=== PATIENT | male | born 1955 | race Caucasian/White ===

== ENCOUNTER 2016-12-23 20:49 | Observation (INO) | payer OTHER ==
[~2016-12-23 20:49] MED LIST: ATOR10TA15 PO; CHOL5000 PO; FENT75DI T-DERMAL; FLUT1SPR20; FOLI1TAB4 PO; LISI-515 PO; MAGN400T2 PO; MULT-135 PO; OMEP20TA PO; OXYC20TA17 PO; PERC10TA27 PO; SLO-500T PO; VITA50TA10 PO; WALKER WHEELS/F1 MIS; XANA1TAB2 PO; XARE10TA PO
[2016-12-23 21:17] VITALS: BP 129/78; PULSE 76; RESP 18; TEMP 98; O2SAT 95
[2016-12-23] MEDS ORDERED: SODIUM CHLOR 0.9% 1000 ML INJ 1,000 ML IV SCH (21:44)
[2016-12-23 21:45] VITALS: BP 138/84; PULSE 80; RESP 18; O2SAT 98
[2016-12-23] MEDS ORDERED: HALOPERIDOL LACTATE 5 MG/ML AMP IM ONE (21:45)
[2016-12-23] MEDS ORDERED: SODIUM CHLORIDE 0.9% FLUSH 10 ML FLUSH IVF PRN (21:45)
--- NOTE | 2016-12-23 21:51 | PD ---
HPI Chief Complaint: Altered Mental Status Time Seen by Provider: 21:50 Travel History International Travel<30 days: No Contact w/Intl Traveler<30days: No Traveled to known affect area: No History of Present Illness HPI 61-year-old male presents to the ED via EMS after being found naked in his backyard, screaming for help by his neighbors. On presentation the patient is alert, sitting up in bed, calling out, attempting to leave the ED. He refuses to answer any questions. He has prescription medications with him which are oxycodone, Xanax and nortriptyline. PFSH Past Medical History Anxiety: No Depression: No Cancer: No Cardiovascular Problems: No Chemotherapy: No Cerebrovascular Accident: Yes Diabetes: No Endocrine: No Genitourinary: No Hepatitis: Yes Hiatal Hernia: No Hypertension: Yes Immune Disorder: No Kidney Stones: Yes (LITHOTRIPSY) Musculoskeletal: Yes (INJECTIONS IN BACK FOR ARTHRITIS IN PAIN) Neurologic: Yes (L LEG PAIN AND NUMBNESS) Psychiatric: No Reproductive: No Respiratory: No (SINUS PROBLEMS) Radiation Therapy: No Sickle Cell Disease: No Thyroid Disease: No Past Surgical History AICD: No Body Medical Devices: MYESHA IN L FEMUR, L HIP, NEEDLE IN SPINE Joint Replacement: Yes (L HIP) Pacemaker: No Other Surgery: Yes Social History Alcohol Use: No (QUIT 18 YRS AGO PER PT) Tobacco Use: Yes (1 PPD) Substance Use: No Allergies-Medications (Allergen,Severity, Reaction): Coded Allergies: *MDRO Multi-Drug Resistant Organism (Verified Adverse Reaction, Unknown, 08/06/16) 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 - 08/05/2016 Reported Meds & Prescriptions Reported Meds & Active Scripts Active Oxycontin (Oxycodone HCl) 20 Mg Tab 20 Mg PO Q8HR Xarelto (Rivaroxaban) 10 Mg Tab 10 Mg PO DAILY Percocet (Oxycodone-Acetaminophen) 10-325 mg Tab 1 Tab PO Q4H PRN Walker with Front Wheels (Device) 1 Mis Mis 1 Ea .ROUTE DIRECTED Reported Omeprazole 20 Mg Tab 20 Mg PO DAILY Eq Allergy Relief (Fluticasone Propionate (Nasal)) 50 Mcg/Act Spr 1 [place] NA BID Atorvastatin (Atorvastatin Calcium) 10 Mg Tab 10 Mg PO HS Folate (Folic Acid) 1 Mg Tab 1 Mg PO DAILY Vitamin D3 (Cholecalciferol) 5,000 Unit Cap 5,000 Units PO DAILY Slo-Niacin (Niacin) 500 Mg Tab 500 Mg PO BID Magnesium Oxide 400 Mg Tab 400 Mg PO BID Vitamin B-12 (Cyanocobalamin) 50 Mcg Tab 1 Tab PO DAILY Multi Vitamin (Multiple Vitamin) 1 Tab Tab 1 Tab PO DAILY Fentanyl Patch 72 HR (Fentanyl) 75 Mcg/Hr Patch 75 Mcg T-DERMAL Q72H Remove old patch when new one placed. Lisinopril 20 Mg Tab 40 Mg PO DAILY Xanax (Alprazolam) 1 Mg Tab 1 Mg PO TID PRN Review of Systems ROS Limitations: Altered Mental Status, Uncooperative General / Constitutional: Positive: Other (unobtainable) Eyes: Positive: Other (unobtainable) HENT: Positive: Other (unobtainable) Cardiovascular: Positive: Other (unobtainable) Respiratory: Positive: Other (unobtainable) Gastrointestinal: Positive: Other (I'll obtain) Genitourinary: Positive: Other (unobtainable) Musculoskeletal: Positive: Other (unobtainable) Skin: Positive Other (unobtainable) Neurologic: Positive: Other (unobtainable) Psychiatric: Positive: Other (unobtainable) Endocrine: Positive: Other (unobtainable) Hematologic/Lymphatic: Positive: Other (unobtainable) Physical Exam Exam Limitations: Altered Mental Status, Uncooperative Narrative GENERAL: Well-nourished, well-developed white male, sitting up on the stretcher , crying out, attempting to remove his soft restraints. SKIN: Focused skin assessment warm/dry. Well-healed scarring of the midline of the back and left lateral thigh HEAD: Normocephalic. There is blood in his hair but I am unable to identify a laceration of the scalp as he pulls away. EYES: No scleral icterus. No injection or drainage. NECK: trachea midline. No JVD or lymphadenopathy. CARDIOVASCULAR: Regular rate and rhythm without murmurs, gallops, or rubs. RESPIRATORY: Breath sounds clear and equal bilaterally. No accessory muscle use. GASTROINTESTINAL: Abdomen soft, non-tender, nondistended. Active bowel sounds. MUSCULOSKELETAL: No cyanosis, or edema. Patient moves all extremities spontaneously. BACK: Nontender without obvious deformity. No CVA tenderness. Data Data Last Documented VS Vital Signs Date Time Temp Pulse Resp B/P Pulse Ox O2 Delivery O2 Flow Rate FiO2 12/23/16 21:22 77 12/23/16 21:17 98.0 18 129/78 95 Orders Electrocardiogram (12/23/16 21:44) Ammonia (12/23/16 21:44) Complete Blood Count With Diff (12/23/16 21:44) Comprehensive Metabolic Panel (12/23/16 21:44) Prothrombin Time / Inr (Pt) (12/23/16 21:44) Act Partial Throm Time (Ptt) (12/23/16 21:44) Troponin I (12/23/16 21:44) Thyroid Stimulating Hormone (12/23/16 21:44) Urinalysis - C+S If Indicated (12/23/16 21:44) Chest, Single Ap (12/23/16 21:44) Ct Brain W/O Iv Contrast(Rout) (12/23/16 21:44) Blood Glucose (12/23/16 21:44) Ecg Monitoring (12/23/16 21:44) Iv Access Insert/Monitor (12/23/16 21:44) Oximetry (12/23/16 21:44) Sodium Chloride 0.9% Flush (Ns Flush) (12/23/16 21:45) Sodium Chlor 0.9% 1000 Ml Inj (Ns 1000 M (12/23/16 21:44) Drug Screen, Random Urine (12/23/16 21:44) Alcohol (Ethanol) (12/23/16 21:44) Ct Cerv Spine W/O Contrast (12/23/16 21:44) Haloperidol Inj (Haldol Inj) (12/23/16 21:45) Midazolam Inj (Versed Inj) (12/23/16 22:00) Restraints Non-Violent JOSSELIN.Q3H (12/23/16 21:48) Labs Laboratory Tests Test 12/23/16 22:24 White Blood Count 10.3 TH/MM3 Red Blood Count 4.28 MIL/MM3 Hemoglobin 14.0 GM/DL Hematocrit 41.1 % Mean Corpuscular Volume 96.0 FL Mean Corpuscular Hemoglobin 32.6 PG Mean Corpuscular Hemoglobin 34.0 % Concent Red Cell Distribution Width 14.4 % Platelet Count 122 TH/MM3 Mean Platelet Volume 11.5 FL Neutrophils (%) (Auto) 74.7 % Lymphocytes (%) (Auto) 16.4 % Monocytes (%) (Auto) 6.4 % Eosinophils (%) (Auto) 1.8 % Basophils (%) (Auto) 0.7 % Neutrophils # (Auto) 7.7 TH/MM3 Lymphocytes # (Auto) 1.7 TH/MM3 Monocytes # (Auto) 0.7 TH/MM3 Eosinophils # (Auto) 0.2 TH/MM3 Basophils # (Auto) 0.1 TH/MM3 CBC Comment DIFF FINAL Differential Comment MDM Medical Decision Making Medical Screen Exam Complete: Yes Emergency Medical Condition: Yes Medical Record Reviewed: Yes Differential Diagnosis Sepsis versus electrolyte abnormality versus Adjustment disorder versus anxiety versus bipolar versus depression versus dementia versus electrolyte disorder versus malingering versus mood disorder versus ODD versus psychosis versus PTSD versus schizophrenia versus schizoaffective disorder versus substance-induced mood disorder versus other Narrative Course 61-year-old male presents to the ED via EMS after being found naked in his backyard, screaming for help by his neighbors. On presentation the patient is alert, sitting up in bed, calling out, attempting to leave the ED. He refuses to answer any questions. He has prescription medications with him which are oxycodone, Xanax and nortriptyline. Vitals reviewed. Physical exam reveals an alert white male, sitting up on the stretcher, resisting his restraints, crying out constantly. Exam limited by his resistance. There are well-healed scarring of the midline of the back of the left lateral thigh. There is blood in his hair, unable to identify a laceration of the scalp as he continues to pull away from exam. There is a regular rate and rhythm without appreciable M/R /G. Breath sounds are clear and equal bilaterally. Abdomen soft and nontender. Active bowel sounds. Patient is moving extremities spontaneously. Review of the record reveals previous diagnosis of drug-induced psychosis. IV was established. 5 out of Haldol and 4 of Versed ordered. CBC, CMP, UA, drug screen, EKG, chest x-ray, cardiac enzymes, magnesium, CT of the head and cervical spine are pending at this time. Dr. Marshall will assume care of this patient. Please see her note for disposition. Pati Lugo Dec 23, 2016 21:51
[2016-12-23] MEDS ORDERED: MIDAZOLAM HCL 5 MG/ML VIAL (1 ML) IM ONE (22:00)
[2016-12-23 22:30] VITALS: BP 136/86; PULSE 80; RESP 18; O2SAT 97
[2016-12-23 22:45] LABS: AUTOMATED NEUTROPHIL # 7.7 TH/MM3 (1.8-7.7); BASOPHIL # 0.1 TH/MM3 (0-0.2); BASOPHIL % 0.7 % (0.0-2.0); EOSINOPHIL # 0.2 TH/MM3 (0-0.4); EOSINOPHIL % 1.8 % (0.0-4.0); HEMATOCRIT 41.1 % (39.0-51.0); HEMO FLAGS DIFF FINAL; LYMPH % 16.4 % (9.0-44.0); LYMPHOCYTE # 1.7 TH/MM3 (1.0-4.8); MEAN CORPUSCULAR HEMOGLOBIN 32.6 PG (27.0-34.0); MONO % 6.4 % (0.0-8.0); NEUT % 74.7 % (16.0-70.0); PLATELET COUNT 122 TH/MM3 (150-450); RED BLOOD COUNT 4.28 MIL/MM3 (4.50-5.90); RED CELL DISTRIBUTION WIDTH 14.4 % (11.6-17.2); WHITE BLOOD COUNT 10.3 TH/MM3 (4.0-11.0)
[2016-12-23 22:59] LABS: APTT (PATIENT) 27.1 SEC (24.3-30.1); PROTHROMBIN TIME - PATIENT 11.3 SEC (9.8-11.6)
[2016-12-23 23:14] LABS: ALT (GPT) 40 U/L (12-78); ANION GAP 7 MEQ/L (5-15); AST (GOT) 30 U/L (15-37); BLOOD UREA NITROGEN 15 MG/DL (7-18); CHLORIDE 107 MEQ/L (98-107); GLOMERULAR FILTRATION RATE 105 ML/MIN (>89); POTASSIUM 3.9 MEQ/L (3.5-5.1); SODIUM (NA) 144 MEQ/L (136-145)
[2016-12-23 23:24] LABS: ALKALINE PHOSPHATASE 58 U/L (45-117); TOTAL BILIRUBIN ADULT 0.6 MG/DL (0.2-1.0)
[2016-12-24] VITALS (8 sets, daily range): BP systolic 131–194; BP diastolic 72–99; PULSE 56–79; RESP 16–18; O2SAT 93–97
[2016-12-24] MEDS ORDERED: MIDAZOLAM HCL 2 MG/2 ML VIAL IV PUSH ONE (00:15)
[2016-12-24] MEDS ORDERED: HALOPERIDOL LACTATE 5 MG/ML AMP IV ONE (00:15)
--- NOTE | 2016-12-24 01:32 | RADRPT ---
EXAM DATE/TIME: 12/24/2016 01:12 [facility] COMPARISON: No previous studies available for comparison. INDICATIONS : Trauma, unknown injury. RADIATION DOSE: 22.64 CTDIvol (mGy) MEDICAL HISTORY : Non-responsive. SURGICAL HISTORY : Non-responsive. ENCOUNTER: Initial ACUITY: 1 day PAIN SCALE: Non-responsive LOCATION: neck TECHNIQUE: Volumetric scanning of the cervical spine was performed. Multiplanar reconstructions in the sagittal, coronal and oblique axial planes were performed. Using automated exposure control and adjustment o f the mA and/or kV according to patient size, radiation dose was kept as low as reasonably achievable to obtain optimal diagnostic quality images. FINDINGS: VERTEBRAE: Normal vertebral body height. ALIGNMENT: No evidence of subluxation. C2-C3: The bony spinal canal is normal in size. No evidence of disc bulge or herniation. The neural forami na are bilaterally patent. C3-C4: The bony spinal canal is normal in size. No evidence of disc bulge or herniation. The neural forami na are bilaterally patent. C4-C5: Mild disc space narrowing. No evidence of foraminal or spinal stenosis. C5-C6: Mild disc space narrowing and very mild bilateral uncovertebral and facet osteoarthritis. A left fora page disc protrusion is present causing foraminal stenosis. C6-C7: The bony spinal canal is normal in size. No evidence of disc bulge or herniation. The neural forami na are bilaterally patent. C7-T1: The bony spinal canal is normal in size. No evidence of disc bulge or herniation. The neural forami na are bilaterally patent. CONCLUSION: 1. No fracture or subluxation of the cervical spine. 2. Degenerative changes at C4/C5 and C5/C6. Please see above. 3. Age-indeterminate left foraminal protrusion at C5/C6, probably impinging on the exiting left C6 ne rve root. Feroz Brown MD on December 24, 2016 at 1:27 Board Certified Radiologist. This report was verified electronically.
--- NOTE | 2016-12-24 01:33 | RADRPT ---
EXAM DATE/TIME: 12/24/2016 01:10 [facility] COMPARISON: No previous studies available for comparison. INDICATIONS : Altered mental status. RADIATION DOSE: 56.35 CTDIvol (mGy) MEDICAL HISTORY : Non-responsive. SURGICAL HISTORY : Non-responsive. ENCOUNTER: Initial ACUITY: 1 day PAIN SCALE: Non-responsive LOCATION: cranial TECHNIQUE: Multiple contiguous axial images were obtained of the head. Using automated exposure control and adj ustment of the mA and/or kV according to patient size, radiation dose was kept as low as reasonably a chievable to obtain optimal diagnostic quality images. FINDINGS: CEREBRUM: The ventricles are normal for age. No evidence of midline shift, mass lesion, hemorrhage or acute in farction. No extra-axial fluid collections are seen. POSTERIOR FOSSA: The cerebellum and brainstem are intact. The 4th ventricle is midline. The cerebellopontine angle i s unremarkable. EXTRACRANIAL: The visualized portion of the orbits is intact. SKULL: The calvaria is intact. No evidence of skull fracture. CONCLUSION: Negative noncontrast head CT. Feroz Brown MD on December 24, 2016 at 1:32 Board Certified Radiologist. This report was verified electronically.
--- NOTE | 2016-12-24 01:36 | RADRPT ---
EXAM DATE/TIME: 12/24/2016 01:19 [facility] COMPARISON: No previous studies available for comparison. INDICATIONS : Shortness of breath. MEDICAL HISTORY : Unobtainable. SURGICAL HISTORY : Unobtainable. ENCOUNTER: Initial ACUITY: 1 day PAIN SCORE: Non-responsive. LOCATION: Bilateral chest FINDINGS: Slight haziness seen of both upper lung zones, mainly on the right. Early or mild pneumonia possible. No pleural effusion seen. No pneumothorax. Heart size normal. CONCLUSION: Possible early upper lobe consolidation, mainly on the right. Radiographic surveillance recommended. Feroz Brown MD on December 24, 2016 at 1:33 Board Certified Radiologist. This report was verified electronically.
--- NOTE | 2016-12-24 02:49 | PD ---
Physical Exam Narrative I, Dr. Marshall, have reviewed the advance practice practitioner's documentation and am in agreement, met with the patient face to face, made the diagnosis, and the medical decision making was done by me. *My assessment and Findings: Drug induced psychosis vs. alcohol intoxication vs. ? head trauma 61yo M was brought in because he was naked and screaming in his yard. He is moving all extremities but uncooperative. Pt has dried blood on his scalp that is unexplained. Pt was being a threat to himself and others and haldol 5mg IM and versed 4mg IM was initially given. Pt was still very agitated after this and after observation, pt was given another haldol 5mg IV and versed 2mg IV. Pt was placed on continuous upsetter setter up and end tidal CO2. Pt was then calm enough to undergo CT scan. Labs reviewed, no leukocytosis. Ammonia 22. TSH normal. CMP normal. Alcohol negative. CXR showed possible early lobe consolidation, mainly on right. Radiographic surveillance recommended. Will have pt follow up. Pt has no clinical signs of pneumonia here. CT brain negative. CT cspine showed no fracture or subluxation. There is age indeterminate left foraminal protrusion at C5/6, probably impinging on exiting left C6 nerve root. Will have pt follow up as outpatient. Feel that given pt' s history, pt should be evaluated by psych. Taco Acted pt for psych evaluation. Data Data Last Documented VS Vital Signs Date Time Temp Pulse Resp B/P Pulse Ox O2 Delivery O2 Flow Rate FiO2 12/24/16 05:37 60 18 134/82 94 Room Air 12/23/16 21:17 98.0 Orders Electrocardiogram (12/23/16 21:44) Ammonia (12/23/16 21:44) Complete Blood Count With Diff (12/23/16 21:44) Comprehensive Metabolic Panel (12/23/16 21:44) Prothrombin Time / Inr (Pt) (12/23/16 21:44) Act Partial Throm Time (Ptt) (12/23/16 21:44) Troponin I (12/23/16 21:44) Thyroid Stimulating Hormone (12/23/16 21:44) Urinalysis - C+S If Indicated (12/23/16 21:44) Chest, Single Ap (12/23/16 21:44) Ct Brain W/O Iv Contrast(Rout) (12/23/16 21:44) Blood Glucose (12/23/16 21:44) Ecg Monitoring (12/23/16 21:44) Iv Access Insert/Monitor (12/23/16 21:44) Oximetry (12/23/16 21:44) Sodium Chloride 0.9% Flush (Ns Flush) (12/23/16 21:45) Sodium Chlor 0.9% 1000 Ml Inj (Ns 1000 M (12/23/16 21:44) Drug Screen, Random Urine (12/23/16 21:44) Alcohol (Ethanol) (12/23/16 21:44) Ct Cerv Spine W/O Contrast (12/23/16 21:44) Haloperidol Inj (Haldol Inj) (12/23/16 21:45) Midazolam Inj (Versed Inj) (12/23/16 22:00) Restraints Non-Violent JOSSELIN.Q3H (12/23/16 21:48) Haloperidol Inj (Haldol Inj) (12/24/16 00:15) Midazolam Inj (Versed Inj) (12/24/16 00:15) Qa Developer / Telemetry JOSSELIN.Q8H (12/24/16 01:23) End Tidal Co2 (Etco2) (12/24/16 ) Psych Screen (12/24/16 02:53) Labs Laboratory Tests Test 12/23/16 22:24 White Blood Count 10.3 TH/MM3 Red Blood Count 4.28 MIL/MM3 Hemoglobin 14.0 GM/DL Hematocrit 41.1 % Mean Corpuscular Volume 96.0 FL Mean Corpuscular Hemoglobin 32.6 PG Mean Corpuscular Hemoglobin 34.0 % Concent Red Cell Distribution Width 14.4 % Platelet Count 122 TH/MM3 Mean Platelet Volume 11.5 FL Neutrophils (%) (Auto) 74.7 % Lymphocytes (%) (Auto) 16.4 % Monocytes (%) (Auto) 6.4 % Eosinophils (%) (Auto) 1.8 % Basophils (%) (Auto) 0.7 % Neutrophils # (Auto) 7.7 TH/MM3 Lymphocytes # (Auto) 1.7 TH/MM3 Monocytes # (Auto) 0.7 TH/MM3 Eosinophils # (Auto) 0.2 TH/MM3 Basophils # (Auto) 0.1 TH/MM3 CBC Comment DIFF FINAL Differential Comment Prothrombin Time 11.3 SEC Prothromb Time International 1.0 RATIO Ratio Activated Partial 27.1 SEC Thromboplast Time Sodium Level 144 MEQ/L Potassium Level 3.9 MEQ/L Chloride Level 107 MEQ/L Carbon Dioxide Level 30.0 MEQ/L Anion Gap 7 MEQ/L Blood Urea Nitrogen 15 MG/DL Creatinine 0.76 MG/DL Estimat Glomerular Filtration 105 ML/MIN Rate Random Glucose 93 MG/DL Calcium Level 9.1 MG/DL Total Bilirubin 0.6 MG/DL Aspartate Amino Transf 30 U/L (AST/SGOT) Alanine Aminotransferase 40 U/L (ALT/SGPT) Alkaline Phosphatase 58 U/L Ammonia 22 MCMOL/L Troponin I LESS THAN 0.02 NG/ML Total Protein 6.9 GM/DL Albumin 3.6 GM/DL Thyroid Stimulating Hormone 1.130 uIU/ML 3rd Gen Ethyl Alcohol Level LESS THAN 3 MG/DL MDM Supervised Visit with PHAM: Yes Interpretation(s) EKG: NSR 78bpm. Normal axis. Narrow QRS. No ST segment elevation or depression. QTc 415ms. Diagnosis Primary Impression: Drug-induced psychotic disorder with delusions Additional Instruction: Please follow up with your PMD regarding possible right upper lobe pneumonia, please follow up with outpatient radiology or your physician if you have any fever, cough, chest pain or sob. Please also follow up regarding an age indeterminate left foraminal protrusion at C5/C6 that was seen on your cervical spine CT. Geri Marshall DO Dec 24, 2016 02:49
--- NOTE | 2016-12-24 07:48 | EKG ---
Date Performed: 12/23/2016 Time Performed: 21:25:32 PTAGE: 61 years EKG: Sinus rhythm NORMAL ECG COMPARED TO PRIOR ELECTROCARDIOGRAM, Premature ectopic beats are no longer present, QT in terval shortened and T wave changes have improved. PREVIOUS TRACING : 07/01/2001 10.08 DOCTOR: Kelby Khan Interpretating Date/Time 12/24/2016 07:46:37
[2016-12-24 19:30] LABS: AMPHETAMINE, URINE NEG (NEG); BARBITURATES, URINE NEG (NEG); COCAINE, URINE NEG (NEG)
[2016-12-24] MEDS ORDERED: BISACODYL 10 MG SUPP RECTAL PRN (19:30)
[2016-12-24] MEDS ORDERED: RESP: ALBUTEROL 2.5 MG/IPRATROPIUM 0.5 MG NEB (PRN) NEB (19:30)
[2016-12-24] MEDS ORDERED: ONDANSETRON HCL 4 MG/2 ML VIAL IVP PRN (19:30)
[2016-12-24] MEDS ORDERED: ACETAMINOPHEN 325 MG TAB PO PRN (19:30)
--- NOTE | 2016-12-24 19:34 | HHI.HP ---
[facility] Admission Diagnosis altered mental status Diagnoses: (1) Psychosis Diagnosis: Principal (2) PNA (pneumonia) Diagnosis: Principal (3) Thrombocytopenia Diagnosis: Principal (4) HTN (hypertension) Diagnosis: Principal Travel History International Travel<30 Days: No Contact w/Intl Traveler <30 Da: No Traveled to Known Affected Are: No History of Present Illness This is a 61-year-old male with a PMH of HTN, Chronic Back Pain, Tobacco Abuse and h/o Cocaine Abuse who was brought to the ER by EMS after being found naked in his yard screaming for help. Pt unable to provide much history. On arrival to ER was significantly agitated requiring multiple doses of Haldol, Psych Screen attempted on few occasions however unable to obtain due to sedation. Noted to have prescription bottles on Oxycodone, Xanax and Nortriptyline. Urine Drug Screen positive for Benzo. Thought to have Drug-Induced Psychotic Disorder and evaluated by bandsaw operator, however not felt to be appropriate admit for Psych, therefore we were asked to admit. Labs essentially unremarkable except for Platelets 122, previously 125 on 05/07/16. Chemistry unremarkable. Trop negative. CT Head w/ no acute findings. CT C-Spine with no fracture or subluxation of cervical spine. CXR with possible early upper lobe consolidation mainly on right. Pt remains confused, incoherent w/ difficulty ambulating. Review of Systems ROS: Unable to obtain secondary to AMS. Past Family Social History Past Medical History PMH: HTN, Chronic Back Pain, Tobacco Abuse and h/o Cocaine Abuse Past Surgical History PAST SURGICAL HISTORY: Left Hip Replacement Allergies: Coded Allergies: *MDRO Multi-Drug Resistant Organism (Verified Adverse Reaction, Unknown, 08/06/16) 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 - 08/05/2016 Family History PAST FAMILY HISTORY: Reviewed. No h/o DM or CAD Social History PAST SOCIAL HISTORY: H/o Alcohol Abuse. Smokes 1ppd. H/o Cocaine Abuse. Physical Exam Vital Signs Vital Signs Date Time Temp Pulse Resp B/P Pulse Ox O2 Delivery O2 Flow Rate FiO2 4/28/17 11:19 56 18 131/86 97 Room Air 12/24/16 05:37 60 18 134/82 94 Room Air 12/24/16 04:35 64 18 146/75 93 Room Air 12/24/16 03:08 71 18 167/88 97 Room Air 12/24/16 02:20 73 18 194/83 96 Room Air 12/24/16 01:40 74 18 179/99 96 Room Air 12/24/16 00:00 71 18 170/94 95 Room Air 12/23/16 22:30 80 18 136/86 97 Room Air 12/23/16 21:45 80 18 138/84 98 Room Air 12/23/16 21:22 77 12/23/16 21:17 98.0 76 18 129/78 95 Physical Exam PE: GENERAL: Middle-aged male in no acute distress. HEENT: PERRLA, EOMI. No scleral icterus or conjunctival pallor. No lid lag or facial droop. CARDIOVASCULAR: Regular rate and rhythm. No obvious murmurs to auscultation. No chest tenderness to palpation. RESPIRATORY: No obvious rhonchi or wheezing. Clear to auscultation. Breath sounds equal bilaterally. GASTROINTESTINAL: Abdomen soft, non-tender, nondistended. BS normal. MUSCULOSKELETAL: Extremities without clubbing, cyanosis, or edema. No obvious deformities. NEUROLOGICAL: Awake, confused. No focal neurologic deficits. Moving both upper and lower extremities spontaneously. Laboratory Laboratory Tests Test 12/23/16 22:24 White Blood Count 10.3 Red Blood Count 4.28 Hemoglobin 14.0 Hematocrit 41.1 Mean Corpuscular Volume 96.0 Mean Corpuscular Hemoglobin 32.6 Mean Corpuscular Hemoglobin 34.0 Concent Red Cell Distribution Width 14.4 Platelet Count 122 Mean Platelet Volume 11.5 Neutrophils (%) (Auto) 74.7 Lymphocytes (%) (Auto) 16.4 Monocytes (%) (Auto) 6.4 Eosinophils (%) (Auto) 1.8 Basophils (%) (Auto) 0.7 Neutrophils # (Auto) 7.7 Lymphocytes # (Auto) 1.7 Monocytes # (Auto) 0.7 Eosinophils # (Auto) 0.2 Basophils # (Auto) 0.1 CBC Comment DIFF FINAL Differential Comment Prothrombin Time 11.3 Prothromb Time International 1.0 Ratio Activated Partial 27.1 Thromboplast Time Sodium Level 144 Potassium Level 3.9 Chloride Level 107 Carbon Dioxide Level 30.0 Anion Gap 7 Blood Urea Nitrogen 15 Creatinine 0.76 Estimat Glomerular Filtration 105 Rate Random Glucose 93 Calcium Level 9.1 Total Bilirubin 0.6 Aspartate Amino Transf 30 (AST/SGOT) Alanine Aminotransferase 40 (ALT/SGPT) Alkaline Phosphatase 58 Ammonia 22 Troponin I LESS THAN 0.02 Total Protein 6.9 Albumin 3.6 Thyroid Stimulating Hormone 1.130 3rd Gen Ethyl Alcohol Level LESS THAN 3 Result Diagram: 12/23/16222312/23/162223 Assessment and Plan Problem List: (1) Psychosis ICD Code: F29 Status: Acute (2) PNA (pneumonia) ICD Code: J18.9 Status: Acute (3) Thrombocytopenia ICD Code: D69.6 Status: Acute (4) HTN (hypertension) ICD Code: I10 Status: Acute Assessment and Plan A/P: 1. Psychosis: Unclear etiology, thought to be Drug-Induced? secondary to multiple prescription medications, including Oxycodone, Xanax and Nortriptyline. H/o Cocaine Abuse, however Urine Drug Screen positive only for Benzo. Pt unable to provide much history, has no recollection of events leading to ER presentation. CT Head/C-Spine w/ no acute findings, images reviewed by me. S/p Psych Screen in ER-not thought to be due to psych issues. Labs essentially unremarkable. Will admit for Observation, monitor, PT for eval /tx, Social Work for assistance w/ discharge planning. 2. PNA: CXR w/ early upper lobe consolidation, images reviewed by me. Afebrile, no leukocytosis. Start IV Rocephin/Zithro, DuoNeb prn. 3. Thrombocytopenia: Platelets 122, previously 125. No active bleeding noted. Will monitor. 4. HTN: BP 190's on arrival, likely compounded by significant agitation, currently BP 140's systolic. Will monitor. 5. DVT Prophylaxis: SCD/Teds 6. Social work for d/c planning as needed. 7. Case discussed w/ ER physician at length. Sangeetha Dimas MD Dec 24, 2016 19:34
[2016-12-24 19:44] LABS: BLOOD, URINE NEG (NEG); GLUCOSE,URINE TRACE mg/dL (NEG); KETONE, URINE 40 mg/dL (NEG); NITRITE,URINE NEG (NEG); PH, URINE 6.5 (5.0-8.5); URINE COLOR YELLOW (YELLW/STRAW)
--- NOTE | 2016-12-24 19:44 | PD ---
Data Data Last Documented VS Vital Signs Date Time Temp Pulse Resp B/P Pulse Ox O2 Delivery O2 Flow Rate FiO2 12/24/16 11:19 56 18 131/86 97 Room Air 12/23/16:17 98.0 Orders Electrocardiogram (12/23/16 21:44) Ammonia (12/23/16 21:44) Complete Blood Count With Diff (12/23/16 21:44) Comprehensive Metabolic Panel (12/23/16 21:44) Prothrombin Time / Inr (Pt) (12/23/16 21:44) Act Partial Throm Time (Ptt) (12/23/16 21:44) Troponin I (12/23/16 21:44) Thyroid Stimulating Hormone (12/23/16 21:44) Urinalysis - C+S If Indicated (12/23/16 21:44) Chest, Single Ap (12/23/16 21:44) Ct Brain W/O Iv Contrast(Rout) (12/23/16 21:44) Blood Glucose (12/23/16 21:44) Ecg Monitoring (12/23/16 21:44) Iv Access Insert/Monitor (12/23/16 21:44) Oximetry (12/23/16 21:44) Sodium Chloride 0.9% Flush (Ns Flush) (12/23/16 21:45) Sodium Chlor 0.9% 1000 Ml Inj (Ns 1000 M (12/23/16 21:44) Drug Screen, Random Urine (12/23/16 21:44) Alcohol (Ethanol) (12/23/16 21:44) Ct Cerv Spine W/O Contrast (12/23/16 21:44) Haloperidol Inj (Haldol Inj) (12/23/16 21:45) Midazolam Inj (Versed Inj) (12/23/16 22:00) Restraints Non-Violent JOSSELIN.Q3H (12/23/16 21:48) Haloperidol Inj (Haldol Inj) (12/24/16 00:15) Midazolam Inj (Versed Inj) (12/24/16 00:15) Marble Installer Supervisor / Telemetry JOSSELIN.Q8H (12/24/16 01:23) End Tidal Co2 (Etco2) (12/24/16 ) Psych Screen (12/24/16 02:53) Diet Regular Basic (12/24/16 Dinner) Ceftriaxone Inj (Rocephin Inj) (12/24/16 21:00) Azithromycin Inj (Zithromax Inj) (12/24/16 20:00) Albuterol-Ipratropium Neb (Duoneb Neb) (12/24/16 19:30) Lorazepam Inj (Ativan Inj) (12/24/16 19:30) Consult Psychiatry (12/24/16 ) Place In Observation (12/24/16 ) Vital Signs (Adult) Q4H (12/24/16 19:23) Activity Oob With Assistance (12/24/16 19:23) Diet Regular Basic (12/25/16 Breakfast) Sodium Chlor 0.9% 1000 Ml Inj (Ns 1000 M (12/24/16 19:23) Sodium Chloride 0.9% Flush (Ns Flush) (12/24/16 19:30) Sodium Chloride 0.9% Flush (Ns Flush) (12/24/16 21:00) Ondansetron Inj (Zofran Inj) (12/24/16 19:30) Bisacodyl Supp (Dulcolax Supp) (12/24/16 19:30) Comprehensive Metabolic Panel (12/25/16 06:00) Complete Blood Count With Diff (12/25/16 06:00) Scd Bilateral/Knee High JOSSELIN.BID (12/24/16 19:23) Adarsh Bilateral/Knee High JOSSELIN.QSHIFT (12/24/16 19:23) Acetaminophen (Tylenol) (12/24/16 19:30) Admit Order (Ed Use Only) (12/24/16 ) Labs Laboratory Tests Test 12/23/16 22:24 White Blood Count 10.3 TH/MM3 Red Blood Count 4.28 MIL/MM3 Hemoglobin 14.0 GM/DL Hematocrit 41.1 % Mean Corpuscular Volume 96.0 FL Mean Corpuscular Hemoglobin 32.6 PG Mean Corpuscular Hemoglobin 34.0 % Concent Red Cell Distribution Width 14.4 % Platelet Count 122 TH/MM3 Mean Platelet Volume 11.5 FL Neutrophils (%) (Auto) 74.7 % Lymphocytes (%) (Auto) 16.4 % Monocytes (%) (Auto) 6.4 % Eosinophils (%) (Auto) 1.8 % Basophils (%) (Auto) 0.7 % Neutrophils # (Auto) 7.7 TH/MM3 Lymphocytes # (Auto) 1.7 TH/MM3 Monocytes # (Auto) 0.7 TH/MM3 Eosinophils # (Auto) 0.2 TH/MM3 Basophils # (Auto) 0.1 TH/MM3 CBC Comment DIFF FINAL Differential Comment Prothrombin Time 11.3 SEC Prothromb Time International 1.0 RATIO Ratio Activated Partial 27.1 SEC Thromboplast Time Sodium Level 144 MEQ/L Potassium Level 3.9 MEQ/L Chloride Level 107 MEQ/L Carbon Dioxide Level 30.0 MEQ/L Anion Gap 7 MEQ/L Blood Urea Nitrogen 15 MG/DL Creatinine 0.76 MG/DL Estimat Glomerular Filtration 105 ML/MIN Rate Random Glucose 93 MG/DL Calcium Level 9.1 MG/DL Total Bilirubin 0.6 MG/DL Aspartate Amino Transf 30 U/L (AST/SGOT) Alanine Aminotransferase 40 U/L (ALT/SGPT) Alkaline Phosphatase 58 U/L Ammonia 22 MCMOL/L Troponin I LESS THAN 0.02 NG/ML Total Protein 6.9 GM/DL Albumin 3.6 GM/DL Thyroid Stimulating Hormone 1.130 uIU/ML 3rd Gen Ethyl Alcohol Level LESS THAN 3 MG/DL MDM Supervised Visit with PHAM: No Narrative Course I was called by the nurse reassess this patient. Patient was seen overnight last night with altered mental status, running around naked, required sedation and restraint, with a negative workup. Patient is still confused, not able to give coherent answers. He is able to talk more than before. Denies using any illicit drugs. Doesn't remember what happened last night. Denies running around naked in his yard. He apparently fell twice in the room. He doesn't appear to be injured. Psychiatry does not want to admit them because they are not sure that it psychiatric in nature and believe that he is a fall risk. I reviewed his past records. I spoke with Dr. Jimenez will admit the patient. Diagnosis Primary Impression: Drug-induced psychotic disorder with delusions Additional Instruction: Please follow up with your PMD regarding possible right upper lobe pneumonia, please follow up with outpatient radiology or your physician if you have any fever, cough, chest pain or sob. Please also follow up regarding an age indeterminate left foraminal protrusion at C5/C6 that was seen on your cervical spine CT. Javier Chamberlain MD Dec 24, 2016 19:44
[2016-12-24 19:46] LABS: COMMENT (UR) CATH-CULT NOT IND; CULTURE IF INDICATED CATH CULTURE NOT IND
[2016-12-24] MEDS: SODIUM CHLOR 0.9% 1000 ML INJ 1,000 ML IV SCH (20:09)
[2016-12-24] MEDS: AZITHROMYCIN INJ 500 MG in SODIUM CHLOR 0.9% 250 ML INJ 250 ML IV SCH (20:10)
[2016-12-24] MEDS: SODIUM CHLORIDE 0.9% FLUSH 10 ML FLUSH IV FLUSH PRN (22:23)
[2016-12-24] MEDS: cefTRIAXone INJ 1,000 MG in SODIUM CHLORIDE 0.9% INJ 100 ML IV SCH (22:37)
[2016-12-24] MEDS: SODIUM CHLORIDE 0.9% FLUSH 10 ML FLUSH IV FLUSH SCH (22:37)
[2016-12-25] VITALS (10 sets, daily range): BP systolic 135–166; BP diastolic 69–92; PULSE 65–77; RESP 16–18; TEMP 96.9–98.3; O2SAT 95–98
[2016-12-25] MEDS: LORazepam 2 MG/ML VIAL IV PUSH PRN ×5 (00:29→23:10)
[2016-12-25] MEDS: SODIUM CHLOR 0.9% 1000 ML INJ 1,000 ML IV SCH ×2 (05:23→08:22)
[2016-12-25 06:58] LABS: ALT (GPT) 40 U/L (12-78); ANION GAP 12 MEQ/L (5-15); AST (GOT) 57 U/L (15-37); BICARBONATE 21.5 MEQ/L (21.0-32.0); BLOOD UREA NITROGEN 9 MG/DL (7-18); CHLORIDE 113 MEQ/L (98-107); GLOMERULAR FILTRATION RATE 197 ML/MIN (>89); SODIUM (NA) 146 MEQ/L (136-145)
[2016-12-25 06:59] LABS: ALKALINE PHOSPHATASE 55 U/L (45-117); TOTAL BILIRUBIN ADULT 0.6 MG/DL (0.2-1.0)
[2016-12-25 07:01] LABS: POTASSIUM 3.8 MEQ/L (3.5-5.1)
[2016-12-25 07:27] LABS: HEMATOCRIT 42.9 % (39.0-51.0); HEMO FLAGS AUTO DIFF; MEAN CELL VOLUME 93.9 FL (80.0-100.0); MEAN CORPUSCULAR HEMOGLOBIN 32.2 PG (27.0-34.0); MEAN CORPUSCULAR HGB CONC 34.3 % (32.0-36.0); PLATELET COUNT 113 TH/MM3 (150-450); RED BLOOD COUNT 4.56 MIL/MM3 (4.50-5.90); RED CELL DISTRIBUTION WIDTH 14.3 % (11.6-17.2); WHITE BLOOD COUNT 7.5 TH/MM3 (4.0-11.0)
[2016-12-25] MEDS: SODIUM CHLORIDE 0.9% FLUSH 10 ML FLUSH IV FLUSH SCH ×2 (08:20→20:40)
[2016-12-25 08:46] LABS: BANDS 1 % (0-6); EOSINOPHILS 1 % (0-4); PLATELET ESTIMATE SMEAR LOW (NORMAL); PLATELET MORPHOLOGY NORMAL (NORMAL); POLYS (SEG NEUTROPHILS) 65 % (16-70); SCAN/DIFF FINAL DIFF MANUAL; WBC DIFF SAMPLE 100
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
--- NOTE | 2016-12-25 10:06 | RADRPT ---
EXAM DATE/TIME: 12/25/2016 09:46 [facility] COMPARISON: CHEST SINGLE AP, December 24, 2016, 1:19. INDICATIONS : Evaluate for pneumonia. MEDICAL HISTORY : None. SURGICAL HISTORY : None. ENCOUNTER: Subsequent ACUITY: 2 days PAIN SCORE: 0/10 LOCATION: chest FINDINGS: A single view of the chest demonstrates the lungs to be symmetrically aerated without evidence of mas s, infiltrate or effusion. The cardiomediastinal contours are unremarkable. Osseous structures are intact. CONCLUSION: Normal examination. Carlos Harris MD on December 25, 2016 at 10:04 Board Certified Radiologist. This report was verified electronically.
[2016-12-25] MEDS: D5-1/2 NS + KCL 20 MEQ INJ 1,000 ML IV SCH ×2 (10:34→20:37)
--- NOTE | 2016-12-25 15:29 | PD.CONS ---
Provisional Diagnosis Admission Date Dec 24, 2016 at 19:33 [place] I. Delirium due to underlying medical condition/substance use something induced, substance induced psychosis History of Present Illness Service Psychiatry Consult Requested By Primary Care Physician [facility] HPI The patient is a 61-year-old man, domiciled, unemployed, 100% service connected with CT, psychiatric history of substance-induced mood psychosis, opiates, cocaine and benzodiazepines use disorder, no psychiatric hospitalizations, no previous suicidal attempts, medical history of HTN, Chronic Back Pain, who was brought to the ER by EMS after being found naked in his yard screaming for help. Pt unable to provide much history. On arrival to ER was significantly agitated requiring multiple doses of Haldol, Psych Screen attempted on few occasions however unable to obtain due to sedation. Noted to have prescription bottles on Oxycodone, Xanax and Nortriptyline. Urine Drug Screen positive for Benzo. Labs essentially unremarkable except for Platelets 122, previously 125 on 05/07/16. Chemistry unremarkable. Trop negative. CT Head w/ no acute findings. CT C-Spine with no fracture or subluxation of cervical spine. CXR with possible early upper lobe consolidation mainly on right. On psychiatric evaluation patient is calm, cooperative even though his pleasantly confused and disoriented, but redirectable. He denies depressive symptoms, he denies anxiety, he denies kaitlynn, he denies suicidal or homicidal ideation, he denies visual and auditory hallucinations. Patient is disoriented , he things that he is in [place], and we are [place]. Patient seems to have a short attention span and fluctuation of consciousness.. Review of Systems Constitutional: DENIES: Diaphoretic episodes, Fatigue, Fever, Weight gain, Weight loss, Chills, Dizziness, Change in appetite, Night Sweats Respiratory: DENIES: Apneas, Cough, Snoring, Wheezing, Hemoptysis, Sputum production, Shortness of breath Cardiovascular: DENIES: Chest pain, Palpitations, Syncope, Dyspnea on Exertion , PND, Lower Extremity Edema, Orthopnea, Claudication Gastrointestinal: DENIES: Abdominal pain, Black stools, Bloody stools, Constipation, Diarrhea, Nausea, Vomiting, Difficulty Swallowing, Anorexia Genitourinary: DENIES: Sexual dysfunction, Urinary frequency, Urinary incontinence, Urgency, Hematuria, Dysuria, Nocturia, Penile Discharge, Testicular Pain, Testicular Swelling Musculoskeletal: DENIES: Joint pain, Muscle aches, Stiffness, Joint Swelling, Back pain, Neck pain Integumentary: DENIES: Abnormal pigmentation, Nail changes, Pruritus, Rash Hematologic/lymphatic: DENIES: Bruising, Lymphadenopathy Neurologic: DENIES: Abnormal gait, Headache, Localized weakness, Paresthesias, Seizures, Speech Problems, Tremor, Poor Balance Past Family Social History Coded Allergies: *MDRO Multi-Drug Resistant Organism (Verified Adverse Reaction, Unknown, 08/06/16) 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 - 08/05/2016 Active Scripts Oxycodone ER (Oxycontin)20 Mg Tab20 Mg PO Q8HR #50 TAB Ref 0 Prov:Nacho Roger 08/12/16 Rivaroxaban (Xarelto)10 Mg Tab10 Mg PO DAILY #14 TAB Ref 0 Prov:Nacho Roger 08/11/16 Oxycodone-Acetaminophen (Percocet)10-325 mg Tab1 Tab PO Q4H PRN (PAIN) #60 TAB Ref 0 Prov:Nacho Roger 08/11/16 Reported Medications Omeprazole 20 Mg Tab20 Mg PO DAILY #30 TAB Ref 0 08/11/16 Fluticasone Propionate (Nasal) (Eq Allergy Relief)50 Mcg/Act Spr1 Eunice NA BID 08/11/16 Atorvastatin 10 Mg Tab10 Mg PO HS #30 TAB Ref 0 08/11/16 Folic Acid (Folate)1 Mg Tab1 Mg PO DAILY Ref 0 08/11/16 Cholecalciferol (Vitamin D3)5,000 Unit Cap5,000 Units PO DAILY #1 BOTTLE Ref 0 08/11/16 Niacin ER (Slo-Niacin)500 Mg Snw233 Mg PO BID #60 TAB Ref 0 08/11/16 Magnesium Oxide 400 Mg [id number] Mg PO BID Ref 0 08/11/16 Cyanocobalamin (Vitamin B-12)50 Mcg Tab1 Tab PO DAILY #1 BOTTLE Ref 0 08/05/16 Multiple Vitamin (Multi Vitamin)1 Tab Tab1 Tab PO DAILY 08/05/16 Fentanyl Patch 72 HR 75 Mcg/Hr Patch75 Mcg T-DERMAL Q72H #10 PATCH Ref 0 Remove old patch when new one placed. 08/05/16 Lisinopril 20 Mg Tab40 Mg PO DAILY #30 TAB Ref 0 08/05/16 Alprazolam (Xanax)1 Mg Tab1 Mg PO TID PRN (ANXIETY) Ref 0 08/05/16 Current Medications Medications (Trade) Dose Ordered Sig/Ger Route Start Time Stop Time Status Last Admin Ceftriaxone Sodium 1000 mg/ Sodium Chloride 100 ml @ 200 mls/hr Q24H IV 12/24/16 21:00 12/24/16 22:37 (Zithromax Inj/ NS 250 ml Inj) 250 ml @ 250 mls/hr Q24H IV 12/24/16 20:00 12/24/16 20:10 (Ativan Inj) 1 mg Q2H PRN IV PUSH 12/24/16 19:30 12/25/16 05:38 (NS Flush) 2 ml UNSCH PRN IV FLUSH 12/24/16 19:30 12/24/16 22:23 (NS Flush) 2 ml BID IV FLUSH 12/24/16 21:00 12/24/16 22:37 (Zofran Inj) 4 mg Q6H PRN IVP 12/24/16 19:30 (Dulcolax Supp) 10 mg DAILY PRN RECTAL 12/24/16 19:30 Acetaminophen 650 mg 650 mg Q6H PRN PO 12/24/16 19:30 (D5-1/2 NS + KCl 20 Meq Inj) 1,000 ml @ 100 mls/hr Q10H IV 12/25/16 09:45 12/25/16 10:34 Family History He denies family psychiatric history Social History Patient was born and raised in [place], he lives alone in [place], he is single, unemployed, Physical Exam Vital Signs Vital Signs Date Time Temp Pulse Resp B/P Pulse Ox O2 Delivery O2 Flow Rate FiO2 12/25/16 12:24 98.1 65 16 161/90 96 12/24/16 20:03 Room Air Mental Status Examination Speech: Hesitant, Slow, Incoherent Orientation: Person Memory: Impaired (describe) Thought Process: Loose Association Thought Content: Derealization Hallucination Type: None Suicidal Ideation: No Homicidal Ideation: No Previous Homicide Attempts: No Insight: Poor Affect: Irritable Mood: Irritable Motor Activity: Normal gait Assessment & Plan Problem List: (1) Drug-induced psychotic disorder with delusions Assessment & Plan: On somatic evaluation patient presents persistent fluctuation of consciousness, disorientation, poor attention span, confusion which is to be consistent with delirium of unknown etiology. Patient has a documented history of substance induced psychosis. He denies the use of illicit drugs, is just positive for benzodiazepines. Benzodiazepine withdrawal could be a possible source of psychosis. Will place in [facility]. Recent presentation doesn't seem to be a etiologically related with a primary or major psychiatric illnesses decompensation, however after medical workup if there is no reason for current psychosis, patient may need a psychiatric admission for stabilization. Will order Seroquel 25 mg twice a day. We'll follow-up. ICD Code: F19.950 Assessment & Plan Estimated LOS: days Cory Bateman MD Dec 25, 2016 15:29
[2016-12-25] MEDS: AZITHROMYCIN INJ 500 MG in SODIUM CHLOR 0.9% 250 ML INJ 250 ML IV SCH (20:37)
[2016-12-25] MEDS: QUEtiapine FUMARATE 25 MG TAB PO SCH (20:38)
[2016-12-25] MEDS: cefTRIAXone INJ 1,000 MG in SODIUM CHLORIDE 0.9% INJ 100 ML IV SCH (20:39)
[2016-12-25] MEDS: HALOPERIDOL LACTATE 5 MG/ML AMP IM PRN (21:37)
[2016-12-25] MEDS: SODIUM CHLORIDE 0.9% FLUSH 10 ML FLUSH IV FLUSH PRN (23:10)
[2016-12-26] MEDS: HALOPERIDOL LACTATE 5 MG/ML AMP IM PRN ×2 (03:53→08:14)
[2016-12-26] MEDS: LORazepam 2 MG/ML VIAL IV PUSH PRN ×3 (03:53→07:27)
[2016-12-26] MEDS: D5-1/2 NS + KCL 20 MEQ INJ 1,000 ML IV SCH ×2 (03:55→16:34)
[2016-12-26 04:00] VITALS: BP 161/92; PULSE 96; RESP 20; TEMP 98.5; O2SAT 96
[2016-12-26 07:12] VITALS: PULSE 73; RESP 20; TEMP 98.1; O2SAT 98
[2016-12-26] MEDS: QUEtiapine FUMARATE 25 MG TAB PO SCH ×2 (07:45→20:41)
[2016-12-26] MEDS: SODIUM CHLORIDE 0.9% FLUSH 10 ML FLUSH IV FLUSH SCH ×2 (07:45→20:40)
--- NOTE | 2016-12-26 08:34 | HHI.PR ---
Subjective Remarks Follow-up for encephalopathy, agitation, psychosis. The patient continues to be very agitated and confused overnight. He is only oriented to self and year 2016, however believes he is in [place] and is not aware he is in the hospital. He continues to go off on tangents, not following commands from nursing staff. He states he has 3 cats, two of them named Uriel and Ortega, and the 3rd cat doesn't have a name. He was not able to tell me his sister's name. Patient seen again an hour later with psychiatry Dr. Bateman who recommends further medical work up and neurology evaluation. Agrees patient slightly worse than yesterday. Objective Vitals Vital Signs Date Time Temp Pulse Resp B/P Pulse Ox O2 Delivery O2 Flow Rate FiO2 12/26/16 07:12 98.1 73 20 98 12/26/16 04:00 98.5 96 20 161/92 96 12/25/16 23:38 98.3 73 18 159/85 95 12/25/16 19:32 96.9 73 18 166/ 96 12/25/16 15:43 97.9 72 16 140/92 97 12/25/16 15:00 75 12/25/16 12:24 98.1 65 16 161/90 96 I/O 12/25/16 12/25/16 12/25/16 12/26/16 12/26/16 12/26/16 07:00 15:00 23:00 07:00 15:00 23:00 Intake Total 914 ml Output Total 800 ml 800 ml Balance 914 ml -800 ml -800 ml Intake Oral 240 ml IV Total 674 ml Output Urine Total 800 ml 800 ml # Voids 2 5 1 # Bowel Movements 4 2 1 Result Diagram: 12/25/16 0500 12/25/16 0500 Imaging Last Impressions Chest X-Ray 12/25/16 0000 Signed Impressions: Service Date/Time: Sunday, December 25, 2016 09:46 - CONCLUSION: Normal examination. Carlos Harris MD Head CT 12/23/162143 Signed Impressions: Service Date/Time: Saturday, December 24, 2016 01:10 - CONCLUSION: Negative noncontrast head CT. Feroz Brown MD Cervical Spine CT 12/23/162143 Signed Impressions: Service Date/Time: Saturday, December 24, 2016 01:12 - CONCLUSION: 1. No fracture or subluxation of the cervical spine. 2. Degenerative changes at C4/C5 and C5/C6. Please see above. 3. Age-indeterminate left foraminal protrusion at C5/C6, probably impinging on the exiting left C6 nerve root. Feroz Brown MD Objective Remarks GENERAL: Well-nourished, well-developed middle aged male patient in [facility]. SKIN: Warm and dry. No rash. HEENT: Normocephalic. Atraumatic. Pupils equal and round. Mucous membranes pink and moist. NECK: Supple. Trachea midline. CARDIOVASCULAR: Regular rate and rhythm. S1, S2 noted. No murmur appreciated. RESPIRATORY: No accessory muscle use. Clear to auscultation. Breath sounds equal bilaterally. GASTROINTESTINAL: Abdomen soft, non-tender, nondistended. Normoactive bowel sounds x4. MUSCULOSKELETAL: No obvious deformities. Extremities without clubbing, cyanosis , or edema. NEUROLOGICAL: Awake and alert. No obvious cranial nerve deficits. Motor grossly within normal limits. Moving all extremities spontaneously. Normal speech. PSYCHIATRIC: Very confused, agitated, +visual hallucinations; insight and judgment limited. Medications and IVs Current Medications Medications (Trade) Dose Ordered Sig/Ger Route Start Time Stop Time Status Last Admin (Ativan Inj) 1 mg Q2H PRN IV PUSH 12/24/16 19:30 12/26/16 07:27 (NS Flush) 2 ml UNSCH PRN IV FLUSH 12/24/16 19:30 12/25/16 23:10 (NS Flush) 2 ml BID IV FLUSH 12/24/16 21:00 12/25/16 20:40 (Zofran Inj) 4 mg Q6H PRN IVP 12/24/16 19:30 (Dulcolax Supp) 10 mg DAILY PRN RECTAL 12/24/16 19:30 Acetaminophen 650 mg 650 mg Q6H PRN PO 12/24/16 19:30 (D5-1/2 NS + KCl 20 Meq Inj) 1,000 ml @ 100 mls/hr Q10H IV 12/25/16 09:45 12/26/16 03:55 (SEROquel) 25 mg BID PO 12/25/16 21:00 12/26/16 07:45 (Haldol Inj) 2 mg Q4H PRN IM 12/25/16 16:30 12/26/16 08:14 A/P Problem List: (1) Psychosis ICD Code: F29 Status: Acute (2) PNA (pneumonia) ICD Code: J18.9 Status: Acute (3) Thrombocytopenia ICD Code: D69.6 Status: Acute (4) HTN (hypertension) ICD Code: I10 Status: Acute Assessment and Plan 61-year-old male with a PMH of HTN, Chronic Back Pain, Tobacco Abuse and h/o Cocaine Abuse who was brought to the ER by EMS after being found naked in his yard screaming for help. Pt unable to provide much history. On arrival to ER was significantly agitated requiring multiple doses of Haldol, Psych Screen attempted on few occasions however unable to obtain due to sedation. Noted to have prescription bottles on Oxycodone, Xanax and Nortriptyline. Urine Drug Screen positive for Benzo. 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 Psychosis/Delirium: Unclear etiology, possibly Drug-Induced? polypharmacy with Oxycodone, Xanax, Nortriptyline however patient only reports taking Vicodin. H/ o Cocaine Abuse, however UDS positive only for Benzo. CT Head/C-Spine w/ no acute findings, images reviewed by me. Labs essentially unremarkable. -Psychiatry evaluated, appreciate assistance, started on seroquel 50mg bid. -Patient seems to be getting worse, required Tuff Cuffs today. -Continue Haldol 5mg IM q4h prn (per Dr. Bateman) and IV Ativan 1mg q2h prn however discussed with RN to avoid Benzo if possible. -Consult neurology -Brain MRI ordered -Check blood cultures Mild Rhabdomyolysis: CPK 914, will check repeat. Community Acquired PNA: CXR w/ early upper lobe consolidation, images reviewed by me. Afebrile, no leukocytosis. Started IV Rocephin/Zithro, however repeat CXR with no infiltrate, will discontinue antibiotics. DuoNeb prn. Thrombocytopenia: Platelets 122, previously 125. No active bleeding noted. Will monitor. Stable. HTN: BP 190's on arrival, likely compounded by significant agitation, currently BP 140's systolic. Will monitor. Tobacco Abuse: patient smokes 2PPD. Asking RN for cigarette. Will start nicotine patch. Will funeral planning counselor on tobacco cessation once more oriented. DVT Prophylaxis: SCD/Teds Discussed with Dr. Perry. Yesterday discussed extensively over the phone with patient's sister who is JOANIE Mills, resides in [place]. She states she talked on the phone with the patient and he is very confused, nowhere close to his baseline. He lives alone and is usually able to take care of himself. She states his neighbors found him curled up on his floor naked in position and wouldn't let anyone inside so they called 911. His neighbor is named aSad. The patient has no local family, has a brother in [place] and another brother out of state. His PCP is Dr. Henson and phone number is [phone]. Annika is not aware of his daily medications but knows he takes pain meds for his hip pain. I looked the patient up on [employer] [place] Prescription Drug Monitoring Website which shows the patient last filled Oxycodone 20mg q6h, Alprazolam 1mg q6h on 12/16/[address] Henson. He also sees Dr. Nguyen and last received Percocet 10mg q6h and Fentanyl 75mcg patch on 11/19/16. Annika is not aware of the patient having access to any street/illicit drugs other than what is prescribed to him. She states he also does not drink alcohol. She does not recall any prior psychiatric history. Annika plans to call back Tuesday afternoon for an update unless she is contacted sooner. Sara Bhatt PA-C Dec 26, 2016 08:34
[2016-12-26] MEDS ORDERED: HALOPERIDOL LACTATE 5 MG/ML AMP IM PRN (10:15)
--- NOTE | 2016-12-26 13:13 | MB ---
cc: REID OSEGUERA M.D. DATE OF CONSULTATION: 12/26/2016. REASON FOR CONSULTATION: Mental status change. HISTORY OF PRESENT ILLNESS: Mr. Mills is a 61-year-old man who has a history of chronic pain for which he takes oxycodone as well as Xanax and nortriptyline as well as a history of cocaine abuse who presents with alteration in mental status. Apparently he was found in his yard without clothing screaming for help, very confused and agitated. He received several doses of Haldol without significant improvement. No focal deficits were noted. PAST MEDICAL HISTORY: 1. Left hip replacement. 2. Chronic back pain. 3. Hypertension. 4. History of cocaine abuse. MEDICATIONS AT HOME: He was taking : 1. Oxycodone. 2. Xanax. 3. Nortriptyline. NEUROLOGIC EXAMINATION: VITAL SIGNS: His blood pressure is 161/92, pulse 96, respirations 20, temperature is 98.5 degrees. HIGHER CORTICAL FUNCTIONS: He is lethargic but arousable. He does not answer questions. He does not follow commands. CRANIAL NERVES: Intact. MOTOR: No focal deficit. REFLEXES: Symmetric. IMAGING STUDIES: CT of the brain is unremarkable. Chest x-ray shows possible early upper lobe consolidation. LABS: White count is 7500, hemoglobin 14.7, hematocrit 42.9%, platelets 113,000. Sodium is 144, potassium 3.9, chloride 107, carbon dioxide 30, BUN is 15, creatinine 0.76, calcium 9.1. AST 30, ALT is 40. TSH is 1.13. Tox screen positive for benzodiazepines. Urinalysis: The pH is 6.5, specific gravity 1.011, ketones 40. IMPRESSION: Symptoms of acute psychosis and delirium. This could represent a reaction to his pain medication and Xanax. Would recommend however obtaining an MRI of the brain for further evaluation as well as an EEG. Check additional labs including a serum ammonia, B12 level, and urine porphyrin screen. MD BENEDICTO Butler/ADALID /12:55 PM /1:10 PM
--- NOTE | 2016-12-26 13:43 | HHI.PYPN ---
Subjective Remarks Patient was seen today for psychiatric follow-up along with GLENN Bhatt, patient continues to be very confused, completely disoriented, disorganized, with marked fluctuation of consciousness and attention deficit, unable to provide any significant information for the psychiatric interview at this moment. Patient is visibly responding to internal stimuli, having visual hallucinations, at the moment of the evaluation he says that there were 20 people was inside the room. Review of Systems Other No somatic complaint Objective Alert: Yes [place]: Person Mood: Agitated Affect: Labile Memory Intact: Comment (memory is impaired) Hallucinations: Visual Delusions: No Delusion Type: Other (no delusions elicited) Suicidal: Ideation (no voicing of suicidal ideation) Homicidal: Ideation (no voicing of homicidal ideation) Insight/Judgment Poor Vitals/IOs Vital Signs Date Time Temp Pulse Resp B/P Pulse Ox O2 Delivery O2 Flow Rate FiO2 12/26/16 07:12 98.1 73 20 98 12/24/16 20:03 Room Air Intake and Output 12/25/16 12/25/16 12/26/16 08:00 16:00 00:00 Intake Total 914 ml Output Total 800 ml Balance 914 ml -800 ml Assessment & Plan Problem List: (1) Drug-induced psychotic disorder with delusions ICD Code: F19.950 (2) Delirium due to another medical condition, acute, hyperactive Assessment & Plan: Patient is acutely delirious, every potential medical etiology for acute brain failure needs to be investigated, including neurological causes. Would highly recommend a consult neurology, EEG and LP might be necessary. Will increase Seroquel to 50 mg twice a day. For acute agitation and aggressive behavior, prescribed Haldol 5 mg IM/IV every 8 hours when necessary. [facility] protocol for potential benzodiazepine withdrawal. ICD Code: F05 Assessment & Plan Estimated LOS: days Justification for Cont. Inpt. Patient does not meet criteria for psychiatric admission at this moment Cory Bateman MD Dec 26, 2016 13:43
[2016-12-26 13:56] LABS: AUTOMATED NEUTROPHIL # 5.9 TH/MM3 (1.8-7.7); BASOPHIL % 0.4 % (0.0-2.0); EOSINOPHIL # 0.1 TH/MM3 (0-0.4); EOSINOPHIL % 1.2 % (0.0-4.0); HEMATOCRIT 42.6 % (39.0-51.0); HEMO FLAGS DIFF FINAL; LYMPH % 20.7 % (9.0-44.0); LYMPHOCYTE # 1.8 TH/MM3 (1.0-4.8); MEAN CELL VOLUME 94.4 FL (80.0-100.0); MEAN CORPUSCULAR HEMOGLOBIN 31.7 PG (27.0-34.0); MEAN CORPUSCULAR HGB CONC 33.5 % (32.0-36.0); MONO % 8.7 % (0.0-8.0); PLATELET COUNT 138 TH/MM3 (150-450); RED BLOOD COUNT 4.51 MIL/MM3 (4.50-5.90); RED CELL DISTRIBUTION WIDTH 14.2 % (11.6-17.2); WHITE BLOOD COUNT 8.6 TH/MM3 (4.0-11.0)
[2016-12-26 14:26] LABS: BICARBONATE 24.7 MEQ/L (21.0-32.0); POTASSIUM 3.3 MEQ/L (3.5-5.1)
[2016-12-26] MEDS ORDERED: POTASSIUM CHLORIDE 20 MEQ CONTROLLED RELEASE TAB PO ONE (14:45)
[2016-12-26 15:07] LABS: CKMB 5.4 NG/ML (0.5-3.6)
--- NOTE | 2016-12-26 15:57 | MG ---
cc: REID OSEGUERA M.D. Lab No: Date: 12/26/2016 Age: Sex: M Race: Cc. TEST NUMBER [id number] TECHNIQUE 17 channel EEG. DESCRIPTION The background rhythm is a symmetrical alpha rhythm. Frequency is 8-9 Hz. Amplitude is about 20 microvolts. During drowsiness there is some slowing in the theta range. There does appear to be sleep activity as well in terms of sleep spindles. There are no lateralizing features. There are no epileptiform discharges. Photic stimulation results in a normal driving response. INTERPRETATION This is a normal EEG. MD BENEDICTO Butler/HODA /3:49 PM /3:56 PM
--- NOTE | 2016-12-26 16:00 | RADRPT ---
EXAM DATE/TIME: 12/26/2016 15:27 [place] COMPARISON: No previous studies available for comparison. INDICATIONS : MRI clearance MEDICAL HISTORY : None. SURGICAL HISTORY : None. ENCOUNTER: Initial ACUITY: 1 day PAIN SCORE: 0/10 LOCATION: Lumbar spine FINDINGS: No appreciable compression deformities, or spondylolysis is seen. Slight degenerative changes are se en within the disc space and facets. Chronic atherosclerotic calcifications are seen without any defi nite aneurysmal dilatations for technique. Slight degenerative anterolisthesis L4-5 i identified on t he order of 4-5 mm. Total hip arthroplasty is seen on the left. CONCLUSION: Chronic changes. Willis Cordero MD on December 26, 2016 at 15:57 Board Certified Radiologist. This report was verified electronically.
[2016-12-26 16:25] VITALS: BP 160/81; PULSE 78; RESP 18; TEMP 98; O2SAT 97
[2016-12-26] MEDS: NICOTINE 21 MG/24 HR PATCH T-DERMAL SCH (18:15)
[2016-12-26] MEDS: REMOVE OLD PATCH T-DERMAL SCH (18:15)
[2016-12-26 19:34] VITALS: BP 181/92; PULSE 75; RESP 18; TEMP 98; O2SAT 96
[2016-12-27 00:01] VITALS: BP 172/102; PULSE 79; RESP 18; TEMP 98.4; O2SAT 97
[2016-12-27] MEDS ORDERED: cloNIDine HCL 0.1 MG TAB PO ONE (00:15)
[2016-12-27] MEDS: D5-1/2 NS + KCL 20 MEQ INJ 1,000 ML IV SCH ×3 (00:27→20:52)
[2016-12-27 05:18] VITALS: BP 191/98; PULSE 69; RESP 18; TEMP 98.8; O2SAT 98
[2016-12-27] MEDS: LISINOPRIL 20 MG TAB PO SCH ×2 (05:47→08:37)
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
[2016-12-27 08:03] LABS: AUTOMATED NEUTROPHIL # 5.8 TH/MM3 (1.8-7.7); BASOPHIL % 0.4 % (0.0-2.0); EOSINOPHIL # 0.2 TH/MM3 (0-0.4); EOSINOPHIL % 1.8 % (0.0-4.0); HEMATOCRIT 41.4 % (39.0-51.0); HEMO FLAGS DIFF FINAL; LYMPH % 21.2 % (9.0-44.0); LYMPHOCYTE # 1.8 TH/MM3 (1.0-4.8); MEAN CELL VOLUME 94.3 FL (80.0-100.0); MEAN CORPUSCULAR HEMOGLOBIN 32.7 PG (27.0-34.0); MEAN CORPUSCULAR HGB CONC 34.7 % (32.0-36.0); MONO % 9.5 % (0.0-8.0); NEUT % 67.1 % (16.0-70.0); PLATELET COUNT 149 TH/MM3 (150-450); RED BLOOD COUNT 4.39 MIL/MM3 (4.50-5.90); WHITE BLOOD COUNT 8.6 TH/MM3 (4.0-11.0)
[2016-12-27 08:32] LABS: BICARBONATE 23.1 MEQ/L (21.0-32.0); MAGNESIUM 1.8 MG/DL (1.5-2.5); POTASSIUM 3.2 MEQ/L (3.5-5.1)
[2016-12-27] MEDS: QUEtiapine FUMARATE 25 MG TAB PO SCH ×2 (08:36→20:51)
[2016-12-27] MEDS: NICOTINE 21 MG/24 HR PATCH T-DERMAL SCH (08:37)
[2016-12-27] MEDS: REMOVE OLD PATCH T-DERMAL SCH (08:37)
[2016-12-27] MEDS: SODIUM CHLORIDE 0.9% FLUSH 10 ML FLUSH IV FLUSH SCH ×2 (08:38→20:51)
[2016-12-27 08:41] VITALS: BP 179/99; PULSE 74; RESP 20; TEMP 97.7; O2SAT 93
[2016-12-27] MEDS ORDERED: LISINOPRIL 20 MG TAB PO SCH (09:00)
--- NOTE | 2016-12-27 09:04 | HHI.PYPN ---
Subjective Remarks Patient was seen for psychiatric evaluation today, he is alert, oriented 3, he reports feeling much better, good mood, is logical, coherent and relevant. Can not elaborate about the reason he is in the hospital, doesn't seem to be internally stimulated, no delirium, no paranoia, no agitation, no hostility AGGRESSIVE behavior observed. Patient denies suicidal or homicidal ideation, patient denies visual and auditory hallucinations. As per nurse patient had a good night last night. Review of Systems Other No somatic complaints Objective Alert: Yes [place]: Person, Place, Date, Situation Mood: Calm Affect: Appropriate Memory Intact: Immediate, Remote Hallucinations: Other (patient denies) Delusions: No Delusion Type: Other (no delusions elicited) Suicidal: Ideation (patient denies) Homicidal: Ideation (no voicing of homicidal ideation) Insight/Judgment Good Labs Test 12/26/16 12/26/16 12/27/16 13:13 17:12 07:24 White Blood Count 8.6 TH/MM3 8.6 TH/MM3 Red Blood Count 4.51 MIL/MM3 4.39 MIL/MM3 Hemoglobin 14.3 GM/DL 14.4 GM/DL Hematocrit 42.6 % 41.4 % Mean Corpuscular Volume 94.4 FL 94.3 FL Mean Corpuscular Hemoglobin 31.7 PG 32.7 PG Mean Corpuscular Hemoglobin 33.5 % 34.7 % Concent Red Cell Distribution Width 14.2 % 14.0 % Platelet Count 138 TH/MM3 149 TH/MM3 Mean Platelet Volume 9.7 FL 10.4 FL Neutrophils (%) (Auto) 69.0 % 67.1 % Lymphocytes (%) (Auto) 20.7 % 21.2 % Monocytes (%) (Auto) 8.7 % 9.5 % Eosinophils (%) (Auto) 1.2 % 1.8 % Basophils (%) (Auto) 0.4 % 0.4 % Neutrophils # (Auto) 5.9 TH/MM3 5.8 TH/MM3 Lymphocytes # (Auto) 1.8 TH/MM3 1.8 TH/MM3 Monocytes # (Auto) 0.7 TH/MM3 0.8 TH/MM3 Eosinophils # (Auto) 0.1 TH/MM3 0.2 TH/MM3 Basophils # (Auto) 0.0 TH/MM3 0.0 TH/MM3 CBC Comment DIFF FINAL DIFF FINAL Differential Comment Sodium Level 148 MEQ/L 144 MEQ/L Potassium Level 3.3 MEQ/L 3.2 MEQ/L Chloride Level 115 MEQ/L 113 MEQ/L Carbon Dioxide Level 24.7 MEQ/L 23.1 MEQ/L Anion Gap 8 MEQ/L 8 MEQ/L Blood Urea Nitrogen 6 MG/DL 6 MG/DL Creatinine 0.52 MG/DL 0.46 MG/DL Estimat Glomerular Filtration 162 ML/MIN 187 ML/MIN Rate Random Glucose 96 MG/DL 110 MG/DL Calcium Level 9.3 MG/DL 9.0 MG/DL Total Creatine Kinase 948 U/L 670 U/L Creatine Kinase MB 5.4 NG/ML Creatine Kinase MB % 0.6 % Vitamin B12 Level 1147 PG/ML Ammonia 48 MCMOL/L Magnesium Level 1.8 MG/DL Date/Time Procedure Status Source Growth 12/26/16 19:18 Aerobic Blood Culture Received Blood Peripheral Pending 12/26/16 19:18 Anaerobic Blood Culture Received Blood Peripheral Pending Vitals/IOs Vital Signs Date Time Temp Pulse Resp B/P Pulse Ox O2 Delivery O2 Flow Rate FiO2 12/27/16 08:41 97.7 74 20 179/99 93 12/24/16 20:03 Room Air Intake and Output 12/26/16 12/26/16 12/27/16 08:00 16:00 00:00 Output Total 800 ml 500 ml Balance -800 ml -500 ml Assessment & Plan Problem List: (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 He is fully oriented 3, logical, coherent and relevant. No immediate psychiatric care needed. Can continue Seroquel 50 mg twice a day until patient is finally medically clear. Then could give a prescription for 7-14 days. ICD Code: F05 Assessment & Plan Estimated LOS: days Justification for Cont. Inpt. Patient does not meet criteria for psychiatric admission at this moment Cory Bateman MD December 27, 2016 09:04
[2016-12-27] MEDS ORDERED: GADODIAMIDE PF 287 MG/ML 5 ML VIAL (for RAD MRI) IV ONE (11:04)
--- NOTE | 2016-12-27 11:34 | RADRPT ---
EXAM DATE/TIME: 12/27/2016 10:48 [place] COMPARISON: No previous studies available for comparison. INDICATIONS : Altered mental status. CONTRAST: 14 cc Omniscan (gadodiamide) IV MEDICAL HISTORY : Hypertension. SURGICAL HISTORY : Bilateral hip repairs ENCOUNTER: Subsequent ACUITY: 3 day PAIN SCORE: 0/10 LOCATION: cranial TECHNIQUE: Multiplanar, multisequence MRI of the brain was performed both prior to and following the administrat ion of paramagnetic contrast. FINDINGS: There is a miniscule focus of diffusion restriction and T2 prolongation involving high convexity left parietal cortex near the vertex. The brain is elsewhere are symmetric and normal in morphology and s ignal intensity with no evidence of mass or hemorrhage. There is no abnormal parenchymal enhancement identified. Normal enhancement is present in the intracranial vascular structures. Extracranial struc tures are benign and intact. CONCLUSION: Punctate focus of signal abnormality in the high convexity left parietal cortex. Feroz Martínez MD on December 27, 2016 at 11:29 Board Certified Radiologist. This report was verified electronically.
[2016-12-27 12:27] VITALS: BP 129/91; PULSE 72; RESP 18; TEMP 98.1; O2SAT 98
[2016-12-27 15:07] VITALS: BP 147/89; PULSE 77; RESP 20; TEMP 98.2; O2SAT 96
--- NOTE | 2016-12-27 16:41 | HHI.PR ---
Review/Management Diagnosis mental status change--now appears to have resolved MRI brain finding--I think probably nonspecific Plan follow up labs, urine porphyrine screen. I would recommend repeat brain MRI in 7-10n days to follow up on the MRI findings here Diagnosis/Plan: Subjective Subjective Comments No acute events reported Pt states he recalls the event. States prior to this he was talking with room mate, discussing fiance who 6 years ago. He states he became upset and remembers going to walk outside. States he had similar episode several years ago triggered by stress. Active Medications Current Medications Medications (Trade) Dose Ordered Sig/Ger Route Start Time Stop Time Status Last Admin (Ativan Inj) 1 mg Q2H PRN IV PUSH 12/24/16 19:30 12/26/16 07:27 (NS Flush) 2 ml UNSCH PRN IV FLUSH 12/24/16 19:30 12/25/16 23:10 (NS Flush) 2 ml BID IV FLUSH 12/24/16 21:00 12/25/16 20:40 (Zofran Inj) 4 mg Q6H PRN IVP 12/24/16 19:30 (Dulcolax Supp) 10 mg DAILY PRN RECTAL 12/24/16 19:30 Acetaminophen 650 mg 650 mg Q6H PRN PO 12/24/16 19:30 (D5-1/2 NS + KCl 20 Meq Inj) 1,000 ml @ 100 mls/hr Q10H IV 12/25/16 09:45 12/27/16 11:45 (Haldol Inj) 5 mg Q4H PRN IM 12/26/16 10:15 (SEROquel) 50 mg BID PO 12/26/16 21:00 12/27/16 08:36 (Habitrol 21 Mg Patch.24 Hr) 1 patch DAILY T-DERMAL 12/26/16 18:15 12/27/16 08:37 Miscellaneous Information 1 DAILY T-DERMAL 12/26/16 18:15 12/27/16 08:37 (Prinivil) 40 mg DAILY PO 12/27/16 05:30 12/27/16 08:37 (Norvasc) 10 mg DAILY PO 12/28/16 09:00 Allergies Allergies Coded Allergies *MDRO Multi-Drug Resistant Organism (Verified Adverse Reaction, Unknown, ) Exam I&O / VS 12/26/16 12/26/16 12/27/16 15:00 23:00 07:00 Intake Total 1800 ml Output Total 500 ml 1800 ml Balance -500 ml 0 ml Intake Oral 1200 ml IV Total 600 ml Output Urine Total 500 ml 1800 ml Vital Signs Date Time Temp Pulse Resp B/P Pulse Ox O2 Delivery O2 Flow Rate FiO2 12/27/16 15:07 98.2 77 20 147/89 96 12/27/16 12:27 98.1 72 18 129/91 98 12/27/16 08:41 97.7 74 20 179/99 93 12/27/16 05:18 98.8 69 18 191/98 98 12/27/16 00:01 98.4 79 18 172/102 97 12/26/16 19:34 98.0 75 18 181/92 96 Exam Comments alert, oriented times 3, speech normal, normal recall. comprhension intact. No hallucinations CN 2-12 normal Motor 5/5 BUE and BLE Objective Radiology Results MRI--? tiny diffusion abnormality on left high parietal convexity EEG---normal. Micro and Labs Laboratory Tests Test 12/26/16 12/27/16 17:12 07:24 Ammonia 48 Anti-Nuclear Antibody Screen NEG White Blood Count 8.6 Red Blood Count 4.39 Hemoglobin 14.4 Hematocrit 41.4 Mean Corpuscular Volume 94.3 Mean Corpuscular Hemoglobin 32.7 Mean Corpuscular Hemoglobin 34.7 Concent Red Cell Distribution Width 14.0 Platelet Count 149 Mean Platelet Volume 10.4 Neutrophils (%) (Auto) 67.1 Lymphocytes (%) (Auto) 21.2 Monocytes (%) (Auto) 9.5 Eosinophils (%) (Auto) 1.8 Basophils (%) (Auto) 0.4 Neutrophils # (Auto) 5.8 Lymphocytes # (Auto) 1.8 Monocytes # (Auto) 0.8 Eosinophils # (Auto) 0.2 Basophils # (Auto) 0.0 CBC Comment DIFF FINAL Differential Comment Sodium Level 144 Potassium Level 3.2 Chloride Level 113 Carbon Dioxide Level 23.1 Anion Gap 8 Blood Urea Nitrogen 6 Creatinine 0.46 Estimat Glomerular Filtration 187 Rate Random Glucose 110 Calcium Level 9.0 Magnesium Level 1.8 Total Creatine Kinase 670 Creatine Kinase MB 11.0 Creatine Kinase MB % 1.6 Date/Time Procedure Status Source Growth 12/26/16 19:18 Aerobic Blood Culture - Preliminary Resulted Blood Peripheral NO GROWTH IN 1 DAY 12/26/16 19:18 Anaerobic Blood Culture - Preliminary Resulted Blood Peripheral NO GROWTH IN 1 DAY Craig Saeed PhD December 27, 2016 16:41
[2016-12-27 20:23] VITALS: BP 131/95; PULSE 89; RESP 18; TEMP 98.8; O2SAT 96
[2016-12-28 00:08] VITALS: BP 157/92; PULSE 78; RESP 18; TEMP 98; O2SAT 93
[2016-12-28 04:57] VITALS: BP 160/90; PULSE 75; RESP 18; TEMP 98.4; O2SAT 94
[2016-12-28] MEDS: D5-1/2 NS + KCL 20 MEQ INJ 1,000 ML IV SCH (06:54)
[2016-12-28 08:12] VITALS: BP 157/94; PULSE 78; RESP 20; TEMP 98; O2SAT 93
[2016-12-28] MEDS ORDERED: QUET1TAB7 PO (09:17)
[2016-12-28] MEDS ORDERED: AMLO10 PO (09:17)
--- NOTE | 2016-12-28 09:34 | HHI.DS ---
Discharge Summary Admission Date Dec 24, 2016 at 19:33 Discharge Date: December 28, 2016 Admitting Diagnosis altered mental status (1) Psychosis ICD Code: F29 Diagnosis: Principal (2) HTN (hypertension) ICD Code: I10 Diagnosis: Secondary (3) Delirium due to another medical condition, acute, hyperactive ICD Code: F05 Diagnosis: Secondary (4) Abnormal brain MRI ICD Code: R90.89 Diagnosis: Secondary Procedures none Brief History - From Admission This is a 61-year-old male with a PMH of HTN, Chronic Back Pain, Tobacco Abuse and h/o Cocaine Abuse who was brought to the ER by EMS after being found naked in his yard screaming for help. Pt unable to provide much history. On arrival to ER was significantly agitated requiring multiple doses of Haldol, Psych Screen attempted on few occasions however unable to obtain due to sedation. Noted to have prescription bottles on Oxycodone, Xanax and Nortriptyline. Urine Drug Screen positive for Benzo. Thought to have Drug-Induced Psychotic Disorder and evaluated by basin tender, however not felt to be appropriate admit for Psych, therefore we were asked to admit. Labs essentially unremarkable except for Platelets 122, previously 125 on 05/07/16. Chemistry unremarkable. Trop negative. CT Head w/ no acute findings. CT C-Spine with no fracture or subluxation of cervical spine. CXR with possible early upper lobe consolidation mainly on right. Pt remains confused, incoherent w/ difficulty ambulating. CBC/BMP: 12/27/16 0724 12/27/16 0724 Significant Findings Laboratory Tests Test 12/25/16 12/26/16 12/26/16 12/27/16 13:08 13:13 17:12 07:24 Total Creatine Kinase 914 U/L 948 U/L 670 U/L (39-308) (39-308) (39-308) Creatine Kinase MB 4.0 NG/ML 5.4 NG/ML 11.0 NG/ML (0.5-3.6) (0.5-3.6) (0.5-3.6) Platelet Count 138 TH/MM3 149 TH/MM3 (150-450) (150-450) Monocytes (%) (Auto) 8.7 % (0.0-8.0) 9.5 % (0.0-8.0) Sodium Level 148 MEQ/L (136-145) Potassium Level 3.3 MEQ/L 3.2 MEQ/L (3.5-5.1) (3.5-5.1) Chloride Level 115 MEQ/L 113 MEQ/L (98-107) (98-107) Blood Urea Nitrogen 6 MG/DL (7-18) 6 MG/DL (7-18) Creatinine 0.52 MG/DL 0.46 MG/DL (0.60-1.30) (0.60-1.30) Vitamin B12 Level 1147 PG/ML (193-986) Ammonia 48 MCMOL/L (11-32) Red Blood Count 4.39 MIL/MM3 (4.50-5.90) Random Glucose 110 MG/DL (74-106) PE at Discharge GENERAL: Well-nourished, well-developed middle aged male patient in [facility]. SKIN: Warm and dry. No rash. HEENT: Normocephalic. Atraumatic. Pupils equal and round. Mucous membranes pink and moist. NECK: Supple. Trachea midline. CARDIOVASCULAR: Regular rate and rhythm. S1, S2 noted. No murmur appreciated. RESPIRATORY: No accessory muscle use. Clear to auscultation. Breath sounds equal bilaterally. GASTROINTESTINAL: Abdomen soft, non-tender, nondistended. Normoactive bowel sounds x4. MUSCULOSKELETAL: No obvious deformities. Extremities without clubbing, cyanosis , or edema. NEUROLOGICAL: Awake and alert, oriented x3. No obvious cranial nerve deficits. Motor grossly within normal limits. Moving all extremities spontaneously. Normal speech. PSYCHIATRIC: Calm, cooperative, appropriate mood; insight and judgment fair to normal. Pt update on day of discharge The patient is doing well today. He has no acute complaints. Discussed over the phone with the patient's sister Annika with patient's permission. Per patient's sister, the patient is back to his mental status baseline. Patient states she's been ambulating. He states he been eating without any difficulties. He is oriented to person, place, time. He does admit to taking oxycodone and Xanax at home, but he reports compliance with that. He states he has a box of fentanyl patch that time, but does not take that because he is afraid because it is too strong. He denies any alcohol or substance use. He states he doesn't trust his neurologist, Dr. Nguyen because he prescribes strong medication, would like to follow-up with Dr. Saeed if possible. Patient verbalizes understanding of the importance of outpatient follow-up. Discussed with RN, will attempt to obtain medication list from PCP today prior to DC if possible. Hospital Course 61-year-old male with a PMH of HTN, Chronic Back Pain, Tobacco Abuse and h/o Cocaine Abuse who was brought to the ER by EMS after being found naked on his porch. Pt was unable to provide much history. On arrival to ER was significantly agitated requiring multiple doses of Haldol. Noted to have prescription bottles on Oxycodone, Xanax and Nortriptyline. Urine Drug Screen positive for Benzo. Psychosis/Delirium: Unclear etiology, possibly Drug-Induced, suspect overuse of Benzos, patient had Xanax 1mg #120 tablets filled on 12/16 however [facility] only counted 47 tablets left in the bottle. Also polypharmacy with Oxycodone, fentanyl patch, and Nortriptyline. UDS positive only for Benzo. CT Head/C- Spine w/ no acute findings. Labs essentially unremarkable. [facility] Prescription Drug Monitoring Website shows the patient last filled Oxycodone 20mg q6h, Alprazolam 1mg q6h on 12/16/[address] Henson. He also sees Dr. Nguyen and last received Percocet 10mg q6h and Fentanyl 75mcg patch on 11/19/16. -Psychiatry evaluated, appreciate assistance, started on seroquel 50mg bid. -Neurology was consulted, order brain MRI which showed punctate focus of signal abnormality in the left parietal cortex, neurology recommended follow-up MRI in 7-10 days -Neurology also ordered urine porphyria, pending -EEG unremarkable -Blood cultures with NGTD -Patient counseled regarding controlled substances Chronic pain: Resumed oxycodone on 10 mg when necessary per pain scale. Hold off on oxycodone 20 mg scheduled and fentanyl patch. Follow-up with PCP and pain management with possible polypharmacy and medication effect as above. Mild Rhabdomyolysis: CPK 948 -> 670 with IVF, trending down, improved. HTN: Not optimally controlled. Continue home lisinopril. Started on amlodipine. Follow-up with PCP Dr. Henson. Tobacco Abuse: patient smokes 2PPD. Nicotine patch. Cessation counseling. Pt Condition on Discharge: Stable Discharge Disposition: Discharge Home Discharge Time: > 30 minutes Discharge Instructions DIET: Follow Instructions for: Heart Healthy Diet Activities you can perform: Regular-No Restrictions Follow up Referrals: Neurology - 10 Days with Craig Saeed PhD, MD PCP Follow-up - 1 Week with Erika Henson MD New Orders: MRI Brain W/O Contrast - 1 Week New Medications: Amlodipine (Norvasc) 10 Mg Tab 10 MG PO DAILY Blood Pressure Management #30 TAB Quetiapine (Quetiapine) 25 Mg Tab 50 MG PO BID Agitation Days 7 TAB Continued Medications: Alprazolam (Xanax) 1 Mg Tab 1 MG PO TID PRN ANXIETY Ref 0 TAB Atorvastatin (Atorvastatin) 10 Mg Tab 10 MG PO HS Cholesterol Management #30 Ref 0 TAB Cholecalciferol (Vitamin D3) 5,000 Unit Cap 5000 UNITS PO DAILY Nutritional Supplement #1 Ref 0 BOTTLE Cyanocobalamin (Vitamin B-12) 50 Mcg Tab 1 TAB PO DAILY Nutritional Supplement #1 Ref 0 BOTTLE Fluticasone Propionate (Nasal) (Eq Allergy Relief) 50 Mcg/Act Spr 1 SPRAY NA BID Folic Acid (Folate) 1 Mg Tab 1 MG PO DAILY Nutritional Supplement Ref 0 TAB Lisinopril (Lisinopril) 20 Mg Tab 40 MG PO DAILY #30 Ref 0 TAB Magnesium Oxide (Magnesium Oxide) 400 Mg Tab 400 MG PO BID Nutritional Supplement Ref 0 TAB Multiple Vitamin (Multi Vitamin) 1 Tab Tab 1 TAB PO DAILY TAB Niacin ER (Slo-Niacin) 500 Mg Tab 500 MG PO BID Cholesterol Management #60 Ref 0 TAB Omeprazole (Omeprazole) 20 Mg Tab 20 MG PO DAILY #30 Ref 0 TAB Oxycodone-Acetaminophen (Percocet) 10-325 mg Tab 1 TAB PO Q4H PRN PAIN #60 Ref 0 TAB Discontinued Medications: Fentanyl Patch 72 HR (Fentanyl Patch 72 HR) 75 Mcg/Hr Patch 75 MCG T-DERMAL Q72H Remove old patch when new one placed. Pain Management #10 Ref 0 PATCH Oxycodone ER (Oxycontin) 20 Mg Tab 20 MG PO Q8HR Pain Management #50 Ref 0 TAB Rivaroxaban (Xarelto) 10 Mg Tab 10 MG PO DAILY Blood Clot Prevention #14 Ref 0 TAB Jerome Mcqueen December 28, 2016 09:34
[2016-12-28] MEDS: SODIUM CHLORIDE 0.9% FLUSH 10 ML FLUSH IV FLUSH SCH (09:35)
[2016-12-28] MEDS: REMOVE OLD PATCH T-DERMAL SCH (09:36)
[2016-12-28] MEDS: QUEtiapine FUMARATE 25 MG TAB PO SCH (09:36)
[2016-12-28] MEDS: LISINOPRIL 20 MG TAB PO SCH (09:37)
[2016-12-28] MEDS: NICOTINE 21 MG/24 HR PATCH T-DERMAL SCH (09:40)
[2016-12-30 15:07] LABS: HEPATCARBOXYLPORPHYRINS 2 nmol/24 h (<=9); HEXACARBOXYL PORPHYRINS <1 nmol/24 h (<=8); PENTACARBOXYL PORPHYRINS 2 nmol/24 h (<=10); PORPHOBILINOGEN 0.7 mcmol/24 h (<=2.2); PORPHYRINS QN COLLECTION DUR 24 h (()); PORPHYRINS QN UR TOTAL VOLUME 3650 mL (())
== END 2016-12-28 13:26 | disposition home or self-care (01) ==
LOC: NEPE 20:49 → NEDA 12-24 19:33 → NEPGCP 12-24 22:49
PROVIDERS: ADMIT Internal Medicine; ATTEND Internal Medicine
DX: F29 Unspecified psychosis not due to a substance or known physiological condition (principal); J18.9 Pneumonia, unspecified organism; I10 Essential (primary) hypertension; F05 Delirium due to known physiological condition; R90.89 Other abnormal findings on diagnostic imaging of central nervous system; D69.6 Thrombocytopenia, unspecified; F13.239 Sedative, hypnotic or anxiolytic dependence with withdrawal, unspecified; M25.552 Pain in left hip; M54.5 Low back pain; G89.29 Other chronic pain; M62.82 Rhabdomyolysis; S09.90XA Unspecified injury of head, initial encounter; F17.210 Nicotine dependence, cigarettes, uncomplicated; Z79.899 Other long term (current) drug therapy; Z86.73 Personal history of transient ischemic attack (TIA), and cerebral infarction without residual deficits; Z87.442 Personal history of urinary calculi; Z91.81 History of falling; Z96.642 Presence of left artificial hip joint
CPT/HCPCS: 70450; 70553; 71010; 72125; 80048; 80053; 80307; 81001; 82140; 82550; 82552; 82607; 83735; 84110; 84120; 84443; 84484; 85007; 85025; 85027; 85610; 85730; 86038; 87040; 93005; 94664; 95819; 96361; 96372; 96374; 96375; 97162; 99285; A9579; G0378; G8987; G8988; J0456; J0696; J1630; J2060; J2250; J3480; J7030; J7050

== ENCOUNTER 2017-01-01 23:51 | Emergency (ER) | payer OTHER ==
[~2017-01-01 23:51] MED LIST changes: +AMLO10 PO; -FENT75DI T-DERMAL; -OXYC20TA17 PO; +QUET1TAB7 PO; -WALKER WHEELS/F1 MIS; -XARE10TA PO
--- NOTE | 2017-01-02 00:17 | PD ---
HPI Chief Complaint: BA Time Seen by Provider: 00:15 Travel History International Travel<30 days: No Contact w/Intl Traveler<30days: No Traveled to known affect area: No History of Present Illness HPI 61-year-old white male presents to emergency department under [place] act by PD for psychological evaluation. The patient was just discharged home within the past week for a similar admission. The patient had called the police 3 times earlier today to report people within his home. Please responded and there was no evidence of any intruders. The patient is having hallucinations that people are following him and entering his home. These have been fixed delusions for this patient. Each time police had come out he responded with similar statements. During his admission last week he had CAT scans of the brain and MRI. He was evaluated by medicine, neurology as well as psychiatry. PFSH Past Medical History Arthritis: Yes Anxiety: No Depression: No Cancer: No Cardiovascular Problems: Yes Chemotherapy: No Cerebrovascular Accident: Yes Diabetes: No Endocrine: No Genitourinary: Yes Hepatitis: Yes Hiatal Hernia: No Hypertension: Yes Immune Disorder: No Kidney Stones: Yes (LITHOTRIPSY) Musculoskeletal: Yes (INJECTIONS IN BACK FOR ARTHRITIS IN PAIN) Neurologic: Yes (L LEG PAIN AND NUMBNESS) Psychiatric: No Reproductive: No Respiratory: No (SINUS PROBLEMS) Radiation Therapy: No Sickle Cell Disease: No Thyroid Disease: No Past Surgical History AICD: No Body Medical Devices: MYESHA IN L FEMUR, L HIP, NEEDLE IN SPINE Joint Replacement: Yes (L HIP) Pacemaker: No Other Surgery: Yes Social History Alcohol Use: No (QUIT 18 YRS AGO PER PT) Tobacco Use: Yes (1 PPD) Substance Use: Yes Allergies-Medications (Allergen,Severity, Reaction): Coded Allergies: *MDRO Multi-Drug Resistant Organism (Verified Adverse Reaction, Unknown, 08/06/16) 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 - 08/05/2016 Reported Meds & Prescriptions Reported Meds & Active Scripts Active Norvasc (Amlodipine Besylate) 10 Mg Tab 10 Mg PO DAILY Quetiapine (Quetiapine Fumarate) 25 Mg Tab 50 Mg PO BID 7 Days Percocet (Oxycodone-Acetaminophen) 10-325 mg Tab 1 Tab PO Q4H PRN Reported Omeprazole 20 Mg Tab 20 Mg PO DAILY Eq Allergy Relief (Fluticasone Propionate (Nasal)) 50 Mcg/Act Spr 1 [place] NA BID Atorvastatin (Atorvastatin Calcium) 10 Mg Tab 10 Mg PO HS Folate (Folic Acid) 1 Mg Tab 1 Mg PO DAILY Vitamin D3 (Cholecalciferol) 5,000 Unit Cap 5,000 Units PO DAILY Slo-Niacin (Niacin) 500 Mg Tab 500 Mg PO BID Magnesium Oxide 400 Mg Tab 400 Mg PO BID Vitamin B-12 (Cyanocobalamin) 50 Mcg Tab 1 Tab PO DAILY Multi Vitamin (Multiple Vitamin) 1 Tab Tab 1 Tab PO DAILY Lisinopril 20 Mg Tab 40 Mg PO DAILY Xanax (Alprazolam) 1 Mg Tab 1 Mg PO TID PRN Physical Exam Narrative GENERAL: Well-nourished, well-developed patient. SKIN: Warm and dry. HEAD: Normocephalic and atraumatic. EYES: No scleral icterus. No injection or drainage. ENT: No nasal drainage noted. Mucous membranes pink. Airway patent. NECK: Supple, trachea midline. Moves head freely without obvious discomfort. CARDIOVASCULAR: Regular rate and rhythm without murmurs, gallops, or rubs. RESPIRATORY: Breath sounds equal bilaterally. No accessory muscle use. GASTROINTESTINAL: Abdomen soft, non-tender, nondistended. EXTREMITIES: No cyanosis or edema. BACK: Nontender without obvious deformity. No CVA tenderness. NEURO: Patient is alert and oriented. no sensorimotor deficits. Nonfocal. Normal speech. PSYCH: Patient has fixed delusions of people entering his home. No suicidal or homicidal ideation. Data Data Last Documented VS Vital Signs Date Time Temp Pulse Resp B/P Pulse Ox O2 Delivery O2 Flow Rate FiO2 01/02/17 00:19 97.9 90 18 138/78 99 Orders Complete Blood Count With Diff (01/02/17 00:31) Comprehensive Metabolic Panel (01/02/17 00:31) Psych Screen (01/02/17 00:31) Drug Screen, Random Urine (01/02/17 00:31) Alcohol (Ethanol) (01/02/17 00:31) Labs Laboratory Tests Test 01/02/17 00:50 White Blood Count 10.4 TH/MM3 Red Blood Count 4.18 MIL/MM3 Hemoglobin 13.4 GM/DL Hematocrit 40.1 % Mean Corpuscular Volume 95.8 FL Mean Corpuscular Hemoglobin 31.9 PG Mean Corpuscular Hemoglobin 33.3 % Concent Red Cell Distribution Width 14.1 % Platelet Count 169 TH/MM3 Mean Platelet Volume 10.4 FL Neutrophils (%) (Auto) 78.8 % Lymphocytes (%) (Auto) 13.9 % Monocytes (%) (Auto) 6.7 % Eosinophils (%) (Auto) 0.5 % Basophils (%) (Auto) 0.1 % Neutrophils # (Auto) 8.2 TH/MM3 Lymphocytes # (Auto) 1.4 TH/MM3 Monocytes # (Auto) 0.7 TH/MM3 Eosinophils # (Auto) 0.1 TH/MM3 Basophils # (Auto) 0.0 TH/MM3 CBC Comment DIFF FINAL Differential Comment Sodium Level 144 MEQ/L Potassium Level 3.4 MEQ/L Chloride Level 105 MEQ/L Carbon Dioxide Level 27.5 MEQ/L Anion Gap 12 MEQ/L Blood Urea Nitrogen 15 MG/DL Creatinine 0.66 MG/DL Estimat Glomerular Filtration 123 ML/MIN Rate Random Glucose 80 MG/DL Calcium Level 9.3 MG/DL Total Bilirubin 0.7 MG/DL Aspartate Amino Transf 33 U/L (AST/SGOT) Alanine Aminotransferase 27 U/L (ALT/SGPT) Alkaline Phosphatase 78 U/L Total Protein 7.5 GM/DL Albumin 4.0 GM/DL Urine Opiates Screen NEG Urine Barbiturates Screen NEG Urine Amphetamines Screen NEG Urine Benzodiazepines Screen POS Urine Cocaine Screen POS Urine Cannabinoids Screen POS Ethyl Alcohol Level LESS THAN 3 MG/DL MDM Medical Decision Making Medical Screen Exam Complete: Yes Emergency Medical Condition: Yes Medical Record Reviewed: Yes Interpretation(s) Laboratory Tests Test 01/02/17 00:50 White Blood Count 10.4 TH/MM3 Red Blood Count 4.18 MIL/MM3 Hemoglobin 13.4 GM/DL Hematocrit 40.1 % Mean Corpuscular Volume 95.8 FL Mean Corpuscular Hemoglobin 31.9 PG Mean Corpuscular Hemoglobin 33.3 % Concent Red Cell Distribution Width 14.1 % Platelet Count 169 TH/MM3 Mean Platelet Volume 10.4 FL Neutrophils (%) (Auto) 78.8 % Lymphocytes (%) (Auto) 13.9 % Monocytes (%) (Auto) 6.7 % Eosinophils (%) (Auto) 0.5 % Basophils (%) (Auto) 0.1 % Neutrophils # (Auto) 8.2 TH/MM3 Lymphocytes # (Auto) 1.4 TH/MM3 Monocytes # (Auto) 0.7 TH/MM3 Eosinophils # (Auto) 0.1 TH/MM3 Basophils # (Auto) 0.0 TH/MM3 CBC Comment DIFF FINAL Differential Comment Sodium Level 144 MEQ/L Potassium Level 3.4 MEQ/L Chloride Level 105 MEQ/L Carbon Dioxide Level 27.5 MEQ/L Anion Gap 12 MEQ/L Blood Urea Nitrogen 15 MG/DL Creatinine 0.66 MG/DL Estimat Glomerular Filtration 123 ML/MIN Rate Random Glucose 80 MG/DL Calcium Level 9.3 MG/DL Total Bilirubin 0.7 MG/DL Aspartate Amino Transf 33 U/L (AST/SGOT) Alanine Aminotransferase 27 U/L (ALT/SGPT) Alkaline Phosphatase 78 U/L Total Protein 7.5 GM/DL Albumin 4.0 GM/DL Urine Opiates Screen NEG Urine Barbiturates Screen NEG Urine Amphetamines Screen NEG Urine Benzodiazepines Screen POS Urine Cocaine Screen POS Urine Cannabinoids Screen POS Ethyl Alcohol Level LESS THAN 3 MG/DL CBC & BMP Diagram 01/02/17 00:50 Differential Diagnosis MDM: High Differential diagnoses: Schizophrenia, schizoaffective disorder, bipolar, anxiety, depression, adjustment reaction, mood disorder NOS, ODD, depressive disorder NOS, dementia, dementia with agitation, psychosis NOS, substance induced mood disorder, intermittent explosive disorder, Asperger syndrome, infection,electrolyte abnormality, malingering. Narrative Course Mental health screening discussed with the patient. Psychiatric screen ordered. The patient has been medically cleared. This is drug induced psychotic disorder with delusions Diagnosis Primary Impression: Drug-induced psychotic disorder with delusions Condition: Jacob Calvert January 02, 2017 00:17
[2017-01-02 00:19] VITALS: BP 138/78; PULSE 90; RESP 18; TEMP 97.9; O2SAT 99
[2017-01-02 02:27] LABS: AUTOMATED NEUTROPHIL # 8.2 TH/MM3 (1.8-7.7); BASOPHIL % 0.1 % (0.0-2.0); EOSINOPHIL # 0.1 TH/MM3 (0-0.4); EOSINOPHIL % 0.5 % (0.0-4.0); HEMATOCRIT 40.1 % (39.0-51.0); HEMO FLAGS DIFF FINAL; LYMPH % 13.9 % (9.0-44.0); LYMPHOCYTE # 1.4 TH/MM3 (1.0-4.8); MEAN CELL VOLUME 95.8 FL (80.0-100.0); MEAN CORPUSCULAR HEMOGLOBIN 31.9 PG (27.0-34.0); MEAN CORPUSCULAR HGB CONC 33.3 % (32.0-36.0); MONO % 6.7 % (0.0-8.0); NEUT % 78.8 % (16.0-70.0); PLATELET COUNT 169 TH/MM3 (150-450); RED BLOOD COUNT 4.18 MIL/MM3 (4.50-5.90); RED CELL DISTRIBUTION WIDTH 14.1 % (11.6-17.2); WHITE BLOOD COUNT 10.4 TH/MM3 (4.0-11.0)
[2017-01-02 02:28] LABS: ALKALINE PHOSPHATASE 78 U/L (45-117); ALT (GPT) 27 U/L (12-78); TOTAL BILIRUBIN ADULT 0.7 MG/DL (0.2-1.0)
[2017-01-02 02:30] LABS: BLOOD UREA NITROGEN 15 MG/DL (7-18)
[2017-01-02 02:31] LABS: ANION GAP 12 MEQ/L (5-15); AST (GOT) 33 U/L (15-37); BICARBONATE 27.5 MEQ/L (21.0-32.0); CHLORIDE 105 MEQ/L (98-107); GLOMERULAR FILTRATION RATE 123 ML/MIN (>89); POTASSIUM 3.4 MEQ/L (3.5-5.1); SODIUM (NA) 144 MEQ/L (136-145)
[2017-01-02 02:50] LABS: AMPHETAMINE, URINE NEG (NEG); BARBITURATES, URINE NEG (NEG); COCAINE, URINE POS (NEG)
[2017-01-02 05:00] VITALS: BP 112/72; PULSE 67; RESP 18; O2SAT 95
[2017-01-02 11:00] VITALS: BP 104/62; PULSE 70; RESP 16; O2SAT 98
== END 2017-01-02 13:54 ==
LOC: NEPD 23:51 → NEPJ 01-02 13:54
DX: F19.950 Other psychoactive substance use, unspecified with psychoactive substance-induced psychotic disorder with delusions (principal); I10 Essential (primary) hypertension; F17.210 Nicotine dependence, cigarettes, uncomplicated; F14.10 Cocaine abuse, uncomplicated; F12.10 Cannabis abuse, uncomplicated
CPT/HCPCS: 80053; 80307; 85025; 99285

== ENCOUNTER 2018-05-24 12:37 | Observation (INO) ==
[2018-05-24] MEDS ORDERED: Morphine Inj 4 MG/ML Vial IV.PUSH ONE ×2 (13:36→15:31)
--- NOTE | 2018-05-24 13:43 | ED ---
HPI General Chief Complaint: Neck Pain/Injury Stated Complaint: Neck Complaint Time Seen by Provider: 05/24/18 13:19 Source: patient Mode of arrival: ambulatory History of Present Illness HPI Narrative: Patient is a previously healthy 62-year-old male who presents with of neck pain with swelling to the right occiput. He noticed pain upon waking approximately 2 days ago and states that it has worsened with swelling. He is now having difficulty turning his neck contact secondary to the pain and mass. No fever nor chills. He does not recall any recent trauma. No sore throat or change in voice. MD complaint: neck pain Place: home Radiation: occiput Severity: moderate Quality: stabbing Duration: constant Relieving factors: none Exacerbating factors: movement of neck Context: unknown Associated symptoms: none Treatments prior to arrival: none Related Data Home Medications Medication Instructions Recorded Confirmed alprazolam 05/24/18 05/24/18 lisinopril 40 mg PO DAILY 05/24/18 05/24/18 oxycodone 05/24/18 05/24/18 Allergies Allergy/AdvReac Type Severity Reaction Status Date / Time *MDRO Multi-Drug Resistant AdvReac Unknown Uncoded 08/06/16 09:43 Organism Review of Systems ROS: all other systems reviewed are negative COUNT INCLUDES [facility] Medical History Medical History Hip replacement planned (Acute) Social History Social History Substance History: No History of Abuse Second Hand Smoke Exposure: No Smoking Status: Never smoker How Often Do You Have a Drink Containing Alcohol: Never Recent Travel in [facility] within the Last 8 Weeks: No Recent Out of Country Travel within the Last 8 Weeks: No Exam Narrative Exam Narrative: GENERAL: Well-appearing male in no acute distress SKIN: Focused skin assessment warm/dry. No rashes. HEAD: Atraumatic. Normocephalic. EYES: Pupils equal and round. No scleral icterus. No injection or drainage. ENT: No nasal bleeding or discharge. Mucous membranes pink and dry. NECK: Trachea midline. No JVD. Swelling to back of neck with large area of pain , induration, erythema. Area appears to have a wound the patient does not recall this. CARDIOVASCULAR: Regular rate and rhythm. No murmur appreciated. RESPIRATORY: No accessory muscle use. Clear to auscultation. Breath sounds equal bilaterally. GASTROINTESTINAL: Abdomen soft, non-tender, nondistended. Hepatic and splenic margins not palpable. MUSCULOSKELETAL: No obvious deformities. No clubbing. No cyanosis. No edema. NEUROLOGICAL: Awake and alert. No obvious cranial nerve deficits. Motor grossly within normal limits. Normal speech. PSYCHIATRIC: Appropriate mood and affect; insight and judgment normal. Course Initial Documented Vital Signs Temperature 99 F 05/24/18 13:02 Pulse Rate 91 H 05/24/18 13:02 Respiratory Rate 18 05/24/18 13:02 Blood Pressure 105/61 05/24/18 13:02 Pulse Oximetry 97 05/24/18 13:02 Last Documented Vital Signs Temperature 99 F 05/24/18 13:02 Pulse Rate 91 H 05/24/18 13:02 Respiratory Rate 18 05/24/18 18:24 Blood Pressure 105/61 05/24/18 13:02 Pulse Oximetry 97 05/24/18 13:02 Medical Decision Making [facility] Narrative Medical decision making narrative: Patient is a 62-year-old male, previously healthy, who presents with complaint of mass to the right occiput part of his neck. He is hemodynamically stable and afebrile. Labs are unremarkable. Imaging shows myositis. We have sent blood cultures and given antibiotics in case there is an infection. He has been admitted to Dr. Gunn, hospitalist on- call, for further evaluation and management. Medical Screen Exam Complete: Yes Emergency Medical Condition: Yes Differential Diagnosis Differential Diagnosis: Differential diagnosis includes but is not limited to superficial abscess, intramuscular abscess, cellulitis, torticollis. Medical Records Medical records reviewed: Yes I reviewed the patient's medical records. Lab Data Lab results reviewed: Yes I reviewed the patient's lab results. Result diagrams: 05/24/18 13:50 05/24/18 13:50 Lab Results 05/24/18 05/24/18 05/24/18 Range/Units 13:50 13:50 13:50 WBC 7.5 (4.0-11.0) th/mm3 RBC 3.91 L (4.50-5.90) mil/mm3 Hgb 13.4 (13.0-17.0) gm/dL Hct 39.6 (39.0-51.0) % MCV 101.3 H (80.0-100.0) fL MCH 34.3 H (27.0-34.0) pg MCHC 33.8 (32.0-36.0) % RDW 15.2 (11.6-17.2) % Plt Count 113 L (150-450) th/mm3 MPV 10.3 (7.0-11.0) fL Neut % (Auto) 81.5 H (16.0-70.0) % Lymph % (Auto) 8.8 L (9.0-44.0) % [place] % (Auto) 8.3 H (0.0-8.0) % Eos % (Auto) 1.0 (0.0-4.0) % Baso % (Auto) 0.4 (0.0-2.0) % Neut # (Auto) 6.1 (1.8-7.7) th/mm3 Lymph # (Auto) 0.7 L (1.0-4.8) th/mm3 [place] # (Auto) 0.6 (0.0-0.9) th/mm3 Eos # (Auto) 0.1 (0.0-0.4) th/mm3 Baso # (Auto) 0.0 (0.0-0.2) th/mm3 WBC Differential . Differential Comment Auto diff final Sodium 142 (136-145) meq/L Potassium 3.6 (3.5-5.1) meq/L Chloride 104 (98-107) meq/L Carbon Dioxide 32.0 (21.0-32.0) meq/L Anion Gap 6 (5-15) meq/L BUN 20 H (7-18) mg/dL Creatinine 0.73 (0.60-1.30) mg/dL Estimated GFR Greater than 89 (>89) mL/min Random Glucose 120 H (74-106) mg/dL Lactic Acid 1.1 (0.4-2.0) mmol/L Calcium 8.3 L (8.5-10.1) mg/dL Imaging Data Attestation: I personally reviewed and interpreted this imaging study as follows : Radiologist's impression: Soft Tissue Neck CT 05/24/18 13:36 CONCLUSION: 1. Generalized inflammatory process involving the right perivertebral space. There is enlargement and decreased density of the muscles characteristic of myositis. There is no evidence of discrete mass, abnormal fluid collections or lymphadenopathy. 2. Soft tissue structures of the neck are otherwise unremarkable. There are no acute bony abnormalities. Discharge Plan Discharge Disposition Patient Disposition: 30 Still Patient Discharge Condition Condition: Stable Discharge Details Diagnosis: Myositis Physicians Team ED Provider: Ramona España Primary Care Provider: UNKNOWN, Attending Provider: Vinh Gunn Discharge Interventions Interventions: Vital Signs Last Done: 05/24/18 13:02 Status ED Status: Admitted Observation Patient
[2018-05-24] MEDS ORDERED: Sod Chloride 0.9% Inj 1,000 ML IV.SIG SCH (13:45)
[2018-05-24 14:14] LABS: Baso % (Auto) 0.4 % (0.0-2.0); Eos # (Auto) 0.1 th/mm3 (0.0-0.4); Hematocrit 39.6 % (39.0-51.0); Hemoglobin 13.4 gm/dL (13.0-17.0); Lymph # (Auto) 0.7 th/mm3 (1.0-4.8); Lymph % (Auto) 8.8 % (9.0-44.0); Mean Corpuscular HGB Conc 33.8 % (32.0-36.0); Mean Corpuscular Hemoglobin 34.3 pg (27.0-34.0); Mean Corpuscular Volume 101.3 fL (80.0-100.0); Mean Platelet Volume 10.3 fL (7.0-11.0); Mono # (Auto) 0.6 th/mm3 (0.0-0.9); Mono % (Auto) 8.3 % (0.0-8.0); Neut # (Auto) 6.1 th/mm3 (1.8-7.7); Neut % (Auto) 81.5 % (16.0-70.0); Platelet Count 113 th/mm3 (150-450); Red Blood Count 3.91 mil/mm3 (4.50-5.90); Red Cell Distribution Width 15.2 % (11.6-17.2); White Blood Count 7.5 th/mm3 (4.0-11.0)
[2018-05-24 14:28] LABS: Anion Gap 6 meq/L (5-15); Blood Urea Nitrogen 20 mg/dL (7-18); Calcium 8.3 mg/dL (8.5-10.1); Chloride 104 meq/L (98-107); Glomerular Filtration Rate Greater Than 89 mL/min (>89); Glucose,Random 120 mg/dL (74-106); Potassium 3.6 meq/L (3.5-5.1); Sodium 142 meq/L (136-145)
--- NOTE | 2018-05-24 16:29 | CT ---
EXAM DATE: 05/24/2018 2:53 PM EDT AGE/SEX: 62 years / Male INDICATIONS: Swelling and lesion to right posterior side of neck. CLINICAL DATA: This is the patient's initial encounter. Patient reports that signs and symptoms have been present for 2 days and indicates a pain score of 8/10. MEDICAL/SURGICAL HISTORY: Hypertension. None. RADIATION DOSE: 16.75 CTDI (mGy) COMPARISON: No prior exams available for comparison. TECHNIQUE: Helical acquisition was performed using a multirow detector CT scanner during the adminis tration of 60 ml Omnipaque 350 (iohexol) nonionic water-soluble contrast as a single exam dose. Usi ng automated exposure control and adjustment of the mA and/or kV according to patient size, radiation dose was kept as low as reasonably achievable to obtain optimal diagnostic quality images. DICOM fo rmat image data is available electronically for review and comparison. FINDINGS: Nasopharynx: The nasopharyngeal airway has a normal configuration. No mucosal thickening or mass is seen. Oropharynx: The intrinsic muscles of the tongue are symmetric. The tonsillar pillars are intact. T he prevertebral soft tissues are not thickened. Larynx: The supraglottic, glottic, and infraglottic structures are intact. Parapharyngeal: The parapharyngeal space is intact. Salivary Glands: The parotid and submandibular glands are intact. Lymph Nodes: No enlarged or necrotic-appearing nodes. Thyroid: Homogeneous enhancement without evidence of nodule. Bones: Unremarkable. Soft tissues: Significant edema with suspected mild ascites is identified in the right perivertebral space. Paraspinal muscles are all thickened and inflamed. There is no discrete fluid collections. The inflammatory changes extend to the base of the neck and involve the right supraclavicular region. Th ere is no evidence of discrete mass or significant lymphadenopathy. CONCLUSION: 1. Generalized inflammatory process involving the right perivertebral space. There is enlargement an d decreased density of the muscles characteristic of myositis. There is no evidence of discrete mass, abnormal fluid collections or lymphadenopathy. 2. Soft tissue structures of the neck are otherwise unremarkable. There are no acute bony abnormalit ies. Electronically signed by: Tima Hobson MD 05/24/2018 4:27 PM EDT
[2018-05-24] MEDS ORDERED: Vancomycin Inj 1 GM/200 ML PIGGYBACK IV.SIG ONE (17:01)
[2018-05-24] MEDS ORDERED: HYDROmorphone PF Inj 2 MG/ML Vial IV.PUSH ONE (17:09)
[2018-05-24] MEDS ORDERED: Ketorolac Inj 30 MG/ML (IVP) Vial IV.PUSH ONE (17:47)
[2018-05-24] MEDS ORDERED: Vancomycin Inj 1,000 MG in Sodium Chlor 0.9% Inj 250 ML IV.SIG ONE ×2 (18:00→22:00)
[2018-05-24] MEDS ORDERED: Naloxone Inj 0.4 MG/ML Vial IV.PUSH PRN ×2 (18:29→18:39)
[2018-05-24] MEDS ORDERED: Bisacodyl 10 MG Supp RECTAL PRN (18:29)
[2018-05-24] MEDS ORDERED: Vancomycin Consult Pharmacy 1 EACH OTHER SCH (19:15)
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
[2018-05-24] MEDS ORDERED: predniSONE 20 MG Tablet PO SCH (21:00)
[2018-05-24 21:55] LABS: CKMB Percent 0.2 % (0.0-4.0); Creatine Kinase MB 20.9 ng/mL (0.5-3.6)
[2018-05-24] MEDS: Senna/Docusate Sodium 8.6/50 MG Tablet PO SCH (22:48)
--- NOTE | 2018-05-24 23:35 | XR ---
EXAM DATE: 05/24/2018 12:00 AM EDT AGE/SEX: 62 years / Male INDICATIONS: Posterior right hip pain for several days. CLINICAL DATA: This is the patient's initial encounter. Patient reports that signs and symptoms have been present for 3 days and indicates a pain score of 4/10. MEDICAL/SURGICAL HISTORY: Hypertension. . Left hip total [place]. [place] [facility] [place]AP&LAT 2/3VWS[place] W AP PELVIS, 08/11/2016. . FINDINGS: 3 views of the right hip and pelvis. Left total hip prosthesis is in place. There is evidence of a tr act from prior surgical hardware in the right femoral neck. Small right hip osteophytes. No evidence of fracture. Bone alignment within normal limits. CONCLUSION: 1. Evidence of prior hip screw on the right. 2. No evidence fracture. 3. Mild osteoarthritic findings of the right hip. Electronically signed by: Jones Ramirez MD 05/24/2018 11:33 PM EDT
[2018-05-24] MEDS: HYDROmorphone PF Inj 2 MG/ML Vial IV.PUSH PRN (23:49)
[2018-05-25] MEDS: HYDROmorphone PF Inj 2 MG/ML Vial IV.PUSH PRN ×5 (04:47→20:05)
[2018-05-25] MEDS: Piperacil/Tazo 3.375 GM Premix 50 ML IV.SIG SCH ×4 (05:12→23:09)
[2018-05-25 05:32] LABS: Baso % (Auto) 0.1 % (0.0-2.0); Eos % (Auto) 0.4 % (0.0-4.0); Hematocrit 38.7 % (39.0-51.0); Hemoglobin 13.1 gm/dL (13.0-17.0); Lymph # (Auto) 0.3 th/mm3 (1.0-4.8); Lymph % (Auto) 5.7 % (9.0-44.0); Mean Corpuscular HGB Conc 33.8 % (32.0-36.0); Mean Corpuscular Hemoglobin 34.3 pg (27.0-34.0); Mean Corpuscular Volume 101.5 fL (80.0-100.0); Mono # (Auto) 0.2 th/mm3 (0.0-0.9); Mono % (Auto) 2.9 % (0.0-8.0); Neut # (Auto) 4.9 th/mm3 (1.8-7.7); Neut % (Auto) 90.9 % (16.0-70.0); Platelet Count 105 th/mm3 (150-450); Red Blood Count 3.81 mil/mm3 (4.50-5.90); Red Cell Distribution Width 15.2 % (11.6-17.2); White Blood Count 5.3 th/mm3 (4.0-11.0)
[2018-05-25 06:00] LABS: Albumin 3.1 g/dL (3.4-5.0); Anion Gap 3 meq/L (5-15); Aspartate Aminotransferase 332 U/L (15-37); Blood Urea Nitrogen 16 mg/dL (7-18); Carbon Dioxide 32.1 meq/L (21.0-32.0); Chloride 105 meq/L (98-107); Glomerular Filtration Rate Greater Than 89 mL/min (>89); Glucose,Random 120 mg/dL (74-106); Potassium 4.3 meq/L (3.5-5.1); Sodium 140 meq/L (136-145)
[2018-05-25 06:01] LABS: Alanine Aminotransferase 143 U/L (12-78)
[2018-05-25 06:03] LABS: Alkaline Phosphatase 72 U/L (45-117); Total Protein 6.6 g/dL (6.4-8.2)
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
[2018-05-25] MEDS: Senna/Docusate Sodium 8.6/50 MG Tablet PO SCH ×2 (09:43→20:05)
[2018-05-25] MEDS: Lisinopril 20 MG Tablet PO SCH (09:47)
[2018-05-25] MEDS: Vancomycin Inj 1,000 MG in Sodium Chlor 0.9% Inj 250 ML IV.SIG SCH ×2 (09:48→20:05)
[2018-05-25 11:50] LABS: CKMB Percent 0.2 % (0.0-4.0); Creatine Kinase MB 9.8 ng/mL (0.5-3.6)
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
--- NOTE | 2018-05-25 15:48 | P.CONID ---
History of Present Illness Service: ID Consult date: 05/25/18 Requesting Physician: Don Fuentes Reason for Consult: neck myositis Primary Care Provider: UNKNOWN Family Provider: [facility] Chief Complaint: neck swelling History of Present Illness: 62 yo male woke up with pain and swelling in the R side of the neck and a dark skin lesion Pain worse with movements No fever, no chills blood clx are negative @ 1 day 2/ CT showed generalized inflammatory process involving the right perivertebral space. There is enlargement and decreased density of the muscles characteristic of myositis. There is no evidence of discrete mass, abnormal fluid collections or lymphadenopathy Pt was started on zosyn, vancomycin Review of Systems All other systems reviewed negative except as stated in HPI PMFSH - History History Provided By: Patient - Medical History Medical History: Medical History (Last Reviewed 05/25/18 @ 16:40 by Yaneth Hitchcock MD) Anxiety Back pain Chronic pain History of blood product transfusion Hx deployment Metal bone fixation hardware in place Presence of orthopedic joint implant Hip replacement planned History of spinal fracture Hypertension - Surgical History Surgical History: Surgical History (Last Reviewed 05/25/18 @ 16:40 by Yaneth Hitchcock MD) S/P hip replacement - Family History Family History: Family History (Last Reviewed 05/25/18 @ 16:40 by Yaneth Hitchcock MD) Other Family history non-contributory - Social History I have reviewed the patient's Social History: Yes - Tobacco History Second Hand Smoke Exposure: Yes Tobacco Use In Past 30 Days: Yes Smoking Status: Current some day smoker Tobacco Type: Cigarettes - Alcohol History How Often Do You Have a Drink Containing Alcohol: Never - Substance Use History Substance History: No History of Abuse - Travel History History of Recent Travel: No Recent Travel in the [place] Within the Last 8 Weeks: No Recent Travel Out of the Country Within the Last 8 Weeks: No - Immunization History Tetanus Immunization: Unsure Hx Influenza Vaccine This Season: Yes Medications and Allergies Active Medications: Active Medications Al Hydroxide/Mg Hydroxide (Milk Of Magnpriscila Liq) 30 ml PO Q12H PRN PRN Reason: Mild Constipation Alprazolam (Xanax) 1 mg PO Q6H PRN PRN Reason: ANXIETY AND/OR AGITATION Last Admin: 05/25/18 09:46 Dose: 1 mg Bisacodyl (Dulcolax Supp) 10 mg RECTAL DAILY PRN PRN Reason: SEVERE CONSITIPATION Clonidine HCl (Catapres) 0.1 mg PO Q6H PRN PRN Reason: HYPERTENSION Dexamethasone Sodium Phosphate (Decadron Inj) 4 mg IV.PUSH Q8HR [facility] Last Admin: 05/25/18 14:44 Dose: 4 mg Hydromorphone HCl (Dilaudid Pf Inj) 1 mg IV.PUSH Q3H PRN PRN Reason: BREAKTHROUGH PAIN Last Admin: 05/25/18 14:45 Dose: 1 mg Sodium Chloride (Ns Inj) 1,000 mls @ 0 mls/hr IV.SIG BOLUS [facility] Pharmacy Profile Note (Vancomycin Consult Pharmacy) 0 mls @ 0 mls/hr OTHER UNSCH [facility] Vancomycin HCl 1,000 mg/ (Sodium Chloride) 250 mls @ 250 mls/hr IV.SIG Q12H [facility] Last Infusion: 05/25/18 11:00 Dose: Infused Piperacillin/Tazobactam/Dextrose (Zosyn 3.375 Gm Premix) 50 mls @ 100 mls/hr IV.SIG Q6H [facility] Last Infusion: 05/25/18 10:59 Dose: Infused Lactulose (Lactulose Liq) 30 ml PO DAILY PRN PRN Reason: SEVERE CONSITIPATION Lisinopril (Prinivil) 40 mg PO DAILY [facility] Last Admin: 05/25/18 09:47 Dose: 40 mg Miscellaneous Information ([facility] Ordered Lab Info) 0 each OTHER ONCE ONE Stop: 05/26/18 08:46 Naloxone HCl (Narcan Inj) 0.4 mg IV.PUSH UNSCH PRN PRN Reason: SEE LABEL COMMENTS Nicotine (Habitrol 14 Mg Patch.24 Hr) 1 patch T-DERMAL DAILY [facility] Ondansetron HCl (Zofran Inj) 4 mg IV.PUSH Q6H PRN PRN Reason: NAUSEA OR VOMITING Oxycodone HCl (Roxicodone) 10 mg PO Q4H PRN PRN Reason: PAIN SCALE 6 TO 10 Last Admin: 05/25/18 09:46 Dose: 10 mg Oxycodone HCl (Roxicodone) 5 mg PO Q4H PRN PRN Reason: PAIN SCALE 3 TO 5 Last Admin: 05/25/18 02:27 Dose: 5 mg Patch Removal (Remove Old Patch) 1 each T-DERMAL DAILY [facility] Senna/Docusate Sodium (Margaret-Colace) 1 tab PO BID [facility] Last Admin: 05/25/18 09:43 Dose: 1 tab Sennosides (Senokot) 17.2 mg PO Q12H PRN PRN Reason: Moderate Constipation Silver Sulfadiazine (Silvadene 1% Cream (50 Gm)) 1 applicatio TOPICAL DAILY [facility] Last Admin: 05/25/18 14:44 Dose: 1 applicatio Allergies Allergy/AdvReac Type Severity Reaction Status Date / Time No Known Drug Allergies Allergy NONE Verified 05/24/18 20:19 *MDRO Multi-Drug Resistant AdvReac Unknown NONE Uncoded 05/24/18 20:19 Organism Home Medications Medication Instructions Recorded Confirmed Type alprazolam 1 mg PO QID 05/24/18 05/24/18 History cholecalciferol (vitamin D3) 2,000 unit PO BID 05/24/18 05/24/18 History [Vitamin D3] folic acid 1 mg PO DAILY 05/24/18 05/29/18 History lisinopril 40 mg PO DAILY 05/24/18 05/24/18 History magnesium 500 mg PO BID 05/24/18 05/24/18 History niacin 500 mg PO BID 05/24/18 05/24/18 History oxycodone 20 mg PO QID 05/24/18 05/24/18 History albuterol sulfate 2 puff INHALATION QID 05/29/18 05/29/18 History amoxicillin 4 cap PO ONCE 05/29/18 05/29/18 History atorvastatin 10 mg PO HS 05/29/18 05/29/18 History cholecalciferol (vitamin D3) 1,000 unit PO BID 05/29/18 05/29/18 History cyanocobalamin (vitamin B-12) 1,000 mcg PO DAILY 05/29/18 05/29/18 History fluticasone 1 spray INTRANASAL DAILY 05/29/18 05/29/18 History lisinopril 40 mg PO DAILY 05/29/18 05/29/18 History loratadine 10 mg PO DAILY 05/29/18 05/29/18 History magnesium oxide 400 mg PO BID 05/29/18 05/29/18 History multivitamin 1 tab PO DAILY 05/29/18 05/29/18 History niacin 500 mg PO HS 05/29/18 05/29/18 History omeprazole 20 mg PO DAILY 05/29/18 05/29/18 History pramipexole 0.25 mg PO QPM 05/29/18 05/29/18 History sildenafil 100 mg PO DAILY PRN 05/29/18 05/29/18 History Exam Vital signs: Vital Signs 05/24/18 17:09 05/24/18 18:24 05/24/18 20:00 Temperature 98.4 F Pulse Rate 70 Respiratory Rate 18 18 18 Blood Pressure 106/72 Pulse Oximetry 95 05/25/18 00:00 05/25/18 01:31 05/25/18 04:00 Temperature 99 F 98.6 F 98.6 F Pulse Rate 75 77 68 Respiratory Rate 18 18 Blood Pressure 104/62 109/66 102/67 Pulse Oximetry 95 93 L 93 L 05/25/18 08:00 05/25/18 12:00 Temperature 98.1 F 97.4 F L Pulse Rate 68 74 Respiratory Rate 14 15 Blood Pressure 101/62 101/63 Pulse Oximetry 92 L 92 L Intake & Output 05/24/18 05/25/18 05/25/18 18:59 06:59 18:59 Intake Total 1260 / 1260 300 / 300 Balance 1260 / 1260 300 / 300 Weight 70.307 kg 71.5 kg Intake: IV 300 / 300 300 / 300 Zosyn 3.375 GM Premix 50 ML @ 50 / 50 50 / 50 100 mls/hr IV.SIG Q6H [facility] Rx#: [id number] Vancomycin Inj 1,000 MG In NS 250 / 250 250 / 250 Inj 250 ML @ 250 mls/hr IV.SIG Q12H [facility] Rx#:[id number] Oral 960 / 960 Other: # Voids 4 Date of Last Bowel Movement 05/24/18 Weight On Admission 74.843 kg - Constitutional mild distress, average body habitus - Routine HEENT Exam Head: Present: normocephalic, atraumatic Eye: Present: EOMI, PERRL ENT: Present: mucous membranes moist, oropharynx clear. Absent: dentition normal (poor) - Routine Neck Exam Present: tenderness, swelling Comments: Large black eschar on the R posterior neck wit induration, tenderness and redness + tender full SCM area - Routine Respiratory Exam Present: decreased breath sounds, CTA bilaterally. Absent: accessory muscle use , respiratory distress, rhonchi, wheezes - Routine Cardiovascular Exam Present: RRR, S1, S2. Absent: murmur, gallop, rubs - Routine Abdominal Exam Present: soft, normoactive bowel sounds. Absent: tenderness, distended, organomegaly, mass - Routine Extremities Exam Absent: cyanosis, clubbing, edema - Routine Skin Exam Present: dry, warm, lesions (black eschar dry post R neck). Absent: rash - Routine Neurological Exam Present: alert, oriented X3, CN II-XII intact, moving all extremities, vision grossly intact, hearing grossly intact, normal speech - Routine Psychiatric Exam Present: normal affect, normal thought process, cooperative Results - Labs CBC & Chem 7: 05/28/18 03:39 06/01/18 06:51 Labs: Laboratory Results - last 24 hr 05/24/18 05/25/18 05/25/18 20:06 05:03 05:03 WBC 5.3 RBC 3.81 L Hgb 13.1 Hct 38.7 L MCV 101.5 H MCH 34.3 H MCHC 33.8 RDW 15.2 Plt Count 105 L MPV 10.0 Neut % (Auto) 90.9 H Lymph % (Auto) 5.7 L [place] % (Auto) 2.9 Eos % (Auto) 0.4 Baso % (Auto) 0.1 Neut # (Auto) 4.9 Lymph # (Auto) 0.3 L [place] # (Auto) 0.2 Eos # (Auto) 0.0 Baso # (Auto) 0.0 WBC Differential . Differential Comment Auto diff final Sodium 140 Potassium 4.3 Chloride 105 Carbon Dioxide 32.1 H Anion Gap 3 L BUN 16 Creatinine 0.59 L Estimated GFR Greater than 89 Random Glucose 120 H Calcium 8.0 L Total Bilirubin 0.6 AST 332 H ALT 143 H Alkaline Phosphatase 72 Total Creatine Kinase 8488 H CK-MB (CK-2) 20.9 H CK-MB (CK-2) % 0.2 Total Protein 6.6 Albumin 3.1 L 05/25/18 10:07 WBC RBC Hgb Hct MCV MCH MCHC RDW Plt Count MPV Neut % (Auto) Lymph % (Auto) [place] % (Auto) Eos % (Auto) Baso % (Auto) Neut # (Auto) Lymph # (Auto) [place] # (Auto) Eos # (Auto) Baso # (Auto) WBC Differential Differential Comment Sodium Potassium Chloride Carbon Dioxide Anion Gap BUN Creatinine Estimated GFR Random Glucose Calcium Total Bilirubin AST ALT Alkaline Phosphatase Total Creatine Kinase 5427 H CK-MB (CK-2) 9.8 H CK-MB (CK-2) % 0.2 Total Protein Albumin - Imaging Impressions Hip X-Ray 05/24/18 00:00 CONCLUSION: 1. Evidence of prior hip screw on the right. 2. No evidence fracture. 3. Mild osteoarthritic findings of the right hip. Soft Tissue Neck CT 05/24/18 13:36 CONCLUSION: 1. Generalized inflammatory process involving the right perivertebral space. There is enlargement and decreased density of the muscles characteristic of myositis. There is no evidence of discrete mass, abnormal fluid collections or lymphadenopathy. 2. Soft tissue structures of the neck are otherwise unremarkable. There are no acute bony abnormalities. Assessment and Plan - Plan Myositis neck Skin lesion most cw pressure injury suspect staph infection, SSTI, neck Lymphopenia, thrombocytopenia cont current abx for now MRI of the neck to get more information of the inflammatory/infectious pattern janessa Fuentes
[2018-05-25 22:08] LABS: Bilirubin,Urine Negative (Negative); Clarity,Urine Clear (Clear); Color,Urine Yellow (Yellw/Straw); Glucose,Urine (UA) 150 mg/dL (Negative); Leukocyte Esterase,Urine Negative (Negative); Nitrite,Urine Negative (Negative); Specific Gravity,Urine 1.023 (1.002-1.035)
[2018-05-26] MEDS: HYDROmorphone PF Inj 2 MG/ML Vial IV.PUSH PRN ×3 (00:18→08:46)
[2018-05-26] MEDS: Piperacil/Tazo 3.375 GM Premix 50 ML IV.SIG SCH ×3 (03:16→15:54)
[2018-05-26 05:01] LABS: Baso % (Auto) 0.1 % (0.0-2.0); Hematocrit 36.3 % (39.0-51.0); Hemoglobin 12.1 gm/dL (13.0-17.0); Lymph # (Auto) 0.5 th/mm3 (1.0-4.8); Lymph % (Auto) 7.1 % (9.0-44.0); Mean Corpuscular HGB Conc 33.4 % (32.0-36.0); Mean Corpuscular Hemoglobin 33.8 pg (27.0-34.0); Mean Corpuscular Volume 101.2 fL (80.0-100.0); Mean Platelet Volume 10.5 fL (7.0-11.0); Mono # (Auto) 0.3 th/mm3 (0.0-0.9); Mono % (Auto) 4.1 % (0.0-8.0); Neut # (Auto) 5.8 th/mm3 (1.8-7.7); Neut % (Auto) 88.7 % (16.0-70.0); Platelet Count 111 th/mm3 (150-450); Red Blood Count 3.58 mil/mm3 (4.50-5.90); Red Cell Distribution Width 14.9 % (11.6-17.2); White Blood Count 6.5 th/mm3 (4.0-11.0)
[2018-05-26 05:36] LABS: Free T4 (Free Thyroxine) 0.8 ng/dL (0.76-1.46); Thyroid Stimulating Hormone 0.219 uIU/mL (0.358-3.740)
[2018-05-26] MEDS: Senna/Docusate Sodium 8.6/50 MG Tablet PO SCH ×2 (08:40→20:56)
[2018-05-26 08:42] LABS: Alanine Aminotransferase 125 U/L (12-78); Albumin 3.1 g/dL (3.4-5.0); Anion Gap 9 meq/L (5-15); Aspartate Aminotransferase 176 U/L (15-37); Blood Urea Nitrogen 20 mg/dL (7-18); Calcium 8.7 mg/dL (8.5-10.1); Carbon Dioxide 25.8 meq/L (21.0-32.0); Chloride 105 meq/L (98-107); Glomerular Filtration Rate Greater Than 89 mL/min (>89); Glucose,Random 118 mg/dL (74-106); Magnesium 1.8 mg/dL (1.5-2.5); Phosphorus 3.1 mg/dL (2.5-4.9); Sodium 140 meq/L (136-145)
[2018-05-26] MEDS ORDERED: Pharmacy Ordered Lab Info OTHER ONE (08:45)
[2018-05-26] MEDS: Lisinopril 20 MG Tablet PO SCH (08:46)
[2018-05-26 08:57] LABS: Alkaline Phosphatase 64 U/L (45-117); Creatine Kinase 2918 U/L (39-308); Total Protein 6.9 g/dL (6.4-8.2); Vancomycin,Trough 7.1 mcg/mL (5.0-10.0)
[2018-05-26 09:09] LABS: CKMB Percent 0.2 % (0.0-4.0)
--- NOTE | 2018-05-26 10:27 | P.PN ---
Physical Exam Vital signs: Vital Signs 05/25/18 12:00 05/25/18 16:00 05/25/18 18:29 Temperature 97.4 F L 98.1 F 97.3 F L Pulse Rate 74 72 70 Respiratory Rate 15 15 17 Blood Pressure 101/63 101/56 L 100/60 Pulse Oximetry 92 L 93 L 95 05/25/18 18:51 05/25/18 20:00 05/26/18 00:00 Temperature 97.7 F 97.7 F Pulse Rate 67 68 Respiratory Rate 20 20 Blood Pressure 113/76 105/68 123/70 Pulse Oximetry 93 L 96 05/26/18 04:00 05/26/18 08:00 Temperature 97.5 F L 97.8 F Pulse Rate 70 71 Respiratory Rate 20 18 Blood Pressure 135/77 120/70 Pulse Oximetry 95 94 L Intake & Output 05/25/18 05/26/18 05/26/18 18:59 06:59 18:59 Intake Total 1110 / 1110 930 / 930 Balance 1110 / 1110 930 / 930 Intake: IV 350 / 350 450 / 450 Zosyn 3.375 GM Premix 50 ML @ 100 / 100 100 / 100 100 mls/hr IV.SIG Q6H [facility] Rx#: [id number] Vancomycin Inj 1,000 MG In NS 250 / 250 250 / 250 Inj 250 ML @ 250 mls/hr IV.SIG Q12H [facility] Rx#:[id number] Oral 760 / 760 480 / 480 Other: # Voids 3 Date of Last Bowel Movement 05/24/18 05/25/18 Results - Labs CBC & Chem 7: 05/26/18 03:44 05/26/18 07:57 Laboratory Results - last 24 hr 05/25/18 05/25/18 05/26/18 10:07 17:35 03:44 WBC 6.5 RBC 3.58 L Hgb 12.1 L Hct 36.3 L MCV 101.2 H MCH 33.8 MCHC 33.4 RDW 14.9 Plt Count 111 L MPV 10.5 Neut % (Auto) 88.7 H Lymph % (Auto) 7.1 L [place] % (Auto) 4.1 Eos % (Auto) 0.0 Baso % (Auto) 0.1 Neut # (Auto) 5.8 Lymph # (Auto) 0.5 L [place] # (Auto) 0.3 Eos # (Auto) 0.0 Baso # (Auto) 0.0 WBC Differential . Differential Comment Auto diff final Sodium Potassium Chloride Carbon Dioxide Anion Gap BUN Creatinine Estimated GFR Random Glucose Calcium Phosphorus Magnesium Total Bilirubin AST ALT Alkaline Phosphatase Total Creatine Kinase 5427 H CK-MB (CK-2) 9.8 H CK-MB (CK-2) % 0.2 Total Protein Albumin TSH Free T4 Urine Color Yellow Urine Clarity Clear Urine pH 6.0 Ur Specific [place] 1.023 Urine Protein Negative Urine Glucose (UA) 150 H Urine Ketones Negative Urine Occult Blood Negative Urine Nitrate Negative Urine Bilirubin Negative Urine Urobilinogen Less than 2 Ur Leukocyte Esterase Negative Urine RBC 1 Urine WBC 1 Micro UA Comment Culture not ind Ur Microscopic Review Not Reportable Urine Culture Comments Culture not ind Vancomycin Trough 05/26/18 05/26/18 03:44 07:57 WBC RBC Hgb Hct MCV MCH MCHC RDW Plt Count MPV Neut % (Auto) Lymph % (Auto) [place] % (Auto) Eos % (Auto) Baso % (Auto) Neut # (Auto) Lymph # (Auto) [place] # (Auto) Eos # (Auto) Baso # (Auto) WBC Differential Differential Comment Sodium 140 Potassium 4.0 Chloride 105 Carbon Dioxide 25.8 Anion Gap 9 BUN 20 H Creatinine 0.64 Estimated GFR Greater than 89 Random Glucose 118 H Calcium 8.7 Phosphorus 3.1 Magnesium 1.8 Total Bilirubin 0.3 AST 176 H ALT 125 H Alkaline Phosphatase 64 Total Creatine Kinase 2918 H CK-MB (CK-2) 6.0 H CK-MB (CK-2) % 0.2 Total Protein 6.9 Albumin 3.1 L TSH 0.219 L Free T4 0.80 Urine Color Urine Clarity Urine pH Ur Specific [place] Urine Protein Urine Glucose (UA) Urine Ketones Urine Occult Blood Urine Nitrate Urine Bilirubin Urine Urobilinogen Ur Leukocyte Esterase Urine RBC Urine WBC Micro UA Comment Ur Microscopic Review Urine Culture Comments Vancomycin Trough 7.1 Microbiology 05/24/18 17:15 Blood - Peripheral Aerobic Blood Culture - Preliminary No growth in 1 day 05/24/18 17:15 Blood - Peripheral Anaerobic Blood Culture - Preliminary No growth in 1 day 05/24/18 17:00 Blood - Peripheral Aerobic Blood Culture - Preliminary No growth in 1 day 05/24/18 17:00 Blood - Peripheral Anaerobic Blood Culture - Preliminary No growth in 1 day - Procedures NONE Assessment and Plan - Assessment (1) Neck pain Code(s): M54.2 - Cervicalgia Status: Acute (2) Localized swelling, mass and lump, neck Code(s): R22.1 - Localized swelling, mass and lump, neck Status: Acute - Plan 62-year-old man with Neck swelling/ESCHAR -CT ordered to evaluate -Continue vancomycin AND ZOSYN- CONSULT ID -Prednisone ordered -Appreciate input from general surgery, ID Rhabdomyolysis -Continue IV fluid resuscitation, monitor CK Right hip pain -Continue pain management, PT to treat and eval Hypertension -Continue home lisinopril Chronic pain -Continued scheduled pain and anxiety medications -Resume outpatient medications
--- NOTE | 2018-05-26 10:36 | P.PNGS ---
Subjective Interval history: Still painful to turn head Going for MRI today but he does report he has a broken needle in his spine Physical Exam Vital signs: Vital Signs 05/25/18 12:00 05/25/18 16:00 05/25/18 18:29 Temperature 97.4 F L 98.1 F 97.3 F L Pulse Rate 74 72 70 Respiratory Rate 15 15 17 Blood Pressure 101/63 101/56 L 100/60 Pulse Oximetry 92 L 93 L 95 05/25/18 18:51 05/25/18 20:00 05/26/18 00:00 Temperature 97.7 F 97.7 F Pulse Rate 67 68 Respiratory Rate 20 20 Blood Pressure 113/76 105/68 123/70 Pulse Oximetry 93 L 96 05/26/18 04:00 05/26/18 08:00 Temperature 97.5 F L 97.8 F Pulse Rate 70 71 Respiratory Rate 20 18 Blood Pressure 135/77 120/70 Pulse Oximetry 95 94 L Intake & Output 05/25/18 05/26/18 05/26/18 18:59 06:59 18:59 Intake Total 1110 / 1110 930 / 930 Balance 1110 / 1110 930 / 930 Intake: IV 350 / 350 450 / 450 Zosyn 3.375 GM Premix 50 ML @ 100 / 100 100 / 100 100 mls/hr IV.SIG Q6H [facility] Rx#: [id number] Vancomycin Inj 1,000 MG In NS 250 / 250 250 / 250 Inj 250 ML @ 250 mls/hr IV.SIG Q12H [facility] Rx#:[id number] Oral 760 / 760 480 / 480 Other: # Voids 3 Date of Last Bowel Movement 05/24/18 05/25/18 Narrative: Alert and awake ambulating in the room Neck: eschar appearing wound on posterior neck Results - Labs 05/28/18 03:39 05/28/18 03:39 Laboratory Results - last 24 hr 05/25/18 05/25/18 05/26/18 10:07 17:35 03:44 WBC 6.5 RBC 3.58 L Hgb 12.1 L Hct 36.3 L MCV 101.2 H MCH 33.8 MCHC 33.4 RDW 14.9 Plt Count 111 L MPV 10.5 Neut % (Auto) 88.7 H Lymph % (Auto) 7.1 L [place] % (Auto) 4.1 Eos % (Auto) 0.0 Baso % (Auto) 0.1 Neut # (Auto) 5.8 Lymph # (Auto) 0.5 L [place] # (Auto) 0.3 Eos # (Auto) 0.0 Baso # (Auto) 0.0 WBC Differential . Differential Comment Auto diff final Sodium Potassium Chloride Carbon Dioxide Anion Gap BUN Creatinine Estimated GFR Random Glucose Calcium Phosphorus Magnesium Total Bilirubin AST ALT Alkaline Phosphatase Total Creatine Kinase 5427 H CK-MB (CK-2) 9.8 H CK-MB (CK-2) % 0.2 Total Protein Albumin TSH Free T4 Urine Color Yellow Urine Clarity Clear Urine pH 6.0 Ur Specific [place] 1.023 Urine Protein Negative Urine Glucose (UA) 150 H Urine Ketones Negative Urine Occult Blood Negative Urine Nitrate Negative Urine Bilirubin Negative Urine Urobilinogen Less than 2 Ur Leukocyte Esterase Negative Urine RBC 1 Urine WBC 1 Micro UA Comment Culture not ind Ur Microscopic Review Not Reportable Urine Culture Comments Culture not ind Vancomycin Trough 05/26/18 05/26/18 03:44 07:57 WBC RBC Hgb Hct MCV MCH MCHC RDW Plt Count MPV Neut % (Auto) Lymph % (Auto) [place] % (Auto) Eos % (Auto) Baso % (Auto) Neut # (Auto) Lymph # (Auto) [place] # (Auto) Eos # (Auto) Baso # (Auto) WBC Differential Differential Comment Sodium 140 Potassium 4.0 Chloride 105 Carbon Dioxide 25.8 Anion Gap 9 BUN 20 H Creatinine 0.64 Estimated GFR Greater than 89 Random Glucose 118 H Calcium 8.7 Phosphorus 3.1 Magnesium 1.8 Total Bilirubin 0.3 AST 176 H ALT 125 H Alkaline Phosphatase 64 Total Creatine Kinase 2918 H CK-MB (CK-2) 6.0 H CK-MB (CK-2) % 0.2 Total Protein 6.9 Albumin 3.1 L TSH 0.219 L Free T4 0.80 Urine Color Urine Clarity Urine pH Ur Specific [place] Urine Protein Urine Glucose (UA) Urine Ketones Urine Occult Blood Urine Nitrate Urine Bilirubin Urine Urobilinogen Ur Leukocyte Esterase Urine RBC Urine WBC Micro UA Comment Ur Microscopic Review Urine Culture Comments Vancomycin Trough 7.1 - Imaging Imaging: ITS Impressions Hip X-Ray 05/24/18 00:00 CONCLUSION: 1. Evidence of prior hip screw on the right. 2. No evidence fracture. 3. Mild osteoarthritic findings of the right hip. Soft Tissue Neck CT 05/24/18 13:36 CONCLUSION: 1. Generalized inflammatory process involving the right perivertebral space. There is enlargement and decreased density of the muscles characteristic of myositis. There is no evidence of discrete mass, abnormal fluid collections or lymphadenopathy. 2. Soft tissue structures of the neck are otherwise unremarkable. There are no acute bony abnormalities. Assessment and Plan - Assessment (1) Neck pain Code(s): M54.2 - Cervicalgia Status: Acute Plan: 62 year old male with neck pain; large area of eschar on RIGHT posterior neck -Continue Silvadene cream over eschar -Eschar area should slough off--may take a few weeks -Regular diet -If no improvement can discuss possible surgical intervention -ID following--- ordered MRI ---patient with metal---will need to have that cleared by Radiology - Attending Attestation Pt seen and evaluated on rounds with [employer]. I certify and attest I personally examined the patient. Eschar from heat or pressure. No debridement needed at this time, no abscess. ELOISA GUTIERREZ MD FACS
[2018-05-26] MEDS: Vancomycin Inj 1,000 MG in Sodium Chlor 0.9% Inj 250 ML IV.SIG SCH (10:57)
[2018-05-26 17:33] LABS: Hemoglobin A1c 5.4 % (4.3-6.0)
--- NOTE | 2018-05-26 19:38 | P.PNID ---
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 NO contracindications, had safely MRI last year, so if he will need to have one no issues with proceeding He cont to c/o neckkm pain Denies new problems' Afebrile Antibiotics: zosyn vanco Allergies/Adverse Reactions: Allergies No Known Drug Allergies Allergy (Verified 05/24/18 20:19) NONE *MDRO Multi-Drug Resistant Organism Adverse Reaction (Unknown, Uncoded 05/24/18 20:19) NONE 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 - 08/05/2016 Objective Vital Signs 05/25/18 20:00 05/26/18 00:00 05/26/18 04:00 Temperature 97.7 F 97.7 F 97.5 F L Pulse Rate 67 68 70 Respiratory Rate 20 20 20 Blood Pressure 105/68 123/70 135/77 Pulse Oximetry 93 L 96 95 05/26/18 08:00 05/26/18 12:00 05/26/18 16:00 Temperature 97.8 F 97.8 F 97.5 F L Pulse Rate 71 60 68 Respiratory Rate 18 18 20 Blood Pressure 120/70 133/77 132/75 Pulse Oximetry 94 L 98 97 Intake & Output 05/26/18 05/26/18 05/27/18 06:59 18:59 06:59 Intake Total 930 / 930 50 / 50 300 / 300 Balance 930 / 930 50 / 50 300 / 300 Intake: IV 450 / 450 50 / 50 300 / 300 Zosyn 3.375 GM Premix 50 ML @ 100 / 100 50 / 50 50 / 50 100 mls/hr IV.SIG Q6H [facility] Rx#: [id number] Vancomycin Inj 1,000 MG In NS 250 / 250 250 / 250 Inj 250 ML @ 250 mls/hr IV.SIG Q12H [facility] Rx#:[id number] Oral 480 / 480 Other: # Voids 3 Date of Last Bowel Movement 05/25/18 # Bowel Movements 1 05/24/18 17:15 Blood - Peripheral Aerobic Blood Culture - Preliminary No growth in 2 days 05/24/18 17:15 Blood - Peripheral Anaerobic Blood Culture - Preliminary No growth in 2 days 05/24/18 17:00 Blood - Peripheral Aerobic Blood Culture - Preliminary No growth in 2 days 05/24/18 17:00 Blood - Peripheral Anaerobic Blood Culture - Preliminary No growth in 2 days Lab - Hematology Results 05/25/18 05/26/18 05:03 03:44 WBC 5.3 6.5 RBC 3.81 L 3.58 L Hgb 13.1 12.1 L Hct 38.7 L 36.3 L MCV 101.5 H 101.2 H MCH 34.3 H 33.8 MCHC 33.8 33.4 RDW 15.2 14.9 Plt Count 105 L 111 L MPV 10.0 10.5 Neut % (Auto) 90.9 H 88.7 H Lymph % (Auto) 5.7 L 7.1 L [place] % (Auto) 2.9 4.1 Eos % (Auto) 0.4 0.0 Baso % (Auto) 0.1 0.1 Neut # (Auto) 4.9 5.8 Lymph # (Auto) 0.3 L 0.5 L [place] # (Auto) 0.2 0.3 Eos # (Auto) 0.0 0.0 Baso # (Auto) 0.0 0.0 WBC Differential . . Differential Comment Auto diff final Auto diff final Lab - Chemistry Results 05/24/18 05/25/18 05/25/18 20:06 05:03 10:07 Sodium 140 Potassium 4.3 Chloride 105 Carbon Dioxide 32.1 H Anion Gap 3 L BUN 16 Creatinine 0.59 L Estimated GFR Greater than 89 Random Glucose 120 H Calcium 8.0 L Phosphorus Magnesium Total Bilirubin 0.6 AST 332 H ALT 143 H Alkaline Phosphatase 72 Total Creatine Kinase 8488 H 5427 H CK-MB (CK-2) 20.9 H 9.8 H CK-MB (CK-2) % 0.2 0.2 Total Protein 6.6 Albumin 3.1 L TSH Free T4 05/26/18 05/26/18 03:44 07:57 Sodium 140 Potassium 4.0 Chloride 105 Carbon Dioxide 25.8 Anion Gap 9 BUN 20 H Creatinine 0.64 Estimated GFR Greater than 89 Random Glucose 118 H Calcium 8.7 Phosphorus 3.1 Magnesium 1.8 Total Bilirubin 0.3 AST 176 H ALT 125 H Alkaline Phosphatase 64 Total Creatine Kinase 2918 H CK-MB (CK-2) 6.0 H CK-MB (CK-2) % 0.2 Total Protein 6.9 Albumin 3.1 L TSH 0.219 L Free T4 0.80 Imaging: ITS Impressions Hip X-Ray 05/24/18 00:00 CONCLUSION: 1. Evidence of prior hip screw on the right. 2. No evidence fracture. 3. Mild osteoarthritic findings of the right hip. Soft Tissue Neck CT 05/24/18 13:36 CONCLUSION: 1. Generalized inflammatory process involving the right perivertebral space. There is enlargement and decreased density of the muscles characteristic of myositis. There is no evidence of discrete mass, abnormal fluid collections or lymphadenopathy. 2. Soft tissue structures of the neck are otherwise unremarkable. There are no acute bony abnormalities. Physical Exam: GENERAL: NAD SKIN: Warm and dry. HEAD: Atraumatic. Normocephalic. EYES: Pupils equal and round. No scleral icterus. No injection or drainage. ENT: No nasal bleeding or discharge. Mucous membranes pink and moist. NECK: flexed to the left Indurated, red are on posterior and side neck Black dry eschar geometrically repeating the pattern of pts neck chain and pendant - pt showed it to me: findings cw pressure injury CARDIOVASCULAR: Regular rate and rhythm. RESPIRATORY: No accessory muscle use. Clear to auscultation. Breath sounds equal bilaterally. GASTROINTESTINAL: Abdomen soft, non-tender, nondistended. Hepatic and splenic margins not palpable. MUSCULOSKELETAL: Extremities without clubbing, cyanosis, or edema. No obvious deformities. NEUROLOGICAL: Awake and alert. No obvious cranial nerve deficits. Motor grossly within normal limits. Five out of 5 muscle strength in the arms and legs. Normal speech. PSYCHIATRIC: incoherent intermittently Assessment and Plan - Plan Myositis neck Skin lesion most cw pressure injury suspect staph infection Lymphopenia, thrombocytopenia cont vanco cdc zosyn cancell MRI of the neck HIV MATTHIAS - pt was counselled and agreable
[2018-05-26] MEDS: Vancomycin Inj 1,500 MG in Sodium Chlor 0.9% Inj 500 ML IV.SIG SCH (20:56)
[2018-05-27] MEDS ORDERED: HYDROmorphone PF Inj 2 MG/ML Vial IV.PUSH ONE (00:38)
[2018-05-27 06:17] LABS: Baso % (Auto) 0.2 % (0.0-2.0); Eos % (Auto) 0.1 % (0.0-4.0); Hematocrit 35.8 % (39.0-51.0); Lymph # (Auto) 0.5 th/mm3 (1.0-4.8); Lymph % (Auto) 9.8 % (9.0-44.0); Mean Corpuscular HGB Conc 33.7 % (32.0-36.0); Mean Corpuscular Hemoglobin 34.1 pg (27.0-34.0); Mean Corpuscular Volume 101.2 fL (80.0-100.0); Mean Platelet Volume 10.6 fL (7.0-11.0); Mono # (Auto) 0.3 th/mm3 (0.0-0.9); Mono % (Auto) 6.3 % (0.0-8.0); Neut # (Auto) 4.6 th/mm3 (1.8-7.7); Neut % (Auto) 83.6 % (16.0-70.0); Platelet Count 107 th/mm3 (150-450); Red Blood Count 3.53 mil/mm3 (4.50-5.90); Red Cell Distribution Width 14.6 % (11.6-17.2); White Blood Count 5.5 th/mm3 (4.0-11.0)
[2018-05-27 06:34] LABS: Alanine Aminotransferase 98 U/L (12-78); Albumin 2.7 g/dL (3.4-5.0); Anion Gap 8 meq/L (5-15); Aspartate Aminotransferase 85 U/L (15-37); Blood Urea Nitrogen 16 mg/dL (7-18); Carbon Dioxide 27.4 meq/L (21.0-32.0); Chloride 109 meq/L (98-107); Glucose,Random 130 mg/dL (74-106); Potassium 3.8 meq/L (3.5-5.1); Sodium 144 meq/L (136-145)
[2018-05-27 06:35] LABS: Glomerular Filtration Rate Greater Than 89 mL/min (>89)
[2018-05-27 06:47] LABS: Alkaline Phosphatase 58 U/L (45-117); Creatine Kinase 1187 U/L (39-308)
[2018-05-27 07:08] LABS: CKMB Percent 0.4 % (0.0-4.0); Creatine Kinase MB 4.4 ng/mL (0.5-3.6)
[2018-05-27] MEDS: Lisinopril 20 MG Tablet PO SCH ×2 (08:15→08:19)
[2018-05-27] MEDS: Vancomycin Inj 1,500 MG in Sodium Chlor 0.9% Inj 500 ML IV.SIG SCH ×2 (08:17→22:05)
[2018-05-27] MEDS: Senna/Docusate Sodium 8.6/50 MG Tablet PO SCH ×2 (08:19→20:11)
--- NOTE | 2018-05-27 10:13 | P.PN ---
Subjective Interval history: Follow up with right posterior neck eschar 05/27/18-Patient seen and examined;stable and afebrile, no chest pain or shortness of breath Physical Exam Vital signs: Vital Signs 05/26/18 12:00 05/26/18 16:00 05/26/18 20:52 Temperature 97.8 F 97.5 F L 97.7 F Pulse Rate 60 68 61 Respiratory Rate 18 20 17 Blood Pressure 133/77 132/75 128/75 Pulse Oximetry 98 97 98 05/27/18 00:00 05/27/18 04:00 05/27/18 07:38 Temperature 97.4 F L 97.1 F L 97.7 F Pulse Rate 54 L 56 L 54 L Respiratory Rate 20 18 18 Blood Pressure 170/92 H 159/88 H 132/83 Pulse Oximetry 97 98 97 05/27/18 09:09 Temperature Pulse Rate Respiratory Rate 16 Blood Pressure Pulse Oximetry Intake & Output 05/26/18 05/27/18 05/27/18 18:59 06:59 18:59 Intake Total 50 / 50 680 / 680 515 / 515 Balance 50 / 50 680 / 680 515 / 515 Weight 74.2 kg Intake: IV 50 / 50 300 / 300 515 / 515 Zosyn 3.375 GM Premix 50 ML @ 50 / 50 50 / 50 100 mls/hr IV.SIG Q6H [facility] Rx#: [id number] Vancomycin Inj 1,000 MG In NS 250 / 250 Inj 250 ML @ 250 mls/hr IV.SIG Q12H [facility] Rx#:[id number] Vancomycin Inj 1,500 MG In NS 515 / 515 Inj 500 ML @ 250 mls/hr IV.SIG Q12H [facility] Rx#:[id number] Oral 380 / 380 Other: # Voids 3 Date of Last Bowel Movement 05/26/18 05/26/18 # Bowel Movements 1 Narrative: GENERAL: NAD SKIN: Warm and dry. HEAD: Normocephalic. EYES: No scleral icterus. No injection or drainage. NECK: Supple, trachea midline. No JVD or lymphadenopathy. CARDIOVASCULAR: Regular rate and rhythm without murmurs, gallops, or rubs. RESPIRATORY: Breath sounds equal bilaterally. No accessory muscle use. GASTROINTESTINAL: Abdomen soft, non-tender, nondistended. MUSCULOSKELETAL: No cyanosis, or edema. BACK: Nontender without obvious deformity. No CVA tenderness. Neck: eschar appearing wound on posterior neck Results - Labs CBC & Chem 7: 05/27/18 05:35 05/27/18 05:35 Laboratory Results - last 24 hr 05/26/18 05/26/18 05/27/18 03:44 21:56 05:35 WBC 5.5 RBC 3.53 L Hgb 12.0 L Hct 35.8 L MCV 101.2 H MCH 34.1 H MCHC 33.7 RDW 14.6 Plt Count 107 L MPV 10.6 Neut % (Auto) 83.6 H Lymph % (Auto) 9.8 [place] % (Auto) 6.3 Eos % (Auto) 0.1 Baso % (Auto) 0.2 Neut # (Auto) 4.6 Lymph # (Auto) 0.5 L [place] # (Auto) 0.3 Eos # (Auto) 0.0 Baso # (Auto) 0.0 WBC Differential . Differential Comment Auto diff final Sodium Potassium Chloride Carbon Dioxide Anion Gap BUN Creatinine Estimated GFR Random Glucose Hemoglobin A1c 5.4 Calcium Total Bilirubin AST ALT Alkaline Phosphatase Total Creatine Kinase CK-MB (CK-2) CK-MB (CK-2) % Total Protein Albumin HIV 1&2 Ab/P24 Ag 4thGn Nonreactive 05/27/18 05:35 WBC RBC Hgb Hct MCV MCH MCHC RDW Plt Count MPV Neut % (Auto) Lymph % (Auto) [place] % (Auto) Eos % (Auto) Baso % (Auto) Neut # (Auto) Lymph # (Auto) [place] # (Auto) Eos # (Auto) Baso # (Auto) WBC Differential Differential Comment Sodium 144 Potassium 3.8 Chloride 109 H Carbon Dioxide 27.4 Anion Gap 8 BUN 16 Creatinine 0.50 L Estimated GFR Greater than 89 Random Glucose 130 H Hemoglobin A1c Calcium 8.0 L Total Bilirubin 0.3 AST 85 H ALT 98 H Alkaline Phosphatase 58 Total Creatine Kinase 1187 H CK-MB (CK-2) 4.4 H CK-MB (CK-2) % 0.4 Total Protein 6.0 L D Albumin 2.7 L HIV 1&2 Ab/P24 Ag 4thGn Microbiology 05/24/18 17:15 Blood - Peripheral Aerobic Blood Culture - Preliminary No growth in 2 days 05/24/18 17:15 Blood - Peripheral Anaerobic Blood Culture - Preliminary No growth in 2 days 05/24/18 17:00 Blood - Peripheral Aerobic Blood Culture - Preliminary No growth in 2 days 05/24/18 17:00 Blood - Peripheral Anaerobic Blood Culture - Preliminary No growth in 2 days - Procedures NONE Assessment and Plan - Assessment (1) Neck pain Code(s): M54.2 - Cervicalgia Status: Acute (2) Localized swelling, mass and lump, neck Code(s): R22.1 - Localized swelling, mass and lump, neck Status: Acute - Plan 62-year-old man with Neck swelling/ESCHAR -Need MRI for further evaluation -Continue vancomycin AND ZOSYN- CONSULT ID -Prednisone ordered -Appreciate input from general surgery, ID Continue Silvadene cream over eschar Per Gen surgery :Eschar area should slough off--may take a few weeks Rhabdomyolysis-improving -Continue IV fluid resuscitation, monitor CK Right hip pain -Continue pain management, PT to treat and eval Hypertension -Continue home lisinopril Chronic pain -Continued scheduled pain and anxiety medications -continue outpatient medications
--- NOTE | 2018-05-27 15:57 | P.PNID ---
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 NO contracindications, had safely MRI last year, so if he will need to have one no issues with proceeding He cont to c/o neck pain Denies new problems' Afebrile Blood clx neg @ 3 days Antibiotics: vanco Allergies/Adverse Reactions: Allergies No Known Drug Allergies Allergy (Verified 05/24/18 20:19) NONE *MDRO Multi-Drug Resistant Organism Adverse Reaction (Unknown, Uncoded 05/24/18 20:19) NONE 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 - 08/05/2016 Objective Vital Signs 05/26/18 16:00 05/26/18 20:52 05/27/18 00:00 Temperature 97.5 F L 97.7 F 97.4 F L Pulse Rate 68 61 54 L Respiratory Rate 20 17 20 Blood Pressure 132/75 128/75 170/92 H Pulse Oximetry 97 98 97 05/27/18 04:00 05/27/18 07:38 05/27/18 09:09 Temperature 97.1 F L 97.7 F Pulse Rate 56 L 54 L Respiratory Rate 18 18 16 Blood Pressure 159/88 H 132/83 Pulse Oximetry 98 97 05/27/18 12:00 05/27/18 12:36 Temperature 98.3 F Pulse Rate 60 Respiratory Rate 18 16 Blood Pressure 150/84 H Pulse Oximetry 94 L Intake & Output 05/26/18 05/27/18 05/27/18 18:59 06:59 18:59 Intake Total 50 / 50 680 / 680 1030 / 1030 Balance 50 / 50 680 / 680 1030 / 1030 Weight 74.2 kg Intake: IV 50 / 50 300 / 300 1030 / 1030 Zosyn 3.375 GM Premix 50 ML @ 50 / 50 50 / 50 100 mls/hr IV.SIG Q6H [facility] Rx#: [id number] Vancomycin Inj 1,000 MG In NS 250 / 250 Inj 250 ML @ 250 mls/hr IV.SIG Q12H [facility] Rx#:[id number] Vancomycin Inj 1,500 MG In NS 1030 / 1030 Inj 500 ML @ 250 mls/hr IV.SIG Q12H [facility] Rx#:[id number] Oral 380 / 380 Other: # Voids 3 Date of Last Bowel Movement 05/26/18 05/26/18 # Bowel Movements 1 1 05/24/18 17:15 Blood - Peripheral Aerobic Blood Culture - Preliminary No growth in 3 days 05/24/18 17:15 Blood - Peripheral Anaerobic Blood Culture - Preliminary No growth in 3 days 05/24/18 17:00 Blood - Peripheral Aerobic Blood Culture - Preliminary No growth in 3 days 05/24/18 17:00 Blood - Peripheral Anaerobic Blood Culture - Preliminary No growth in 3 days Lab - Hematology Results 05/26/18 05/27/18 03:44 05:35 WBC 6.5 5.5 RBC 3.58 L 3.53 L Hgb 12.1 L 12.0 L Hct 36.3 L 35.8 L MCV 101.2 H 101.2 H MCH 33.8 34.1 H MCHC 33.4 33.7 RDW 14.9 14.6 Plt Count 111 L 107 L MPV 10.5 10.6 Neut % (Auto) 88.7 H 83.6 H Lymph % (Auto) 7.1 L 9.8 [place] % (Auto) 4.1 6.3 Eos % (Auto) 0.0 0.1 Baso % (Auto) 0.1 0.2 Neut # (Auto) 5.8 4.6 Lymph # (Auto) 0.5 L 0.5 L [place] # (Auto) 0.3 0.3 Eos # (Auto) 0.0 0.0 Baso # (Auto) 0.0 0.0 WBC Differential . . Differential Comment Auto diff final Auto diff final Lab - Chemistry Results 05/26/18 05/26/18 05/26/18 03:44 03:44 07:57 Sodium 140 Potassium 4.0 Chloride 105 Carbon Dioxide 25.8 Anion Gap 9 BUN 20 H Creatinine 0.64 Estimated GFR Greater than 89 Random Glucose 118 H Hemoglobin A1c 5.4 Calcium 8.7 Phosphorus 3.1 Magnesium 1.8 Total Bilirubin 0.3 AST 176 H ALT 125 H Alkaline Phosphatase 64 Total Creatine Kinase 2918 H CK-MB (CK-2) 6.0 H CK-MB (CK-2) % 0.2 Total Protein 6.9 Albumin 3.1 L TSH 0.219 L Free T4 0.80 05/27/18 05:35 Sodium 144 Potassium 3.8 Chloride 109 H Carbon Dioxide 27.4 Anion Gap 8 BUN 16 Creatinine 0.50 L Estimated GFR Greater than 89 Random Glucose 130 H Hemoglobin A1c Calcium 8.0 L Phosphorus Magnesium Total Bilirubin 0.3 AST 85 H ALT 98 H Alkaline Phosphatase 58 Total Creatine Kinase 1187 H CK-MB (CK-2) 4.4 H CK-MB (CK-2) % 0.4 Total Protein 6.0 L D Albumin 2.7 L TSH Free T4 Imaging: ITS Impressions Hip X-Ray 05/24/18 00:00 CONCLUSION: 1. Evidence of prior hip screw on the right. 2. No evidence fracture. 3. Mild osteoarthritic findings of the right hip. Soft Tissue Neck CT 05/24/18 13:36 CONCLUSION: 1. Generalized inflammatory process involving the right perivertebral space. There is enlargement and decreased density of the muscles characteristic of myositis. There is no evidence of discrete mass, abnormal fluid collections or lymphadenopathy. 2. Soft tissue structures of the neck are otherwise unremarkable. There are no acute bony abnormalities. Physical Exam: GENERAL: NAD SKIN: Warm and dry. HEAD: Atraumatic. Normocephalic. EYES: Pupils equal and round. No scleral icterus. No injection or drainage. ENT: No nasal bleeding or discharge. Mucous membranes pink and moist. NECK: flexed to the left Indurated, red are on posterior and side neck quite tender to touch, no fluctuance Black dry eschar geometrically repeating the pattern of pts neck chain and pendant - pt showed it to me: findings cw pressure injury CARDIOVASCULAR: Regular rate and rhythm. RESPIRATORY: No accessory muscle use. Clear to auscultation. Breath sounds equal bilaterally. GASTROINTESTINAL: Abdomen soft, non-tender, nondistended. Hepatic and splenic margins not palpable. MUSCULOSKELETAL: Extremities without clubbing, cyanosis, or edema. No obvious deformities. NEUROLOGICAL: Awake and alert. No obvious cranial nerve deficits. Motor grossly within normal limits. Five out of 5 muscle strength in the arms and legs. Normal speech. PSYCHIATRIC: beligerent Assessment and Plan - Plan Myositis neck : ? ethiology Skin lesion most cw pressure injury Lymphopenia, thrombocytopenia HIV MATTHIAS neg cont vanco MRI of soft tissues neck w contast will be a study of choice if worse/ no improvement within 24-48 hrs dw radiologist janessa Damon
[2018-05-28] MEDS ORDERED: HYDROmorphone PF Inj 2 MG/ML Vial IV.PUSH ONE (00:25)
[2018-05-28 04:56] LABS: Baso % (Auto) 0.1 % (0.0-2.0); Hematocrit 36.9 % (39.0-51.0); Hemoglobin 12.6 gm/dL (13.0-17.0); Lymph # (Auto) 0.5 th/mm3 (1.0-4.8); Lymph % (Auto) 9.7 % (9.0-44.0); Mean Corpuscular HGB Conc 34.2 % (32.0-36.0); Mean Corpuscular Hemoglobin 34.2 pg (27.0-34.0); Mean Platelet Volume 10.5 fL (7.0-11.0); Mono # (Auto) 0.3 th/mm3 (0.0-0.9); Mono % (Auto) 5.5 % (0.0-8.0); Neut # (Auto) 4.7 th/mm3 (1.8-7.7); Neut % (Auto) 84.7 % (16.0-70.0); Platelet Count 121 th/mm3 (150-450); Red Blood Count 3.69 mil/mm3 (4.50-5.90); Red Cell Distribution Width 14.6 % (11.6-17.2); White Blood Count 5.5 th/mm3 (4.0-11.0)
[2018-05-28 05:25] LABS: Albumin 2.7 g/dL (3.4-5.0); Anion Gap 8 meq/L (5-15); Aspartate Aminotransferase 51 U/L (15-37); Blood Urea Nitrogen 16 mg/dL (7-18); Calcium 8.1 mg/dL (8.5-10.1); Carbon Dioxide 27.1 meq/L (21.0-32.0); Chloride 107 meq/L (98-107); Glomerular Filtration Rate Greater Than 89 mL/min (>89); Glucose,Random 147 mg/dL (74-106); Potassium 3.8 meq/L (3.5-5.1); Sodium 142 meq/L (136-145)
[2018-05-28 05:27] LABS: Alanine Aminotransferase 86 U/L (12-78)
[2018-05-28 05:29] LABS: Alkaline Phosphatase 64 U/L (45-117); Total Protein 6.1 g/dL (6.4-8.2)
[2018-05-28] MEDS: Lisinopril 20 MG Tablet PO SCH (08:40)
[2018-05-28] MEDS: Senna/Docusate Sodium 8.6/50 MG Tablet PO SCH ×2 (08:40→20:20)
[2018-05-28] MEDS ORDERED: Pharmacy Ordered Lab Info OTHER ONE (08:45)
[2018-05-28] MEDS: Vancomycin Inj 1,500 MG in Sodium Chlor 0.9% Inj 500 ML IV.SIG SCH ×2 (08:52→20:19)
--- NOTE | 2018-05-28 08:52 | P.PN ---
Subjective Interval history: Follow up with right posterior neck eschar 05/27/18-Patient seen and examined;stable and afebrile, no chest pain or shortness of breath 05/28/18-patient seen and examined, complains of back, head right shoulder and neck pain. Afebrile. Culture negative to date. Requesting more narcotics. Physical Exam Vital signs: Vital Signs 05/27/18 09:09 05/27/18 12:00 05/27/18 12:36 Temperature 98.3 F Pulse Rate 60 Respiratory Rate 16 18 16 Blood Pressure 150/84 H Pulse Oximetry 94 L 05/27/18 16:00 05/27/18 17:25 05/27/18 20:00 Temperature 98.0 F 97.6 F Pulse Rate 59 L 60 Respiratory Rate 18 16 18 Blood Pressure 151/86 H 151/81 H Pulse Oximetry 98 96 05/28/18 00:00 05/28/18 04:00 05/28/18 07:47 Temperature 97.8 F 97.8 F Pulse Rate 58 L 48 L Respiratory Rate 18 18 16 Blood Pressure 180/96 H 158/90 H Pulse Oximetry 99 98 05/28/18 08:00 Temperature 97.7 F Pulse Rate 51 L Respiratory Rate 18 Blood Pressure 164/94 H Pulse Oximetry 98 Intake & Output 05/27/18 05/28/18 05/28/18 18:59 06:59 18:59 Intake Total 1730 / 1730 1315 / 1315 Balance 1730 / 1730 1315 / 1315 Weight 74.4 kg Intake: IV 1030 / 1030 515 / 515 Vancomycin Inj 1,500 MG In NS 1030 / 1030 515 / 515 Inj 500 ML @ 250 mls/hr IV.SIG Q12H [facility] Rx#:[id number] Oral 700 / 700 800 / 800 Other: # Voids 3 3 Date of Last Bowel Movement 05/26/18 05/26/18 05/26/18 # Bowel Movements 1 Narrative: GENERAL: NAD SKIN: Warm and dry. HEAD: Normocephalic. EYES: No scleral icterus. No injection or drainage. NECK: Supple, trachea midline. No JVD or lymphadenopathy. CARDIOVASCULAR: Regular rate and rhythm without murmurs, gallops, or rubs. RESPIRATORY: Breath sounds equal bilaterally. No accessory muscle use. GASTROINTESTINAL: Abdomen soft, non-tender, nondistended. MUSCULOSKELETAL: No cyanosis, or edema. BACK: Nontender without obvious deformity. No CVA tenderness. Neck: eschar appearing wound on posterior neck Results - Labs CBC & Chem 7: 05/28/18 03:39 05/28/18 03:39 Laboratory Results - last 24 hr 05/28/18 05/28/18 03:39 03:39 WBC 5.5 RBC 3.69 L Hgb 12.6 L Hct 36.9 L MCV 100.0 MCH 34.2 H MCHC 34.2 RDW 14.6 Plt Count 121 L MPV 10.5 Neut % (Auto) 84.7 H Lymph % (Auto) 9.7 [place] % (Auto) 5.5 Eos % (Auto) 0.0 Baso % (Auto) 0.1 Neut # (Auto) 4.7 Lymph # (Auto) 0.5 L [place] # (Auto) 0.3 Eos # (Auto) 0.0 Baso # (Auto) 0.0 WBC Differential . Differential Comment Auto diff final Sodium 142 Potassium 3.8 Chloride 107 Carbon Dioxide 27.1 Anion Gap 8 BUN 16 Creatinine 0.58 L Estimated GFR Greater than 89 Random Glucose 147 H Calcium 8.1 L Total Bilirubin 0.3 AST 51 H ALT 86 H Alkaline Phosphatase 64 Total Protein 6.1 L Albumin 2.7 L Microbiology 05/24/18 17:15 Blood - Peripheral Aerobic Blood Culture - Preliminary No growth in 3 days 05/24/18 17:15 Blood - Peripheral Anaerobic Blood Culture - Preliminary No growth in 3 days 05/24/18 17:00 Blood - Peripheral Aerobic Blood Culture - Preliminary No growth in 3 days 05/24/18 17:00 Blood - Peripheral Anaerobic Blood Culture - Preliminary No growth in 3 days - Procedures NONE Assessment and Plan - Assessment (1) Neck pain Code(s): M54.2 - Cervicalgia Status: Acute (2) Localized swelling, mass and lump, neck Code(s): R22.1 - Localized swelling, mass and lump, neck Status: Acute - Plan 62-year-old man with Neck swelling/ESCHAR -MRI PRN for further evaluation -Continue vancomycin per ID -d/c Prednisone -Appreciate input from general surgery, ID Continue Silvadene cream over eschar Per Gen surgery :Eschar area should slough off--may take a few weeks Rhabdomyolysis-improving -Continue IV fluid resuscitation, monitor CK Right hip pain -Continue pain management, PT to treat and eval Hypertension -Continue home lisinopril Chronic pain -Continued scheduled pain and anxiety medications -continue outpatient medications
[2018-05-28 09:29] LABS: Vancomycin,Trough 10.1 mcg/mL (5.0-10.0)
[2018-05-28 09:42] LABS: CKMB Percent 0.7 % (0.0-4.0); Creatine Kinase MB 2.9 ng/mL (0.5-3.6)
[2018-05-29] MEDS: Senna/Docusate Sodium 8.6/50 MG Tablet PO SCH ×2 (08:40→21:35)
[2018-05-29] MEDS: Lisinopril 20 MG Tablet PO SCH (08:40)
--- NOTE | 2018-05-29 10:17 | P.PN ---
Subjective Interval history: Follow up with right posterior neck eschar 05/27/18-Patient seen and examined;stable and afebrile, no chest pain or shortness of breath 05/28/18-patient seen and examined, complains of back, head right shoulder and neck pain. Afebrile. Culture negative to date. Requesting more narcotics. 05/29/18-patient seen and examined, stable, afebrile. Case discussed with nurse care manager Exam Vital signs: Vital Signs 05/28/18 11:35 05/28/18 14:04 05/28/18 16:00 Temperature 97.4 F L 98 F Pulse Rate 71 62 Respiratory Rate 18 16 20 Blood Pressure 146/81 H 169/85 H Pulse Oximetry 97 98 05/28/18 20:00 05/29/18 00:00 05/29/18 04:00 Temperature 98 F 97.9 F 97.6 F Pulse Rate 60 59 L 50 L Respiratory Rate 17 18 18 Blood Pressure 167/71 H 165/91 H 133/79 Pulse Oximetry 98 97 98 05/29/18 08:00 Temperature 98.1 F Pulse Rate 60 Respiratory Rate 16 Blood Pressure 150/92 H Pulse Oximetry 95 Intake & Output 05/28/18 05/29/18 05/29/18 18:59 06:59 18:59 Intake Total 1115 / 1115 515 / 515 Balance 1115 / 1115 515 / 515 Weight 74.4 kg Intake: IV 515 / 515 515 / 515 Vancomycin Inj 1,500 MG In NS 515 / 515 515 / 515 Inj 500 ML @ 250 mls/hr IV.SIG Q12H [facility] Rx#:[id number] Oral 600 / 600 Other: # Voids 3 4 Date of Last Bowel Movement 05/26/18 05/28/18 05/28/18 Narrative: GENERAL: NAD SKIN: Warm and dry. HEAD: Normocephalic. EYES: No scleral icterus. No injection or drainage. NECK: Supple, trachea midline. No JVD or lymphadenopathy. CARDIOVASCULAR: Regular rate and rhythm without murmurs, gallops, or rubs. RESPIRATORY: Breath sounds equal bilaterally. No accessory muscle use. GASTROINTESTINAL: Abdomen soft, non-tender, nondistended. MUSCULOSKELETAL: No cyanosis, or edema. BACK: Nontender without obvious deformity. No CVA tenderness. Neck: eschar appearing wound on posterior neck Results - Labs CBC & Chem 7: 05/28/18 03:39 05/28/18 03:39 Microbiology 05/24/18 17:15 Blood - Peripheral Aerobic Blood Culture - Preliminary No growth in 4 days 05/24/18 17:15 Blood - Peripheral Anaerobic Blood Culture - Preliminary No growth in 4 days 05/24/18 17:00 Blood - Peripheral Aerobic Blood Culture - Preliminary No growth in 4 days 05/24/18 17:00 Blood - Peripheral Anaerobic Blood Culture - Preliminary No growth in 4 days - Procedures NONE Assessment and Plan - Assessment (1) Neck pain Code(s): M54.2 - Status: Acute (2) Localized swelling, mass and lump, neck Code(s): R22.1 - Status: Acute - Plan 62-year-old man with Neck swelling/ESCHAR -MRI PRN for further evaluation -Continue vancomycin per ID; cultures have remained negative to date -s/p Prednisone -Appreciate input from general surgery, ID Continue Silvadene cream over eschar Per Gen surgery :Eschar area should slough off--may take a few weeks Rhabdomyolysis-improving Right hip pain -Continue pain management, PT to treat and eval Hypertension -Continue home lisinopril; clonidine as needed Chronic pain -Continued scheduled pain and anxiety medications -continue outpatient medications
[2018-05-29] MEDS: Vancomycin Inj 1,500 MG in Sodium Chlor 0.9% Inj 500 ML IV.SIG SCH ×2 (11:51→21:34)
[2018-05-29] MEDS ORDERED: SILDENAFIL 100 MG PO PRN (14:02)
--- NOTE | 2018-05-29 16:39 | P.PNID ---
Subjective Remarks: Pt is c/o persistent pain He is beligerent and rude No fever blood clx negative - final Now claiming difficulty swallowing "food gets stuck in the throat when swallows " Antibiotics: vanco Allergies/Adverse Reactions: Allergies No Known Drug Allergies Allergy (Verified 05/24/18 20:19) NONE *MDRO Multi-Drug Resistant Organism Adverse Reaction (Unknown, Uncoded 05/24/18 20:19) NONE 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 - 08/05/2016 Objective Vital Signs 05/28/18 20:00 05/29/18 00:00 05/29/18 04:00 Temperature 98 F 97.9 F 97.6 F Pulse Rate 60 59 L 50 L Respiratory Rate 17 18 18 Blood Pressure 167/71 H 165/91 H 133/79 Pulse Oximetry 98 97 98 05/29/18 08:00 05/29/18 12:00 Temperature 98.1 F 97.9 F Pulse Rate 60 73 Respiratory Rate 16 16 Blood Pressure 150/92 H 140/86 Pulse Oximetry 95 97 Intake & Output 05/28/18 05/29/18 05/29/18 18:59 06:59 18:59 Intake Total 1115 / 1115 515 / 515 Balance 1115 / 1115 515 / 515 Weight 74.4 kg Intake: IV 515 / 515 515 / 515 Vancomycin Inj 1,500 MG In NS 515 / 515 515 / 515 Inj 500 ML @ 250 mls/hr IV.SIG Q12H [facility] Rx#:[id number] Oral 600 / 600 Other: # Voids 3 4 Date of Last Bowel Movement 05/26/18 05/28/18 05/28/18 05/24/18 17:15 Blood - Peripheral Aerobic Blood Culture - Final No growth in 5 days 05/24/18 17:15 Blood - Peripheral Anaerobic Blood Culture - Final No growth in 5 days 05/24/18 17:00 Blood - Peripheral Aerobic Blood Culture - Final No growth in 5 days 05/24/18 17:00 Blood - Peripheral Anaerobic Blood Culture - Final No growth in 5 days Lab - Hematology Results 05/28/18 03:39 WBC 5.5 RBC 3.69 L Hgb 12.6 L Hct 36.9 L MCV 100.0 MCH 34.2 H MCHC 34.2 RDW 14.6 Plt Count 121 L MPV 10.5 Neut % (Auto) 84.7 H Lymph % (Auto) 9.7 [place] % (Auto) 5.5 Eos % (Auto) 0.0 Baso % (Auto) 0.1 Neut # (Auto) 4.7 Lymph # (Auto) 0.5 L [place] # (Auto) 0.3 Eos # (Auto) 0.0 Baso # (Auto) 0.0 WBC Differential . Differential Comment Auto diff final Lab - Chemistry Results 05/28/18 05/28/18 03:39 08:50 Sodium 142 Potassium 3.8 Chloride 107 Carbon Dioxide 27.1 Anion Gap 8 BUN 16 Creatinine 0.58 L Estimated GFR Greater than 89 Random Glucose 147 H Calcium 8.1 L Total Bilirubin 0.3 AST 51 H ALT 86 H Alkaline Phosphatase 64 Total Creatine Kinase 408 H CK-MB (CK-2) 2.9 CK-MB (CK-2) % 0.7 Total Protein 6.1 L Albumin 2.7 L Imaging: ITS Impressions Hip X-Ray 05/24/18 00:00 CONCLUSION: 1. Evidence of prior hip screw on the right. 2. No evidence fracture. 3. Mild osteoarthritic findings of the right hip. Soft Tissue Neck CT 05/24/18 13:36 CONCLUSION: 1. Generalized inflammatory process involving the right perivertebral space. There is enlargement and decreased density of the muscles characteristic of myositis. There is no evidence of discrete mass, abnormal fluid collections or lymphadenopathy. 2. Soft tissue structures of the neck are otherwise unremarkable. There are no acute bony abnormalities. Physical Exam: GENERAL: NAD SKIN: Warm and dry. EYES: Pupils equal and round. No scleral icterus. No injection or drainage. ENT: No nasal bleeding or discharge. Mucous membranes pink and moist. NECK: flexed to the left Indurated, red are on posterior and side neck quite tender to touch, no fluctuance Area of edema stays the same or slightly worse Black dry eschar geometrically repeating the pattern of pts neck chain and pendant - pt showed it to me: findings cw pressure injury RESPIRATORY: No accessory muscle use. breathing unlaboured GASTROINTESTINAL: Abdomen soft, non-tender, nondistended. Hepatic and splenic margins not palpable. MUSCULOSKELETAL: Extremities without clubbing, cyanosis, or edema. No obvious deformities. NEUROLOGICAL: Awake and alert. No obvious cranial nerve deficits. Motor grossly within normal limits. Five out of 5 muscle strength in the arms and legs. Normal speech. PSYCHIATRIC: beligerent Assessment and Plan - Plan Myositis neck : ? ethiology pt c/o non improving paina nd also now c/o difficulty swallowing Skin lesion most cw pressure injury Lymphopenia, thrombocytopenia HIV MATTHIAS neg cont vanco MRI of soft tissues neck w contast chk hepatitis profile dw Dr Damon
--- NOTE | 2018-05-29 16:56 | P.PNGS ---
Subjective Patient reports: still having pain Physical Exam Vital signs: Vital Signs 05/28/18 20:00 05/29/18 00:00 05/29/18 04:00 Temperature 98 F 97.9 F 97.6 F Pulse Rate 60 59 L 50 L Respiratory Rate 17 18 18 Blood Pressure 167/71 H 165/91 H 133/79 Pulse Oximetry 98 97 98 05/29/18 08:00 05/29/18 12:00 Temperature 98.1 F 97.9 F Pulse Rate 60 73 Respiratory Rate 16 16 Blood Pressure 150/92 H 140/86 Pulse Oximetry 95 97 Intake & Output 05/28/18 05/29/18 05/29/18 18:59 06:59 18:59 Intake Total 1115 / 1115 515 / 515 Balance 1115 / 1115 515 / 515 Weight 74.4 kg Intake: IV 515 / 515 515 / 515 Vancomycin Inj 1,500 MG In NS 515 / 515 515 / 515 Inj 500 ML @ 250 mls/hr IV.SIG Q12H [facility] Rx#:[id number] Oral 600 / 600 Other: # Voids 3 4 Date of Last Bowel Movement 05/26/18 05/28/18 05/28/18 - Routine HEENT Exam Comments: eschar stable, no active infection. Results - Labs 05/28/18 03:39 05/28/18 03:39 - Imaging Imaging: ITS Impressions Hip X-Ray 05/24/18 00:00 CONCLUSION: 1. Evidence of prior hip screw on the right. 2. No evidence fracture. 3. Mild osteoarthritic findings of the right hip. Soft Tissue Neck CT 05/24/18 13:36 CONCLUSION: 1. Generalized inflammatory process involving the right perivertebral space. There is enlargement and decreased density of the muscles characteristic of myositis. There is no evidence of discrete mass, abnormal fluid collections or lymphadenopathy. 2. Soft tissue structures of the neck are otherwise unremarkable. There are no acute bony abnormalities. Assessment and Plan - Assessment (1) Neck pain Code(s): M54.2 - Cervicalgia Status: Acute Plan: 62 year old male with neck pain; large area of eschar on RIGHT posterior neck -Continue Silvadene cream over eschar -Eschar area should slough off--may take a few weeks -Regular diet -If no improvement can discuss possible surgical intervention -ID following--- ordered MRI ---patient with metal---will need to have that cleared by Radiology - Plan continue local wound care. no surgical intervention planned
[2018-05-30 05:30] LABS: Glomerular Filtration Rate Greater Than 89 mL/min (>89)
[2018-05-30] MEDS: Senna/Docusate Sodium 8.6/50 MG Tablet PO SCH ×2 (09:02→20:10)
[2018-05-30] MEDS: Lisinopril 20 MG Tablet PO SCH (09:02)
[2018-05-30] MEDS: Loratadine 10 MG Tablet PO SCH (09:03)
[2018-05-30] MEDS: Vancomycin Inj 1,500 MG in Sodium Chlor 0.9% Inj 500 ML IV.SIG SCH ×2 (09:12→21:19)
--- NOTE | 2018-05-30 09:34 | P.PN ---
Subjective Interval history: Follow up with right posterior neck eschar 05/27/18-Patient seen and examined;stable and afebrile, no chest pain or shortness of breath 05/28/18-patient seen and examined, complains of back, head right shoulder and neck pain. Afebrile. Culture negative to date. Requesting more narcotics. 05/29/18-patient seen and examined, stable, afebrile. Case discussed with nurse manager post 05/30/18-patient seen and examined, plan for Neck MRI. Still with some Neck pain ; afebrile Physical Exam Vital signs: Vital Signs 05/29/18 12:00 05/29/18 16:00 05/29/18 20:00 Temperature 97.9 F 98.2 F 97.8 F Pulse Rate 73 66 74 Respiratory Rate 16 18 Blood Pressure 140/86 137/86 132/78 Pulse Oximetry 97 96 97 05/30/18 00:00 05/30/18 04:00 05/30/18 08:00 Temperature 97.8 F 97.6 F 98.0 F Pulse Rate 70 72 64 Respiratory Rate 18 16 Blood Pressure 126/84 128/82 137/89 Pulse Oximetry 97 97 98 Intake & Output 05/29/18 05/30/18 05/30/18 18:59 06:59 18:59 Intake Total 1715 / 1715 515 / 515 Balance 1715 / 1715 515 / 515 Weight 74.4 kg Intake: IV 515 / 515 515 / 515 Vancomycin Inj 1,500 MG In NS 515 / 515 515 / 515 Inj 500 ML @ 250 mls/hr IV.SIG Q12H [facility] Rx#:[id number] Oral 1200 / 1200 Other: # Voids 3 2 Date of Last Bowel Movement 05/28/18 05/29/18 # Bowel Movements 1 Narrative: GENERAL: NAD SKIN: Warm and dry. HEAD: Normocephalic. EYES: No scleral icterus. No injection or drainage. NECK: Supple, trachea midline. No JVD or lymphadenopathy. CARDIOVASCULAR: Regular rate and rhythm without murmurs, gallops, or rubs. RESPIRATORY: Breath sounds equal bilaterally. No accessory muscle use. GASTROINTESTINAL: Abdomen soft, non-tender, nondistended. MUSCULOSKELETAL: No cyanosis, or edema. BACK: Nontender without obvious deformity. No CVA tenderness. Neck: eschar appearing wound on posterior neck Results - Labs CBC & Chem 7: 05/28/18 03:39 05/30/18 03:31 Laboratory Results - last 24 hr 05/30/18 03:31 Creatinine 0.51 L Estimated GFR Greater than 89 Microbiology 05/24/18 17:15 Blood - Peripheral Aerobic Blood Culture - Final No growth in 5 days 05/24/18 17:15 Blood - Peripheral Anaerobic Blood Culture - Final No growth in 5 days 05/24/18 17:00 Blood - Peripheral Aerobic Blood Culture - Final No growth in 5 days 05/24/18 17:00 Blood - Peripheral Anaerobic Blood Culture - Final No growth in 5 days - Procedures NONE Assessment and Plan - Assessment (1) Neck pain Code(s): M54.2 - Cervicalgia Status: Acute (2) Localized swelling, mass and lump, neck Code(s): R22.1 - Localized swelling, mass and lump, neck Status: Acute - Plan 62-year-old man with Neck swelling/ESCHAR -Neck MRI today 05/30/18 for further evaluation -Continue vancomycin per ID; cultures have remained negative to date -s/p Prednisone -Appreciate input from general surgery, ID Continue Silvadene cream over eschar Per Gen surgery :Eschar area should slough off--may take a few weeks Rhabdomyolysis-improving Right hip pain -Continue pain management, PT to treat and eval Hypertension -Continue home lisinopril; clonidine as needed Chronic pain -Continued scheduled pain and anxiety medications -continue outpatient medications
[2018-05-30] MEDS ORDERED: Gadobutrol PF 7.5 MMOL/7.5 ML Vial (for RAD) IV.SIG ONE (11:09)
--- NOTE | 2018-05-30 11:23 | MR ---
EXAM DATE: 05/30/2018 8:35 AM EDT AGE/SEX: 62 years / Male INDICATIONS: Abscess. Muscle spasms right side of head and neck. CLINICAL DATA: This is the patient's subsequent encounter. Patient reports that signs and symptoms h ave been present for 4 - 6 days and indicates a pain score of 3/10. MEDICAL/SURGICAL HISTORY: None. Discectomy, lumbar. Left hip rodding. Right arm surgery. COMPARISON: [facility] [place], CT SOFT TISSUE NECK W CONTRAST, 05/24/2018. [facility] [place], CT CERVICAL SPINE W/O CONTRAST , 12/24/2016. . TECHNIQUE: Multisequence, multiplanar MRI examination was performed without contrast and after the i ntravenous administration of 7.5 ml Gadavist (gadobutrol) contrast as a single exam dose. FINDINGS: There is extensive edema and enlargement of the right posterior paravertebral muscles in the neck as well as fluid collection extending between the muscle bundles. There is diffuse enhancement of the af fected right paravertebral musculature and rim enhancement of the fluid between the muscles raising t he possibility of abscess and myositis. The fluid collection is irregular in shape but measures 7.4 x 6.9 cm in greatest dimension. There appears to be communication with the neck laterally. Diffuse sub cutaneous edema is noted on the right consistent with cellulitis also. CONCLUSION: 1. Extensive edema and enlargement of the right posterior paravertebral muscles in the neck as well as fluid collection extending between the muscle bundles. There is diffuse enhancement of the affecte d right paravertebral musculature and rim enhancement of the fluid between the muscles raising the po ssibility of abscess and myositis. The fluid collection is irregular in shape but measures 7.4 x 6.9 cm in greatest dimension. There appears to be communication with the neck laterally. Diffuse subcutan eous edema is noted on the right consistent with cellulitis also. Electronically signed by: Jeovanny Calles MD 05/30/2018 11:21 AM EDT
--- NOTE | 2018-05-30 12:19 | P.PNID ---
Subjective Remarks: Pt is c/o persistent pain and wporsening swelling Had MRI of the neck today: 7.5x 6.9 fluid collection, irregular He is pleasant today No fever blood clx negative - final Antibiotics: vanco Allergies/Adverse Reactions: Allergies No Known Drug Allergies Allergy (Verified 05/24/18 20:19) NONE *MDRO Multi-Drug Resistant Organism Adverse Reaction (Unknown, Uncoded 05/24/18 20:19) NONE 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 - 08/05/2016 Objective Vital Signs 05/29/18 16:00 05/29/18 20:00 05/30/18 00:00 Temperature 98.2 F 97.8 F 97.8 F Pulse Rate 66 74 70 Respiratory Rate 18 18 18 Blood Pressure 137/86 132/78 126/84 Pulse Oximetry 96 97 97 05/30/18 04:00 05/30/18 08:00 Temperature 97.6 F 98.0 F Pulse Rate 72 64 Respiratory Rate 18 16 Blood Pressure 128/82 137/89 Pulse Oximetry 97 98 Intake & Output 05/29/18 05/30/18 05/30/18 18:59 06:59 18:59 Intake Total 1715 / 1715 515 / 515 Balance 1715 / 1715 515 / 515 Weight 74.4 kg Intake: IV 515 / 515 515 / 515 Vancomycin Inj 1,500 MG In NS 515 / 515 515 / 515 Inj 500 ML @ 250 mls/hr IV.SIG Q12H [facility] Rx#:[id number] Oral 1200 / 1200 Other: # Voids 3 2 Date of Last Bowel Movement 05/28/18 05/29/18 # Bowel Movements 1 05/24/18 17:15 Blood - Peripheral Aerobic Blood Culture - Final No growth in 5 days 05/24/18 17:15 Blood - Peripheral Anaerobic Blood Culture - Final No growth in 5 days 05/24/18 17:00 Blood - Peripheral Aerobic Blood Culture - Final No growth in 5 days 05/24/18 17:00 Blood - Peripheral Anaerobic Blood Culture - Final No growth in 5 days Lab - Chemistry Results 05/30/18 03:31 Creatinine 0.51 L Estimated GFR Greater than 89 Imaging: ITS Impressions Hip X-Ray 05/24/18 00:00 CONCLUSION: 1. Evidence of prior hip screw on the right. 2. No evidence fracture. 3. Mild osteoarthritic findings of the right hip. Soft Tissue Neck CT 05/24/18 13:36 CONCLUSION: 1. Generalized inflammatory process involving the right perivertebral space. There is enlargement and decreased density of the muscles characteristic of myositis. There is no evidence of discrete mass, abnormal fluid collections or lymphadenopathy. 2. Soft tissue structures of the neck are otherwise unremarkable. There are no acute bony abnormalities. Neck MRI 05/30/18 00:00 CONCLUSION: 1. Extensive edema and enlargement of the right posterior paravertebral muscles in the neck as well as fluid collection extending between the muscle bundles. There is diffuse enhancement of the affected right paravertebral musculature and rim enhancement of the fluid between the muscles raising the possibility of abscess and myositis. The fluid collection is irregular in shape but measures 7.4 x 6.9 cm in greatest dimension. There appears to be communication with the neck laterally. Diffuse subcutaneous edema is noted on the right consistent with cellulitis also. Physical Exam: GENERAL: NAD SKIN: Warm and dry. EYES: Pupils equal and round. No scleral icterus. No injection or drainage. ENT: No nasal bleeding or discharge. Mucous membranes pink and moist. NECK: flexed to the left Indurated, red are on posterior and side neck quite tender to touch, no fluctuance Area of edema and tenderness looks bigger today ? some fluctuance Black dry eschar geometrically repeating the pattern of pts neck chain and pendant - pt showed it to me: findings cw pressure injury RESPIRATORY: No accessory muscle use. breathing unlaboured GASTROINTESTINAL: Abdomen soft, non-tender, nondistended. Hepatic and splenic margins not palpable. MUSCULOSKELETAL: Extremities without clubbing, cyanosis, or edema. No obvious deformities. NEUROLOGICAL: Awake and alert. No obvious cranial nerve deficits. Motor grossly within normal limits. Five out of 5 muscle strength in the arms and legs. Normal speech. PSYCHIATRIC: calm, pleasant and cooperative Assessment and Plan - Plan Myositis neck : abscess suspected on the MRI, however its of irregular shape pt c/o non improving paina nd also now c/o difficulty swallowing Skin lesion most cw pressure injury Lymphopenia, thrombocytopenia HIV MATTHIAS neg cont vanco MRI of soft tissues neck w contast chk hepatitis profile MRI image was dw Dr Calles, radiology Dw Dr Lopez he recmmended against surgical drainage 2/2 a large defect resulting from it dw IR radiologist - its accesible for aspiration. will consult IR
--- NOTE | 2018-05-30 15:48 | US ---
EXAM DATE: 05/30/2018 12:00 AM EDT AGE/SEX: 62 years / Male INDICATIONS: Right posterior neck swelling. CLINICAL DATA: This is the patient's initial encounter. Patient reports that signs and symptoms have been present for 2 days and indicates a pain score of 5/10. MEDICAL/SURGICAL HISTORY: Hypertension. Blood transfusion. Spinal fracture. Chronic back pain. . Metal bone fixation hardware. COMPARISON: [facility] [place] CONTRAST, 05/24/2018. MRI soft tissue neck 05/30/2018 . FINDINGS: Grayscale and color Doppler imaging of the soft tissues of the right posterior neck were performed an d correlated to the prior MRI. Diffuse edema seen throughout the subcutaneous tissues and muscles. No fluid collections observed. No abscess. Mild appreciable hyperemia. CONCLUSION: 1. Edema throughout the muscles and subcutaneous tissue without a fluid collection. In particular, n o abscess observed. The signal abnormality on the recent MRI correlates to edema throughout the muscl es and subcutaneous tissue and does not relate to a loculated fluid collection. Electronically signed by: Cristian Fowler MD 05/30/2018 3:46 PM EDT
[2018-05-31] MEDS: Loratadine 10 MG Tablet PO SCH (08:49)
[2018-05-31] MEDS: Senna/Docusate Sodium 8.6/50 MG Tablet PO SCH ×2 (08:49→21:32)
[2018-05-31] MEDS: Lisinopril 20 MG Tablet PO SCH (08:50)
[2018-05-31] MEDS: Vancomycin Inj 1,500 MG in Sodium Chlor 0.9% Inj 500 ML IV.SIG SCH ×2 (08:50→21:30)
--- NOTE | 2018-05-31 10:31 | P.PN ---
Subjective Interval history: Follow up with right posterior neck eschar 05/27/18-Patient seen and examined;stable and afebrile, no chest pain or shortness of breath 05/28/18-patient seen and examined, complains of back, head right shoulder and neck pain. Afebrile. Culture negative to date. Requesting more narcotics. 05/29/18-patient seen and examined, stable, afebrile. Case discussed with nurse architect manager 05/30/18-patient seen and examined, plan for Neck MRI. Still with some Neck pain ; afebrile 05/31/18-patient seen and examined, neck ultrasound without any evidence of loculated fluid collection;, still with some neck pain but no headache, afebrile Physical Exam Vital signs: Vital Signs 05/30/18 12:00 05/30/18 16:00 05/30/18 21:17 Temperature 96.2 F L 98.2 F 97.8 F Pulse Rate 70 76 72 Respiratory Rate 18 18 16 Blood Pressure 135/91 H 139/81 136/82 Pulse Oximetry 96 96 96 05/31/18 00:00 05/31/18 04:00 05/31/18 07:00 Temperature 97.9 F 98 F Pulse Rate 72 63 Respiratory Rate 18 18 12 Blood Pressure 135/81 130/80 Pulse Oximetry 96 95 05/31/18 08:00 Temperature 98.2 F Pulse Rate 67 Respiratory Rate 12 Blood Pressure 166/90 H Pulse Oximetry 97 Intake & Output 05/30/18 05/31/18 05/31/18 18:59 06:59 18:59 Intake Total 1115 / 1115 515 / 515 Balance 1115 / 1115 515 / 515 Weight 75.4 kg Intake: IV 515 / 515 515 / 515 Vancomycin Inj 1,500 MG In NS 515 / 515 515 / 515 Inj 500 ML @ 250 mls/hr IV.SIG Q12H [facility] Rx#:[id number] Oral 600 / 600 Other: # Voids 2 Date of Last Bowel Movement 05/30/18 05/30/18 05/31/18 Narrative: GENERAL: NAD SKIN: Warm and dry. HEAD: Normocephalic. EYES: No scleral icterus. No injection or drainage. NECK: Supple, trachea midline. No JVD or lymphadenopathy. CARDIOVASCULAR: Regular rate and rhythm without murmurs, gallops, or rubs. RESPIRATORY: Breath sounds equal bilaterally. No accessory muscle use. GASTROINTESTINAL: Abdomen soft, non-tender, nondistended. MUSCULOSKELETAL: No cyanosis, or edema. BACK: Nontender without obvious deformity. No CVA tenderness. Neck: eschar appearing wound on posterior neck, however improving with some surrounding cellulitis Results - Labs CBC & Chem 7: 05/28/18 03:39 05/30/18 03:31 - Imaging Impressions Neck MRI 05/30/18 00:00 CONCLUSION: 1. Extensive edema and enlargement of the right posterior paravertebral muscles in the neck as well as fluid collection extending between the muscle bundles. There is diffuse enhancement of the affected right paravertebral musculature and rim enhancement of the fluid between the muscles raising the possibility of abscess and myositis. The fluid collection is irregular in shape but measures 7.4 x 6.9 cm in greatest dimension. There appears to be communication with the neck laterally. Diffuse subcutaneous edema is noted on the right consistent with cellulitis also. Neck Ultrasound 05/30/18 00:00 CONCLUSION: 1. Edema throughout the muscles and subcutaneous tissue without a fluid collection. In particular, no abscess observed. The signal abnormality on the recent MRI correlates to edema throughout the muscles and subcutaneous tissue and does not relate to a loculated fluid collection. - Procedures NONE Assessment and Plan - Assessment (1) Neck pain Code(s): M54.2 - Cervicalgia Status: Acute (2) Localized swelling, mass and lump, neck Code(s): R22.1 - Localized swelling, mass and lump, neck Status: Acute - Plan 62-year-old man with Neck swelling/ESCHAR -Neck MRI followed by soft tissue ultrasound on May 30, 2018 without any evidence of fluid collection or pocket of abscess -Continue vancomycin per ID; cultures have remained negative to date -s/p Prednisone -Appreciate input from general surgery, ID Continue Silvadene cream over eschar Per Gen surgery :Eschar area should slough off--may take a few weeks Rhabdomyolysis-improving Right hip pain -Continue pain management, PT to treat and eval Hypertension -Continue home lisinopril; clonidine as needed Chronic pain -Continued scheduled pain and anxiety medications -continue outpatient medications
--- NOTE | 2018-05-31 12:06 | P.PNGS ---
Subjective Interval history: Ambulating in his room No issues Physical Exam Vital signs: Vital Signs 05/30/18 16:00 05/30/18 21:17 05/31/18 00:00 Temperature 98.2 F 97.8 F 97.9 F Pulse Rate 76 72 72 Respiratory Rate 18 16 18 Blood Pressure 139/81 136/82 135/81 Pulse Oximetry 96 96 96 05/31/18 04:00 05/31/18 07:00 05/31/18 08:00 Temperature 98 F 98.2 F Pulse Rate 63 67 Respiratory Rate 18 12 12 Blood Pressure 130/80 166/90 H Pulse Oximetry 95 97 Intake & Output 05/30/18 05/31/18 05/31/18 18:59 06:59 18:59 Intake Total 1115 / 1115 515 / 515 515 / 515 Balance 1115 / 1115 515 / 515 515 / 515 Weight 75.4 kg Intake: IV 515 / 515 515 / 515 515 / 515 Vancomycin Inj 1,500 MG In NS 515 / 515 515 / 515 515 / 515 Inj 500 ML @ 250 mls/hr IV.SIG Q12H [facility] Rx#:[id number] Oral 600 / 600 Other: # Voids 2 Date of Last Bowel Movement 05/30/18 05/30/18 05/31/18 Narrative: Alert and awake Posterior neck---with slightly less erythema; slightly less edema; tender Results - Labs 05/28/18 03:39 06/01/18 06:51 - Imaging Imaging: ITS Impressions Hip X-Ray 05/24/18 00:00 CONCLUSION: 1. Evidence of prior hip screw on the right. 2. No evidence fracture. 3. Mild osteoarthritic findings of the right hip. Soft Tissue Neck CT 05/24/18 13:36 CONCLUSION: 1. Generalized inflammatory process involving the right perivertebral space. There is enlargement and decreased density of the muscles characteristic of myositis. There is no evidence of discrete mass, abnormal fluid collections or lymphadenopathy. 2. Soft tissue structures of the neck are otherwise unremarkable. There are no acute bony abnormalities. Neck MRI 05/30/18 00:00 CONCLUSION: 1. Extensive edema and enlargement of the right posterior paravertebral muscles in the neck as well as fluid collection extending between the muscle bundles. There is diffuse enhancement of the affected right paravertebral musculature and rim enhancement of the fluid between the muscles raising the possibility of abscess and myositis. The fluid collection is irregular in shape but measures 7.4 x 6.9 cm in greatest dimension. There appears to be communication with the neck laterally. Diffuse subcutaneous edema is noted on the right consistent with cellulitis also. Neck Ultrasound 05/30/18 00:00 CONCLUSION: 1. Edema throughout the muscles and subcutaneous tissue without a fluid collection. In particular, no abscess observed. The signal abnormality on the recent MRI correlates to edema throughout the muscles and subcutaneous tissue and does not relate to a loculated fluid collection. Assessment and Plan - Assessment (1) Neck pain Code(s): M54.2 - Cervicalgia Status: Acute Plan: 62 year old male with neck pain; large area of eschar on RIGHT posterior neck -Continue Silvadene cream over eschar -Eschar area should slough off--may take a few weeks -Regular diet -If no improvement can discuss possible surgical intervention -ID following---s/p MRI-- no drainage collection - Attending Attestation I CERTIFY AND ATTEST I PERSONALLY EXAMINED THE PATIENT. ENGINEERING MANAGER [employer] DOCUMENTED OUR VISIT. WOUND IS LIKELY ESCHAR SECONDARY TO PRESSURE ULCER. MAY NEED DEBRIDEMENT IF IT FAILS TO HEAL. WILL REQUIRE PLASTIC SURGERY FLAP CLOSURE. ELOISA GUTIERREZ MD FACS
[2018-06-01 07:45] LABS: Glomerular Filtration Rate Greater Than 89 mL/min (>89)
[2018-06-01] MEDS: Lisinopril 20 MG Tablet PO SCH (09:00)
[2018-06-01] MEDS: Loratadine 10 MG Tablet PO SCH (09:01)
[2018-06-01] MEDS: Vancomycin Inj 1,500 MG in Sodium Chlor 0.9% Inj 500 ML IV.SIG SCH (09:01)
[2018-06-01] MEDS: Senna/Docusate Sodium 8.6/50 MG Tablet PO SCH (09:01)
[2018-06-01 11:05] VITALS: RESP 14
--- NOTE | 2018-06-01 12:12 | P.PN ---
Subjective Interval history: patient complains of persistent pain left side of the neck some difficulty swallowing afebrile no chills Physical Exam Vital signs: Vital Signs 05/31/18 15:41 05/31/18 16:00 05/31/18 20:00 Temperature 98.5 F 98.2 F Pulse Rate 76 74 Respiratory Rate 12 18 14 Blood Pressure 152/85 H 143/84 H Pulse Oximetry 98 98 06/01/18 00:00 06/01/18 04:00 06/01/18 07:00 Temperature 97.9 F 98.4 F Pulse Rate 75 70 Respiratory Rate 14 18 12 Blood Pressure 132/86 143/80 H Pulse Oximetry 96 100 06/01/18 08:00 Temperature 98.2 F Pulse Rate 74 Respiratory Rate 14 Blood Pressure 157/98 H Pulse Oximetry 98 Intake & Output 05/31/18 06/01/18 06/01/18 18:59 06:59 18:59 Intake Total 1235 / 1235 515 / 515 515 / 515 Balance 1235 / 1235 515 / 515 515 / 515 Intake: IV 515 / 515 515 / 515 515 / 515 Vancomycin Inj 1,500 MG In NS 515 / 515 515 / 515 515 / 515 Inj 500 ML @ 250 mls/hr IV.SIG Q12H [facility] Rx#:[id number] Oral 720 / 720 Other: # Voids 3 Date of Last Bowel Movement 05/31/18 05/31/18 05/31/18 # Bowel Movements 1 Narrative: Alert and awake neck- posterior area- with induration and erythema, tender to touch- no axillary lymphadenopathy no rales regular rhythm extremities no edema Results - Labs CBC & Chem 7: 05/28/18 03:39 06/01/18 06:51 Laboratory Results - last 24 hr 06/01/18 06:51 Creatinine 0.63 Estimated GFR Greater than 89 - Procedures NONE Assessment and Plan - Assessment (1) Neck pain Code(s): M54.2 - Cervicalgia Status: Acute (2) Localized swelling, mass and lump, neck Code(s): R22.1 - Localized swelling, mass and lump, neck Status: Acute - Plan 62-year-old man with Neck Myositis, -Neck MRI followed by soft tissue ultrasound on May 30, 2018 without any evidence of fluid collection or pocket of abscess -Continue vancomycin per ID; cultures have remained negative to date -s/p Prednisone -Appreciate input from general surgery, ID Continue Silvadene cream over eschar Per Gen surgery :Eschar area should slough off--may take a few weeks d/w Dr. Hitchcock- will reassess today Rhabdomyolysis-improving chronic Right hip pain -Continue pain management, PT to treat and eval Hypertension -Continue home lisinopril; clonidine as needed Chronic pain - patient relates multiple orthopedic surgeries -Continued scheduled pain and anxiety medications -continue outpatient medications
[2018-06-01 13:20] VITALS: BP 141/76; PULSE 76; TEMP 98.4; O2SAT 96
--- NOTE | 2018-06-01 15:08 | P.PNID ---
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 - 08/05/2016 Objective Vital Signs 05/31/18 15:41 05/31/18 16:00 05/31/18 20:00 Temperature 98.5 F 98.2 F Pulse Rate 76 74 Respiratory Rate 12 18 14 Blood Pressure 152/85 H 143/84 H Pulse Oximetry 98 98 06/01/18 00:00 06/01/18 04:00 06/01/18 07:00 Temperature 97.9 F 98.4 F Pulse Rate 75 70 Respiratory Rate 14 18 12 Blood Pressure 132/86 143/80 H Pulse Oximetry 96 100 06/01/18 08:00 06/01/18 12:00 Temperature 98.2 F 98.4 F Pulse Rate 74 76 Respiratory Rate 14 14 Blood Pressure 157/98 H 141/76 H Pulse Oximetry 98 96 Intake & Output 05/31/18 06/01/18 06/01/18 18:59 06:59 18:59 Intake Total 1235 / 1235 515 / 515 515 / 515 Balance 1235 / 1235 515 / 515 515 / 515 Intake: IV 515 / 515 515 / 515 515 / 515 Vancomycin Inj 1,500 MG In NS 515 / 515 515 / 515 515 / 515 Inj 500 ML @ 250 mls/hr IV.SIG Q12H [facility] Rx#:[id number] Oral 720 / 720 Other: # Voids 3 Date of Last Bowel Movement 05/31/18 05/31/18 05/31/18 # Bowel Movements 1 Lab - Chemistry Results 06/01/18 06:51 Creatinine 0.63 Estimated GFR Greater than 89 Imaging: ITS Impressions Hip X-Ray 05/24/18 00:00 CONCLUSION: 1. Evidence of prior hip screw on the right. 2. No evidence fracture. 3. Mild osteoarthritic findings of the right hip. Soft Tissue Neck CT 05/24/18 13:36 CONCLUSION: 1. Generalized inflammatory process involving the right perivertebral space. There is enlargement and decreased density of the muscles characteristic of myositis. There is no evidence of discrete mass, abnormal fluid collections or lymphadenopathy. 2. Soft tissue structures of the neck are otherwise unremarkable. There are no acute bony abnormalities. Neck MRI 05/30/18 00:00 CONCLUSION: 1. Extensive edema and enlargement of the right posterior paravertebral muscles in the neck as well as fluid collection extending between the muscle bundles. There is diffuse enhancement of the affected right paravertebral musculature and rim enhancement of the fluid between the muscles raising the possibility of abscess and myositis. The fluid collection is irregular in shape but measures 7.4 x 6.9 cm in greatest dimension. There appears to be communication with the neck laterally. Diffuse subcutaneous edema is noted on the right consistent with cellulitis also. Neck Ultrasound 05/30/18 00:00 CONCLUSION: 1. Edema throughout the muscles and subcutaneous tissue without a fluid collection. In particular, no abscess observed. The signal abnormality on the recent MRI correlates to edema throughout the muscles and subcutaneous tissue and does not relate to a loculated fluid collection. Physical Exam: GENERAL: NAD SKIN: Warm and dry. EYES: Pupils equal and round. No scleral icterus. No injection or drainage. ENT: No nasal bleeding or discharge. Mucous membranes pink and moist. NECK: flexed to the left Induration improving , redness are on posterior and side neck resolving quite tender to touch, no fluctuance appears better, though still quite tender per pt Black dry eschar geometrically repeating the pattern of pts neck chain and pendant - pt showed it to me: findings cw pressure injury RESPIRATORY: No accessory muscle use. breathing unlaboured MUSCULOSKELETAL: Extremities without clubbing, cyanosis, or edema. No obvious deformities. NEUROLOGICAL: Awake and alert. No obvious cranial nerve deficits. Motor grossly within normal limits. Five out of 5 muscle strength in the arms and legs. Normal speech. PSYCHIATRIC: pleasant and cooperative Assessment and Plan - Plan Myositis neck related to pressure injury No abscess per US Skin lesion most cw pressure injury Lymphopenia, thrombocytopenia HIV MATTHIAS neg dc vacomycin OK to dc pt If worsening of symptoms need to report back dw Dr Weaver
[2018-06-01 18:23] LABS: Hepatitis A IgM Antibody Nonreactive (Nonreactive); Hepatitits B Surface Antigen Nonreactive (Nonreactive)
[2018-06-02] MEDS ORDERED: Pharmacy Ordered Lab Info OTHER ONE (08:45)
--- NOTE | 2018-06-12 08:38 | P.DS ---
Date of admission: 05/24/18 17:15 Primary care physician: UNKNOWN Attending physician on discharge: Kilo Weaver Anticipated date of discharge: 06/01/18 Brief History from admission: Patient is a 62-year-old male with a past medical history significant for hypertension and chronic pain. Chronic pain is mostly related to back injuries and hip replacement. He presents to the ED with a complaint of neck swelling and pain. He reports that he woke up yesterday morning and his neck was very swollen and painful. Tells me that pain is worse when he turns it to the right. He is having no difficulties talking or swallowing. No headache, dizziness or syncope. No loss of feeling or strength in his arms bilaterally. He does not remember any injury or insect bite. No new medications. Denies any fevers or chills. He does have a secondary complaint of right hip and buttock pain. Denies any injury to the hip but tells me that it is "full of pins and rods". Pain is not radiating and is stabbing in nature. He denies any wound or skin injury. Patient update on day of discharge: afebrile, still with pain, no difficulty swallowing, or shorntess of breath on chronic pain meds DS: Diagnosis - Discharge Diagnosis (1) Neck pain Status: Acute (2) Localized swelling, mass and lump, neck Status: Acute DS: Summary Hospital Course: 62-year-old man with Neck Myositis, -Neck MRI followed by soft tissue ultrasound on May 30, 2018 without any evidence of fluid collection or pocket of abscess -Continue vancomycin per ID; cultures have remained negative to date -s/p Prednisone -Appreciate input from general surgery, ID Continue Silvadene cream over eschar Per Gen surgery :Eschar area should slough off--may take a few weeks d/w Dr. Hitchcock- Rhabdomyolysis-improving. encourge po fluids chronic Right hip pain -Continue pain management, PT to treat and eval Hypertension -Continue home lisinopril; clonidine as needed Chronic pain - patient relates multiple orthopedic surgeries -Continued scheduled pain and anxiety medications -continue outpatient medications - Time Spent with Patient Total time spent providing and/or coordinating discharge services: Less than 30 minutes - Quality: VTE Deep Vein Thrombosis/Pulmonary Embolism Present on Admission: No Results Procedures completed during hospitalization: NONE - Impressions ITS Impressions Hip X-Ray 05/24/18 00:00 CONCLUSION: 1. Evidence of prior hip screw on the right. 2. No evidence fracture. 3. Mild osteoarthritic findings of the right hip. Soft Tissue Neck CT 05/24/18 13:36 CONCLUSION: 1. Generalized inflammatory process involving the right perivertebral space. There is enlargement and decreased density of the muscles characteristic of myositis. There is no evidence of discrete mass, abnormal fluid collections or lymphadenopathy. 2. Soft tissue structures of the neck are otherwise unremarkable. There are no acute bony abnormalities. Neck MRI 05/30/18 00:00 CONCLUSION: 1. Extensive edema and enlargement of the right posterior paravertebral muscles in the neck as well as fluid collection extending between the muscle bundles. There is diffuse enhancement of the affected right paravertebral musculature and rim enhancement of the fluid between the muscles raising the possibility of abscess and myositis. The fluid collection is irregular in shape but measures 7.4 x 6.9 cm in greatest dimension. There appears to be communication with the neck laterally. Diffuse subcutaneous edema is noted on the right consistent with cellulitis also. Neck Ultrasound 05/30/18 00:00 CONCLUSION: 1. Edema throughout the muscles and subcutaneous tissue without a fluid collection. In particular, no abscess observed. The signal abnormality on the recent MRI correlates to edema throughout the muscles and subcutaneous tissue and does not relate to a loculated fluid collection. Discharge Plan - Discharge Disposition Patient Disposition: 07 Against Medical Advice - Discharge Condition Condition: Stable - Discharge Order Discharge Orders: AMA Discharge (Routine); Ordered 06/01/18 Ordered By: Isamar Sandoval - Physicians Team Primary Care Provider: UNKNOWN, Attending Provider: Kilo Weaver Other Providers: Virgil Lopez MD ; Yaneth Hitchcock MD
== END 2018-06-01 19:45 | disposition left against medical advice (07) ==
LOC: NEPC 12:37 → NEDA 17:15 → INTOOBSV 17:15 → N06 18:42 → N05 05-25 17:57
PROVIDERS: ADMIT Internal Medicine; ATTEND Internal Medicine